=== PATIENT | female | born 1940 | race American Indian/Alaskan Native ===

== ENCOUNTER 2016-11-27 12:33 | Inpatient (IN) | payer MEDICARE ==
[2016-11-27 14:16] LABS: Basophils % (Auto) 0.4 % (0.0-1.8); Eosinophils % (Auto) 1.2 % (0.0-4.3); Hematocrit 38.6 % (30.3-42.9); Hemoglobin 12.4 gm/dl (10.1-14.3); Mean Corpuscular HGB Conc 32 % (30-34); Mean Corpuscular Hemoglobin 29 pg (28-32); Mean Corpuscular Volume 91 fl (79-97); Platelet Count 143 K/mm3 (140-440); Red Blood Count 4.24 M/mm3 (3.65-5.03); White Blood Count 4.7 K/mm3 (4.5-11.0)
[2016-11-27 14:54] LABS: Alanine Aminotransferase 16 units/L (7-56); Albumin 3.5 g/dL (3.9-5); Albumin/Globulin Ratio 0.8 %; Alkaline Phosphatase 98 units/L (35-129); Anion Gap 18 mmol/L; BUN/Creatinine Ratio 17.77; Bilirubin,Total 0.7 mg/dL (0.1-1.2); Blood Urea Nitrogen 16 mg/dL (7-17); Calcium 9.1 mg/dL (8.4-10.2); Carbon Dioxide 21 mmol/L (22-30); Chloride 112.3 mmol/L (98-107); Glucose 104 mg/dL (65-100); Potassium 4.7 mmol/L (3.6-5.0); Sodium 147 mmol/L (137-145)
[2016-11-28] MEDS ORDERED: CEPHULAC PO ONE (00:31)
[2016-11-28 00:52] LABS: Bilirubin,Urine NEG (Negative); Blood,Urine SM (Negative); Ketones,Urine NEG (Negative); Leukocyte Esterase,Urine LG (Negative); Nitrite,Urine POS (Negative); Urobilinogen,Urine < 2.0 mg/dL (<2.0)
[2016-11-28 01:35] LABS: Bacteria,Urine 4+ /HPF (Negative)
[2016-11-28 01:36] LABS: WBC,Urine > 182.0 /HPF (0.0-6.0)
[2016-11-28] MEDS ORDERED: LEVAQUIN 750MG/150ML 750 MG/150 ML BAG IV ONE (01:40)
--- NOTE | 2016-11-28 01:42 | Emergency Department Report ---
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 Family states that she is less talkative today and although she is wheelchair bound she can typically walk with assistance of a person holding onto her. She is weaker today and eating completely assistance. No complaints of pain, nausea, vomiting, and patient is tolerating food and liquid intake. Patient was recently admitted here for hepatic encephalopathy. She was discharged on lactulose 3 times a day and rifaximin twice a day. 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 Daughter states that since taking patient out of the custodial on the she has not had a bowel movement despite receiving lactulose twice daily. While waiting in the ED patient developed some stuttering speech which is typical of when her ammonia level is elevated as per daughter. Severity scale (0 -10): 6 - Related Data Home Medications Medication Instructions Recorded Confirmed Last Taken Gabapentin [Neurontin] 100 mg PO BID 11/28/16 11/28/16 11/27/16 Losartan [Cozaar] 100 mg PO QDAY 11/28/16 11/28/16 11/27/16 Omeprazole 20 mg PO DAILY 11/28/16 11/28/16 11/27/16 amLODIPine [Norvasc] 5 mg PO DAILY 11/28/16 11/28/16 11/27/16 levETIRAcetam [Keppra TAB] 500 mg PO BID 11/28/16 11/28/16 11/27/16 Previous Rx's Medication Instructions Recorded Last Taken Type Lactulose [Cephulac] 20 gm PO Q8H oral.liqd 11/04/16 11/27/16 Rx Rifaximin [Xifaxan] 550 mg PO BID tablet 11/04/16 11/27/16 Rx Allergies Allergy/AdvReac Type Severity Reaction Status Date / Time Penicillins Allergy Unknown Verified 11/27/16 13:34 ED Review of Systems ROS: Stated complaint: FEELING BAD Other details as noted in HPI Comment: All other systems reviewed and negative Other: Constitutional: No fevers chills Eyes: No eye pain visual changes ENT: No ear pain or throat pain Neck: Denies pain Respiratory: Denies cough wheezing shortness of breath Cardiovascular: Denies chest pain, palpitations, syncope GI: Denies abdominal pain, nausea, vomiting, diarrhea : Denies dysuria Musculoskeletal: Denies back pain Skin: Denies rash Neurologic: Denies headache ED Past Medical Hx - Past Medical History Hx Hypertension: Yes Hx CVA: Yes (5 strokes right side weakness,with memory loss) Hx Arthritis: Yes Hx Seizures: Yes Additional medical history: peptic ulcer, c-diff, cirrohsis of the liver, - Surgical History Additional Surgical History: hysterectomy - Social History Smoking Status: Never Smoker Substance Use Type: None - Medications Home Medications: Home Medications Medication Instructions Recorded Confirmed Last Taken Type Lactulose [Cephulac] 20 gm PO Q8H oral.liqd 11/04/16 11/28/16 11/27/16 Rx Rifaximin [Xifaxan] 550 mg PO BID tablet 11/04/16 11/28/16 11/27/16 Rx Gabapentin [Neurontin] 100 mg PO BID 11/28/16 11/28/16 11/27/16 History Losartan [Cozaar] 100 mg PO QDAY 11/28/16 11/28/16 11/27/16 History Omeprazole 20 mg PO DAILY 11/28/16 11/28/16 11/27/16 History amLODIPine [Norvasc] 5 mg PO DAILY 11/28/16 11/28/16 11/27/16 History levETIRAcetam [Keppra TAB] 500 mg PO BID 11/28/16 11/28/16 11/27/16 History ED Physical Exam - General Limitations: Other - Other Other exam information: General: No limitations, patient is alert in no acute distress Head exam: Atraumatic, normocephalic Eyes exam: Normal appearance, pupils equal reactive to light, extraocular movements intact ENT: Moist mucous membrane, normal oropharynx Neck exam: Normal inspection, full range of motion, no meningismus nontender Respiratory exam: Clear to auscultation bilateral, no wheezes, rales, crackles Cardiovascular: Normal rate and rhythm, normal heart sounds Abdomen: Soft, nondistended, and nontender, with normal bowel sounds, no rebound, or guarding Extremity: Full range of motion normal inspection no deformity Back: Normal Inspection, full range of motion, no tenderness Neurologic: Alert, oriented x3, no facial droop, stuttering speech, no drift when raising bilateral arms or legs. Sensation grossly intact Psychiatric: normal affect, normal mood Skin: Warm, dry, intact ED Course Vital Signs 11/27/16 11/28/16 13:35 00:26 Temperature 97.4 F L 97.6 F Pulse Rate 60 59 L Respiratory 20 18 Rate Blood Pressure 187/98 Blood Pressure 177/76 [Right] O2 Sat by Pulse 100 100 Oximetry - Reevaluation(s) Reevaluation #1: 11/28/16 01:48 IV Levaquin, urine culture, and lactulose ordered in the ED ED Medical Decision Making - Lab Data Result diagrams: 11/27/16 13:48 11/27/16 13:48 Lab Results 11/27/16 11/27/16 11/27/16 Range/Units 13:48 13:48 13:48 WBC 4.7 (4.5-11.0) K/mm3 RBC 4.24 (3.65-5.03) M/mm3 Hgb 12.4 (10.1-14.3) gm/dl Hct 38.6 (30.3-42.9) % MCV 91 (79-97) fl MCH 29 (28-32) pg MCHC 32 (30-34) % RDW 16.0 H (13.2-15.2) % Plt Count 143 (140-440) K/mm3 Lymph % (Auto) 32.3 (13.4-35.0) % [place] % (Auto) 14.1 H (0.0-7.3) % Eos % (Auto) 1.2 (0.0-4.3) % Baso % (Auto) 0.4 (0.0-1.8) % Lymph # 1.5 (1.2-5.4) K/mm3 [place] # 0.7 (0.0-0.8) K/mm3 Eos # 0.1 (0.0-0.4) K/mm3 Baso # 0.0 (0.0-0.1) K/mm3 Seg Neutrophils % 52.0 (40.0-70.0) % Seg Neutrophils # 2.4 (1.8-7.7) K/mm3 Sodium 147 H (137-145) mmol/L Potassium 4.7 (3.6-5.0) mmol/L Chloride 112.3 H (98-107) mmol/L Carbon Dioxide 21 L (22-30) mmol/L Anion Gap 18 mmol/L BUN 16 (7-17) mg/dL Creatinine 0.9 (0.7-1.2) mg/dL Estimated GFR > 60 ml/min BUN/Creatinine Ratio 17.77 % Glucose 104 H (65-100) mg/dL Lactic Acid 2.0 (0.7-2.0) mmol/L Calcium 9.1 (8.4-10.2) mg/dL Magnesium 2.0 (1.7-2.3) mg/dL Total Bilirubin 0.7 (0.1-1.2) mg/dL AST 27 (5-40) units/L ALT 16 (7-56) units/L Alkaline Phosphatase 98 (35-129) units/L Ammonia (25-60) umol/L Total Protein 8.0 (6.3-8.2) g/dL Albumin 3.5 L (3.9-5) g/dL Albumin/Globulin Ratio 0.8 % TSH (0.270-4.200) mlU/mL Urine Color (Yellow) Urine Turbidity (Clear) Urine pH (5.0-7.0) Ur Specific [place] (1.003-1.030) Urine Protein (Negative) mg/dL Urine Glucose (UA) (Negative) mg/dL Urine Ketones (Negative) mg/dL Urine Blood (Negative) Urine Nitrite (Negative) Urine Bilirubin (Negative) Urine Urobilinogen (<2.0) mg/dL Ur Leukocyte Esterase (Negative) Urine WBC (Auto) (0.0-6.0) /HPF Urine RBC (Auto) (0.0-6.0) /HPF U Epithel Cells (Auto) (0-13.0) /HPF Urine Bacteria (Auto) (Negative) /HPF Ur Transition Epith Cell /HPF Triple Phos Crystals Amorphous Crystals Hyaline Casts /LPF 11/27/16 11/27/16 11/27/16 Range/Units 13:48 13:48 16:50 WBC (4.5-11.0) K/mm3 RBC (3.65-5.03) M/mm3 Hgb (10.1-14.3) gm/dl Hct (30.3-42.9) % MCV (79-97) fl MCH (28-32) pg MCHC (30-34) % RDW (13.2-15.2) % Plt Count (140-440) K/mm3 Lymph % (Auto) (13.4-35.0) % [place] % (Auto) (0.0-7.3) % Eos % (Auto) (0.0-4.3) % Baso % (Auto) (0.0-1.8) % Lymph # (1.2-5.4) K/mm3 [place] # (0.0-0.8) K/mm3 Eos # (0.0-0.4) K/mm3 Baso # (0.0-0.1) K/mm3 Seg Neutrophils % (40.0-70.0) % Seg Neutrophils # (1.8-7.7) K/mm3 Sodium (137-145) mmol/L Potassium (3.6-5.0) mmol/L Chloride (98-107) mmol/L Carbon Dioxide (22-30) mmol/L Anion Gap mmol/L BUN (7-17) mg/dL Creatinine (0.7-1.2) mg/dL Estimated GFR ml/min BUN/Creatinine Ratio % Glucose (65-100) mg/dL Lactic Acid 2.1 H* (0.7-2.0) mmol/L Calcium (8.4-10.2) mg/dL Magnesium (1.7-2.3) mg/dL Total Bilirubin (0.1-1.2) mg/dL AST (5-40) units/L ALT (7-56) units/L Alkaline Phosphatase (35-129) units/L Ammonia 67.0 H (25-60) umol/L Total Protein (6.3-8.2) g/dL Albumin (3.9-5) g/dL Albumin/Globulin Ratio % TSH 2.090 (0.270-4.200) mlU/mL Urine Color (Yellow) Urine Turbidity (Clear) Urine pH (5.0-7.0) Ur Specific [place] (1.003-1.030) Urine Protein (Negative) mg/dL Urine Glucose (UA) (Negative) mg/dL Urine Ketones (Negative) mg/dL Urine Blood (Negative) Urine Nitrite (Negative) Urine Bilirubin (Negative) Urine Urobilinogen (<2.0) mg/dL Ur Leukocyte Esterase (Negative) Urine WBC (Auto) (0.0-6.0) /HPF Urine RBC (Auto) (0.0-6.0) /HPF U Epithel Cells (Auto) (0-13.0) /HPF Urine Bacteria (Auto) (Negative) /HPF Ur Transition Epith Cell /HPF Triple Phos Crystals Amorphous Crystals Hyaline Casts /LPF 11/28/16 Range/Units 00:44 WBC (4.5-11.0) K/mm3 RBC (3.65-5.03) M/mm3 Hgb (10.1-14.3) gm/dl Hct (30.3-42.9) % MCV (79-97) fl MCH (28-32) pg MCHC (30-34) % RDW (13.2-15.2) % Plt Count (140-440) K/mm3 Lymph % (Auto) (13.4-35.0) % [place] % (Auto) (0.0-7.3) % Eos % (Auto) (0.0-4.3) % Baso % (Auto) (0.0-1.8) % Lymph # (1.2-5.4) K/mm3 [place] # (0.0-0.8) K/mm3 Eos # (0.0-0.4) K/mm3 Baso # (0.0-0.1) K/mm3 Seg Neutrophils % (40.0-70.0) % Seg Neutrophils # (1.8-7.7) K/mm3 Sodium (137-145) mmol/L Potassium (3.6-5.0) mmol/L Chloride (98-107) mmol/L Carbon Dioxide (22-30) mmol/L Anion Gap mmol/L BUN (7-17) mg/dL Creatinine (0.7-1.2) mg/dL Estimated GFR ml/min BUN/Creatinine Ratio % Glucose (65-100) mg/dL Lactic Acid (0.7-2.0) mmol/L Calcium (8.4-10.2) mg/dL Magnesium (1.7-2.3) mg/dL Total Bilirubin (0.1-1.2) mg/dL AST (5-40) units/L ALT (7-56) units/L Alkaline Phosphatase (35-129) units/L Ammonia (25-60) umol/L Total Protein (6.3-8.2) g/dL Albumin (3.9-5) g/dL Albumin/Globulin Ratio % TSH (0.270-4.200) mlU/mL Urine Color [place] (Yellow) Urine Turbidity Turbid (Clear) Urine pH 8.0 H (5.0-7.0) Ur Specific [place] 1.013 (1.003-1.030) Urine Protein 100 mg/dl (Negative) mg/dL Urine Glucose (UA) Neg (Negative) mg/dL Urine Ketones Neg (Negative) mg/dL Urine Blood Sm (Negative) Urine Nitrite Pos (Negative) Urine Bilirubin Neg (Negative) Urine Urobilinogen < 2.0 (<2.0) mg/dL Ur Leukocyte Esterase Lg (Negative) Urine WBC (Auto) > 182.0 H (0.0-6.0) /HPF Urine RBC (Auto) 25.0 (0.0-6.0) /HPF U Epithel Cells (Auto) 21.0 H (0-13.0) /HPF Urine Bacteria (Auto) 4+ (Negative) /HPF Ur Transition Epith Cell 4 /HPF Triple Phos Crystals 1+ Amorphous Crystals 3+ Hyaline Casts 7 /LPF - EKG Data -: EKG Interpreted by Me (sinus rhythm rate 61 LVH) - EKG Data When compared to previous EKG there are: no significant change (compared to ) - Medical Decision Making Patient is not receiving the proper dose of lactulose which could be contributing to her elevated ammonia level. I suspect that patient's generalized weakness and change is related to an acute urinary tract infection as well as mild ammonia. Patient be admitted to the hospital for further treatment. Urine culture ordered and pending. - Differential Diagnosis UTI, encephalopathy, CVA, infection Critical Care Time: No Critical care attestation.: If time is entered above; I have spent that time in minutes in the direct care of this critically ill patient, excluding procedure time. ED Disposition Clinical Impression: Generalized weakness, Hepatic encephalopathy, Urinary tract infection, Debility Disposition: OP ADMITTED IP TO THIS HOSP Is pt being admited?: Yes Condition: Stable Referrals: SHILO LEONE MD [Primary Care Provider] - 3-5 Days Time of Disposition: 01:42 (Dr saleem/hosp)
[2016-11-28] MEDS ORDERED: ZOFRAN IV PRN (02:02)
[2016-11-28] MEDS ORDERED: TYLENOL PO PRN (02:02)
--- NOTE | 2016-11-28 02:05 | History and Physical Report ---
History of Present Illness Date of examination: 11/28/16 History of present illness: 76-year-old woman with a history of cirrhosis, hypertension, seizure, CVA with hemiparesis, memory loss was brought to the emergency room for generalized weakness. Daughter state that the patient was discharged from the senior care on Tuesday. she has difficulty ambulating at home. She also state that the patient seems a little bit more disoriented Patient denies chest pain, palpitation, shortness of breath, cough, abdominal pain, hematochezia, dysuria, frequency, focal weakness, dysarthria, fever chills , polydipsia polyuria, hot or cold intolerance, easy bruisability, or rash or bleeding from mucosal membrane, rhinorrhea, epistaxis, earache, tinnitus, blurry vision, eye discharge, anxiety, depression. Other review of systems negative PAST SURGICAL HISTORY: Fatty tumor removal from the face SOCIAL HISTORY: Alcohol, tobacco, drugs FAMILY HISTORY: Hypertension Medications and Allergies Allergies Allergy/AdvReac Type Severity Reaction Status Date / Time Penicillins Allergy Unknown Verified 11/27/16 13:34 Home Medications Medication Instructions Recorded Confirmed Last Taken Type Lactulose [Cephulac] 20 gm PO Q8H oral.liqd 11/04/16 11/28/16 11/27/16 Rx Rifaximin [Xifaxan] 550 mg PO BID tablet 11/04/16 11/28/16 11/27/16 Rx Gabapentin [Neurontin] 100 mg PO BID 11/28/16 11/28/16 11/27/16 History Losartan [Cozaar] 100 mg PO QDAY 11/28/16 11/28/16 11/27/16 History Omeprazole 20 mg PO DAILY 11/28/16 11/28/16 11/27/16 History amLODIPine [Norvasc] 5 mg PO DAILY 11/28/16 11/28/16 11/27/16 History levETIRAcetam [Keppra TAB] 500 mg PO BID 11/28/16 11/28/16 11/27/16 History Active Meds: Active Medications Amlodipine Besylate (Norvasc) 5 mg PO DAILY KRISTIN Gabapentin (Neurontin) 100 mg PO BID KRISTIN Levofloxacin/Dextrose (Levaquin 750mg/150ml) 750 mg in 150 mls @ 100 mls/hr IV ONCE ONE Stop: 11/28/16 03:09 Lactulose (Cephulac) 20 gm PO Q8H [facility] Levetiracetam (Keppra) 500 mg PO BID [facility] Miscellaneous Medication (Omeprazole [Omeprazole]) 20 mg PO DAILY KRISTIN Rifaximin (Xifaxan) 550 mg PO BID KRISTIN Exam - Physical Exam Narrative exam: Gen. appearance: Patient lying in bed, no apparent distress HEENT: Normocephalic, atraumatic, pupils equally round and reactive to light, extraocular movement intact, and no sclericterus,. No JVD or thyromegaly or nodule,neck supple, no carotid bruit ,mucous membranes moist, no exudate or erythema Heart: S1, S2, regular rate and rhythm Lungs: Clear to auscultation bilaterally, breathing comfortable Abdomen: Positive bowel sounds, nontender, nondistended, no organomegaly Extremity: 2+ edema, no cyanosis, clubbing Skin: No rash, nodules, warm, dry Neuro: Oriented 3, cranial nerves II-12 intact, speech is fluent, motor and sensory intact - Constitutional Vitals: Temp Pulse Resp BP Pulse Ox 97.6 F 59 L 18 177/76 100 11/28/16 00:26 11/28/16 00:26 11/28/16 00:26 11/28/16 00:26 11/28/16 00:26 Results - Labs CBC & Chem 7: 11/27/16 13:48 11/27/16 13:48 Labs: Abnormal lab results 11/27/16 11/27/16 11/27/16 Range/Units 13:48 13:48 13:48 RDW 16.0 H (13.2-15.2) % [place] % (Auto) 14.1 H (0.0-7.3) % Sodium 147 H (137-145) mmol/L Chloride 112.3 H (98-107) mmol/L Carbon Dioxide 21 L (22-30) mmol/L Glucose 104 H (65-100) mg/dL Lactic Acid (0.7-2.0) mmol/L Ammonia 67.0 H (25-60) umol/L Albumin 3.5 L (3.9-5) g/dL Urine pH (5.0-7.0) Urine WBC (Auto) (0.0-6.0) /HPF U Epithel Cells (Auto) (0-13.0) /HPF 11/27/16 11/28/16 Range/Units 16:50 00:44 RDW (13.2-15.2) % [place] % (Auto) (0.0-7.3) % Sodium (137-145) mmol/L Chloride (98-107) mmol/L Carbon Dioxide (22-30) mmol/L Glucose (65-100) mg/dL Lactic Acid 2.1 H* (0.7-2.0) mmol/L Ammonia (25-60) umol/L Albumin (3.9-5) g/dL Urine pH 8.0 H (5.0-7.0) Urine WBC (Auto) > 182.0 H (0.0-6.0) /HPF U Epithel Cells (Auto) 21.0 H (0-13.0) /HPF Assessment and Plan Hepatic encephalopathy Urinary tract infection Hypernatremia Hypertension Cirrhosis Seizure Admits medicine Start IV antibiotics, lactulose Diurese with Lasix Continue outpatient medication, start DVT prophylaxis
[2016-11-28] MEDS: CEPHULAC PO SCH ×3 (03:41→22:43)
[2016-11-28] MEDS ORDERED: LOVENOX SUB-Q SCH (10:00)
--- NOTE | 2016-11-28 11:40 | Event Note ---
Date: 11/28/16 Patient admitted for UTI, patient chronically sick cirrhosis and was in the custodial. Recently discharged from custodial.
[2016-11-28] MEDS: XIFAXAN PO SCH ×2 (12:15→22:42)
[2016-11-28] MEDS: NORVASC PO SCH (12:16)
[2016-11-28] MEDS: LASIX PO SCH (12:16)
[2016-11-28] MEDS: NEURONTIN PO SCH ×2 (12:17→22:42)
[2016-11-28] MEDS: KEPPRA PO SCH ×2 (12:17→22:42)
[2016-11-28] MEDS: LEVAQUIN 750MG/150ML 750 MG/150 ML BAG IV SCH (12:18)
[2016-11-28] MEDS: PROTONIX PO SCH (14:06)
[2016-11-29] MEDS: CEPHULAC PO SCH ×2 (04:21→14:40)
[2016-11-29 08:02] LABS: Basophils % (Auto) 0.3 % (0.0-1.8); Eosinophils % (Auto) 3.7 % (0.0-4.3); Hematocrit 34.5 % (30.3-42.9); Hemoglobin 11.2 gm/dl (10.1-14.3); Mean Corpuscular HGB Conc 32 % (30-34); Mean Corpuscular Hemoglobin 29 pg (28-32); Mean Corpuscular Volume 91 fl (79-97); Platelet Count 135 K/mm3 (140-440); Red Blood Count 3.79 M/mm3 (3.65-5.03); Red Cell Distribution Width 15.9 % (13.2-15.2); White Blood Count 4.4 K/mm3 (4.5-11.0)
[2016-11-29 08:10] LABS: Anion Gap 17 mmol/L; Blood Urea Nitrogen 10 mg/dL (7-17); Calcium 8.7 mg/dL (8.4-10.2); Carbon Dioxide 21 mmol/L (22-30); Chloride 111.2 mmol/L (98-107); Glucose 85 mg/dL (65-100); Potassium 3.9 mmol/L (3.6-5.0); Sodium 145 mmol/L (137-145)
--- NOTE | 2016-11-29 10:17 | Admit Criteria Form ---
Admission Criteria Documentation: LIVER DISEASE COMPLICATIONS Clinical Indications for Admission to Inpatient Care (Place 'X' for any and all applicable criteria): Admission is indicated for patient with ANY ONE of the following(1)(2)(3)(4): [ ]I. Inpatient admission required rather than observation care because of ANY ONE of the following: [ ]a) Hemodynamic instability that is severe or persistent [ ]b) Severe electrolyte abnormalities requiring inpatient care [ ]c) Respiratory compromise that is severe or persistent [ ]d) Coagulation abnormal that is severe or persistent [ ]e) Severe pain requiring acute inpatient management [ ]f) Renal insufficiency that is severe or worsening [ ]g) Metabolic abnormalities (e.g., vomiting, hypoglycemia, acidosis) that are severe or persistent [ ]h) Hypovolemia or hypervolemia that is severe or persistent [ ]i) Absent bowel sounds with complete ileus(2) [ ]j) Signs of intestinal obstruction or peritonitis[A] [ ]k) IV fluid to replace significant ongoing losses (>3 L/m2 per day) [ ]l) Continuous IV infusion of anticoagulation, platelet inhibitor, vasoactive, or antiarrhythmic medication [ ]m) Percutaneous or open drainage (e.g., abscess, biliary tract) procedures [ ]n) Parenteral nutrition regimen that must be implemented on inpatient basis [ ]o) Other condition treatment or monitoring requiring inpatient admission [ ]II. Infected hepatic hydrothorax (eg, empyema) [ ]III. Hepatorenal syndrome (eg, elevated. creatinine with adequate volume status and negative evaluation for other cause)(8) [ ]IV. Spontaneous bacterial peritonitis [ ]V. Suspected infected ascites as indicated by ANY ONE of the following: [ ]a) Temp >100 degrees F (37.8 C ) [ ]b) High WBC count [ ]c) Abdominal pain or tenderness not relieved by paracentesis [X]. New-onset or worsening hepatic encephalopathy(7) [ ]VII. Suspected fulminant hepatic failure (e.g., acute coagulopathy with hepatic encephalopathy or acute elevation of hepatic transaminases to more than 15 times baseline)(4) [ ]VIII. Acute hepatitis (e.g., ALT and AST at least 3 times baseline) with coagulopathy or severe jaundice as indicated by ANY ONE of the following(9)(10): [ ]a) Bilirubin >20 mg/dL (342 moles/L)(11) [ ]b) Acute elevation of PT to >50% above normal or INR >1.5 [ ] IX. Treatment of injury from hepatotoxin (e.g., acetaminophen) that requires inpatient monitoring [ ] X. Acute fatty liver of Extended stay beyond goal length of stay may be needed for(3)(7): [ ]a) Hepatorenal syndrome [ ]b) Severe or persistent hepatic encephalopathy [ ]c) Renal failure due to other causes associated with cirrhosis (e.g., hypovolemia) [ ]d) Severe or persistent coagulation abnormalities [ ]e) Refractory ascites, volume, or electrolyte abnormality [ ]f) Severe or persistent gastroesophageal bleeding [ ]g) Severe infectious or hepatotoxin-induced hepatitis (eg, acetaminophen) [ ]h) Hemodynamic instability that is severe or persistent The original [employer] [facility] content created by [employer] has been revised. The portions of the content which have been revised are identified through the use of italic text or in bold, and [facility] has neither reviewed nor approved the modified material. All other unmodified content is copyright [facility]. Please see references footnoted in the original [employer] edition 2016 Admission Criteria Met: Yes
[2016-11-29] MEDS ORDERED: LEVAQUIN 250MG/50ML 250 MG/50 ML BAG IV SCH (11:30)
[2016-11-29] MEDS: LASIX PO SCH (12:27)
[2016-11-29] MEDS: KEPPRA PO SCH (12:27)
[2016-11-29] MEDS: XIFAXAN PO SCH (12:27)
[2016-11-29] MEDS: PROTONIX PO SCH (12:27)
[2016-11-29] MEDS: NEURONTIN PO SCH (12:28)
[2016-11-29] MEDS: LEVAQUIN 750MG/150ML 750 MG/150 ML BAG IV SCH (12:30)
[2016-11-29] MEDS: NORVASC PO SCH (12:36)
--- NOTE | 2016-11-29 16:17 | Discharge Summary ---
Providers - Providers Date of Admission: 11/28/16 02:02 Date of discharge: 11/29/16 Attending physician: MARTHA LEVIN MD 11/28/16 08:05 Physical Therapy Evaluation and Treat [CONS] Routine Comment: Reason For Exam: weakness Primary care physician: SHILO LEONE Hospitalization Reason for admission: Disorientation, UTI Condition: Stable Disposition: DISCHARGED TO HOME OR SELFCARE Time spent for discharge: 31 minutes - Discharge Diagnoses (1) Debility Status: Acute (2) Generalized weakness Status: Acute (3) Hepatic encephalopathy Status: Acute (4) Urinary tract infection Status: Acute Qualifiers: Urinary tract infection type: U Hematuria presence: H Indwelling urinary catheter type: I Encounter type: E (5) Cirrhosis, Laennec's Status: Acute (6) Elevated lactic acid level Status: Acute Core Measure Documentation - Palliative Care Palliative Care/ Comfort Measures: Not Applicable - Core Measures Any of the following diagnoses?: none Exam - Physical Exam Narrative exam: Not in cardiopulmonary distress. Vital signs as documented. Head exam is unremarkable. No scleral icterus . Neck is without jugular venous distension, thyromegaly, or carotid bruits. Lungs are clear to auscultation. Cardiac exam reveals regular rate and Rhythm. First and second heart sounds normal. No murmurs, rubs or gallops. Abdominal exam reveals normal bowel sounds, no masses, no organomegaly and no aortic enlargement. Extremities are nonedematous and both femoral and pedal pulses are normal. CARDIAC NURSE SPECIALIST: Alert and oriented 2. . - Constitutional Vitals: Temp Pulse Resp BP Pulse Ox 98.2 F 72 18 179/84 99 11/29/16 08:00 11/29/16 15:55 11/29/16 15:55 11/29/16 12:36 11/29/16 08:00 Plan Activity: advance as tolerated Weight Bearing Status: Weight Bear as Tolerated Diet: regular Follow up with: SHILO LEONE MD [Primary Care Provider] - 3-5 Days Prescriptions: Levofloxacin [Levaquin] 250 mg PO QDAY #5 tablet
[2016-11-29 16:24] VITALS: BP 156/80
== END 2016-11-29 17:50 | disposition home or self-care (01) | DRG 442 ==
LOC: ED 12:33 → 3A 11-28 02:02
PROVIDERS: ADMIT Internal Medicine; ATTEND Internal Medicine
DX: K72.90 Hepatic failure, unspecified without coma (principal); N39.0 Urinary tract infection, site not specified; E87.0 Hyperosmolality and hypernatremia; I69.351 Hemiplegia and hemiparesis following cerebral infarction affecting right dominant side; M19.90 Unspecified osteoarthritis, unspecified site; R53.81 Other malaise; K70.30 Alcoholic cirrhosis of liver without ascites; I10 Essential (primary) hypertension; R74.0 Nonspecific elevation of levels of transaminase and lactic acid dehydrogenase [LDH]; Z88.0 Allergy status to penicillin; I69.311 Memory deficit following cerebral infarction; Z79.899 Other long term (current) drug therapy; Z87.11 Personal history of peptic ulcer disease; Z86.19 Personal history of other infectious and parasitic diseases; Z90.710 Acquired absence of both cervix and uterus; Z98.890 Other specified postprocedural states; Z82.49 Family history of ischemic heart disease and other diseases of the circulatory system
CPT/HCPCS: 36415; 80048; 80053; 81001; 82140; 82962; 83735; 84443; 85025; 87086; 93005; 93010; 96374; G8978-GP; G8979-GP; J1956

== ENCOUNTER 2021-04-15 06:57 | Day surgery (SDC) | payer MEDICARE ==
[~2021-04-15 06:57] MED LIST: IOHEXOL 300 MG/ML 50ML IV ONE; LACTATED RINGERS 1,000 ML IV SCH; WATER FOR IRRIG STERILE 1,500 ML BOTTLE IR ONE
[2021-04-15] MEDS ORDERED: BACTERIOSTATIC SODIUM CHLORIDE 0.9% 30 ML VIAL INFILTRATI ONE (07:16)
[2021-04-15] MEDS ORDERED: GENTAMICIN/NS 80 MG/100 ML 100 ML IV SCH (08:00)
[2021-04-15 08:24] LABS: Hematocrit 28.5 % (30.3-42.9); Hemoglobin 9.6 gm/dl (10.1-14.3); Mean Corpuscular HGB Conc 34 % (30-34); Mean Corpuscular Volume 90 fl (79-97); Platelet Count 203 K/mm3 (140-440); Red Blood Count 3.16 M/mm3 (3.65-5.03)
[2021-04-15 08:38] LABS: Albumin 2.8 g/dL (3.9-5); Calcium 8.9 mg/dL (8.4-10.2)
--- NOTE | 2021-04-15 09:02 | Anesthesia Consultation ---
Anesthesia Consult and Med Hx Date of service: 04/15/21 - Airway Anesthetic Teeth Evaluation: Poor, Partials, Edentulous ROM Head & Neck: Adequate Mental/Hyoid Distance: Adequate Mallampati Class: Class II Intubation Access Assessment: Good - Pulmonary Exam CTA: Yes - Cardiac Exam Cardiac Exam: RRR - Pre-Operative Health Status ASA Pre-Surgery Classification: ASA3 Proposed Anesthetic Plan: General - Pulmonary Hx Smoking: Yes (former smoker) Hx Respiratory Symptoms: No SOB: Yes (SOB) Hx Sleep Apnea: No (JANIS PRE SCREEN LOW RISK) - Cardiovascular System Hx Hypertension: Yes (poorly controlled) Hx Coronary Artery Disease: Yes Hx Percutaneous Transluminal Coronary Angioplasty (PTCA): No - Central Nervous System Hx Seizures: Yes (no seizure in >10yrs) CVA: Yes (MULTIPLE ( X5) 14 YRS AGO-RT SIDED WEAKNESS.MEMORY LOSS) Hx Psychiatric Problems: (CONFUSION) - Gastrointestinal Hx Ulcer: Yes - Endocrine Hx Cirrhosis: Yes Hx Liver Disease: Yes (LIVER MASS) - Hematic Hx Anemia: Yes - Other Systems Hx Cancer: No
--- NOTE | 2021-04-15 09:02 | Anesthesia Day of Surgery ---
Anesthesia Day of Surgery - Day of Surgery Patient Examined: Yes Patient H&P Reviewed: Yes Patient is NPO: Yes
[2021-04-15] MEDS ORDERED: propofoL 200 MG/20 ML VIAL IV ONE (09:08)
[2021-04-15] MEDS ORDERED: IOHEXOL 300 MG/ML 50ML IV ONE (09:27)
[2021-04-15] MEDS ORDERED: WATER FOR IRRIG STERILE 1,500 ML BOTTLE IR ONE (09:27)
[2021-04-15] MEDS ORDERED: ePHEDrine SULFATE 50 MG/1 ML INJ ONE (09:28)
[2021-04-15] MEDS ORDERED: SODIUM CHLORIDE P/F VIAL 10 ML 10 ML ONE (09:33)
[2021-04-15] MEDS ORDERED: ONDANSETRON 4 MG/2 ML INJ ONE (09:49)
[2021-04-15] MEDS ORDERED: PHENYLEPHRINE/NS 1,000 MCG/10 ML SYRINGE (OR USE) IV ONE (10:03)
--- NOTE | 2021-04-15 10:11 | Short Stay Summary ---
Short Stay Documentation Date of service: 04/15/21 - History H&P: obtained from office - Allergies and Medications Current Medications: Allergies No Known Allergies Allergy (Unverified 04/15/21 08:22) Home Medications Medication Instructions Recorded Confirmed Last Taken Type Gabapentin 100 mg PO BID 11/28/16 04/01/21 04/14/21 History levETIRAcetam [Keppra TAB] 500 mg PO BID 11/28/16 04/15/21 04/14/21 21:00 History Torsemide [Demadex] 10 mg PO QDAY 12/26/20 04/01/21 04/14/21 History Pantoprazole [Protonix TAB] 20 mg PO QDAY tablet. 12/29/20 04/01/21 04/14/21 Rx Rifaximin [Xifaxan] 550 mg PO BID tablet 12/29/20 04/01/21 04/14/21 Rx oxyCODONE /ACETAMINOPHEN [Percocet 1 tab PO Q6H PRN #10 tablet 12/29/20 04/01/21 04/14/21 Rx 5/325 mg] Active Medications Lactated Ringer's (Lactated Ringers) 1,000 mls @ 100 mls/hr IV DIRECT KRISTIN Last Admin: 04/15/21 08:08 Dose: 100 mls/hr Documented by: Gentamicin Sulfate/Sodium Chloride (Gentamicin/Ns 80 Mg/100 Ml) 100 mls @ 200 mls/hr IV PREOP KRISTIN Stop: 04/15/21 14:00 - Brief post op/procedure progress note Date of procedure: 04/15/21 Pre-op diagnosis: left hydronephrosis Post-op diagnosis: other (left ureteral stone) Procedure: cysto. left rpg, ueteroscopy , basket stone extraction , stent exchange with external string Anesthesia: GETA Surgeon: JAMES COFFMAN Estimated blood loss: minimal Pathology: none Condition: stable - Hospital course Hospital course: cipr, ultram, post op info on chart - Disposition Condition at discharge: Stable Short Stay Discharge Plan Follow up with: PRIMARY CARE, [Primary Care Provider] - 7 Days
[2021-04-15] MEDS ORDERED: HYDROmorphone 1 MG/1 ML INJ ONE (10:14)
[2021-04-15] MEDS: HYDROmorphone 1 MG/1 ML INJ IV PRN ×2 (10:16→10:30)
[2021-04-15] MEDS ORDERED: HYDROmorphone 1 MG/1 ML INJ IV PRN (10:18)
[2021-04-15] MEDS ORDERED: ONDANSETRON 4 MG/2 ML INJ IV PRN (10:18)
--- NOTE | 2021-04-15 10:43 | Fluoroscopy Report ---
. INTRAOPERATIVE FLUOROSCOPY INDICATION / CLINICAL INFORMATION: HYDRONEPHROSIS. TECHNIQUE: Intraoperative spot images were obtained during the procedure. FINDINGS: Intraoperative fluoroscopy images for retrograde urography and left stent exchange. See operative/procedure note by performing physician for full details. Fluoroscopy Time: 23 seconds. Fluoroscopy Images: 7. Signer Name: Michael Romero MD Signed: 04/15/2021 10:39 AM Workstation Name: [id number]
[2021-04-15] MEDS ORDERED: traMADol 50 MG TAB PO PRN (11:00)
[2021-04-15 13:52] VITALS: BP 146/65
--- NOTE | 2021-04-15 13:54 | Operative Report ---
DATE OF SURGERY: 04/15/2021 PREOPERATIVE DIAGNOSIS: Left hydronephrosis; a 6 mm stone. POSTOPERATIVE DIAGNOSIS: Left hydronephrosis; a 6 mm stone. PROCEDURES PERFORMED: Cystoscopy, left retrograde pyelogram, left ureteroscopy, basket stone extraction, double-J stent exchange with an external string (6-Ivorian 24 cm). SURGEON: Aguilar Tipton MD ANESTHESIA: General. ESTIMATED BLOOD LOSS: Minimal. FLUIDS: Crystalloid. COMPLICATIONS: No complications. INDICATIONS: This patient is an 80-year-old female who initially was admitted in the hospital in December for abdominal pain. CT of abdomen and pelvis revealed a left-sided stone, 6 mm. She underwent stent placement at that time for stabilization. She presents now for reevaluation, and her daughter was present for the visit. DESCRIPTION OF PROCEDURE: The patient was taken to the operative suite, placed in a supine position. After adequate general anesthesia, placed in a dorsal lithotomy position, prepped and draped in a sterile fashion. Pancystourethroscopy was performed with a 22-Ivorian Storz cystoscope. No urethral abnormalities. The patient had lots of debris in her bladder, was able to flush it out with saline, did not see the right ureteral orifice due to the edema. Stent could be in good position. A 0.035 Glidewire was placed through the stent, was unable to get it around the stent due to obstruction. Stent was removed. Rigid ureteroscopy was performed. A yellow stone could be appreciated at the lower aspect of the pelvic brim with edema. A 3-Ivorian Anushka basket was used to engage the stone and extracted, it will be given to the family. A rigid ureteroscopy to the renal pelvis. No other stones could be appreciated. There was edema at that site due to the impacted stone. Therefore, a 6-Ivorian 24 cm double-J stent with an external string was then replaced. Bladder was drained. She was extubated and taken to recovery room. She will go home on [facility] and follow up in the office. TID: [id number] RECEIPT: [id number] [facility]/[place]
--- NOTE | 2021-04-15 17:12 | Post Anesthesia Evaluation ---
- Post Anesthesia Evaluation Patient Participated: Yes Airway Patent: Yes Stable Respiratory Function: Yes Nausea/Vomiting: No Temp > 96.8F: Yes Pain Manageable: Yes Adequeate Hydration: Yes Anesthesia Complications: No Block Receding Appropriately: Not Applicable Patient on Ventilator: No
== END 2021-04-15 11:35 | disposition home or self-care (01) ==
LOC: OR 06:57
PROVIDERS: ATTEND Urology
DX: N13.2 Hydronephrosis with renal and ureteral calculous obstruction (principal); I11.0 Hypertensive heart disease with heart failure; I50.9 Heart failure, unspecified; I25.10 Atherosclerotic heart disease of native coronary artery without angina pectoris; M19.90 Unspecified osteoarthritis, unspecified site; Z90.710 Acquired absence of both cervix and uterus; Z98.890 Other specified postprocedural states; Z87.440 Personal history of urinary (tract) infections; Z79.899 Other long term (current) drug therapy; Z87.891 Personal history of nicotine dependence; Z86.73 Personal history of transient ischemic attack (TIA), and cerebral infarction without residual deficits; Z86.2 Personal history of diseases of the blood and blood-forming organs and certain disorders involving the immune mechanism
CPT/HCPCS: 36415; 52332; 52352; 74420; 80053; 85027; J1170; J1580; J2370; J2405; J2704; J7120; Q9967; C1758; C1769; C2617

== ENCOUNTER 2021-06-01 19:35 | Inpatient (IN) | payer MEDICARE ==
--- NOTE | 2021-06-01 20:36 | Event Note ---
Date: 06/01/21 The patient was evaluated in the emergency department for symptoms described in the history of present illness. He/she was evaluated in the context of the global COVID-19 pandemic, which necessitated consideration that the patient might be at risk for infection with the virus that causes COVID-19. Institutional protocols and algorithms that pertain to the evaluation of patients at risk for COVID-19 are in a state of rapid change based on information released by regulatory bodies including the CDC and federal and state organizations. These policies and algorithms were followed during the patient's care in the emergency department. Please note that these policies, procedures and recommendations changed on a rapid basis. Verbal report received from emergency medical services. 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 The patient herself denies physical pain. EMS states the patient recently got out of rehab. They state the patient is poorly mobile at baseline. The patient herself tells me that she occasionally walks with a walker. On my exam, she is in no acute distress, moving 4 extremities, with a soft benign abdomen, and somewhat confused. Obtain appropriate laboratory studies, EKG, chest x-ray, noncontrast CT scan of the brain, urinalysis, and perform detailed physical examination. Abdomen soft and benign.
[2021-06-01 21:06] LABS: Basophils % (Auto) 0.3 % (0.0-1.8); Eosinophils # (Auto) 0.1 K/mm3 (0.0-0.4); Eosinophils % (Auto) 1.1 % (0.0-4.3); Hematocrit 32.5 % (30.3-42.9); Hemoglobin 10.5 gm/dl (10.1-14.3); Lymphocytes # (Auto) 2.2 K/mm3 (1.2-5.4); Lymphocytes % (Auto) 32.2 % (13.4-35.0); Mean Corpuscular HGB Conc 32 % (30-34); Mean Corpuscular Volume 90 fl (79-97); Monocytes # (Auto) 0.9 K/mm3 (0.0-0.8); Monocytes % (Auto) 13.2 % (0.0-7.3); Platelet Count 141 K/mm3 (140-440); Red Cell Distribution Width 16.3 % (13.2-15.2)
[2021-06-01 21:38] LABS: INR 1.16 (0.87-1.13)
[2021-06-01 21:39] LABS: Chol/HDL Ratio 2.79 %
--- NOTE | 2021-06-01 22:09 | XRay Report ---
CHEST 1 VIEW 06/01/2021 9:29 PM INDICATION / CLINICAL INFORMATION: Weakness. COMPARISON: 12/26/2020 FINDINGS: SUPPORT DEVICES: None. HEART / MEDIASTINUM: Stable. LUNGS / PLEURA: No significant pulmonary or pleural abnormality. No pneumothorax. ADDITIONAL FINDINGS: No significant additional findings. IMPRESSION: 1. No acute findings. Stable exam from 12/26/2020. Signer Name: Dominic Hunt MD Signed: 06/01/2021 10:04 PM Workstation Name: [id number]
--- NOTE | 2021-06-01 22:14 | Emergency Department Report ---
ED General Adult HPI - General Chief complaint: Weakness Stated complaint: DECREASE APPETITE PUI?: No Source: patient, EMS (Verbal report received from emergency medical services. EMS documentation not available at time of chart dictation ), RN notes reviewed, old records reviewed Mode of arrival: Stretcher Limitations: Altered Mental Status, Physical Limitation - History of Present Illness Initial comments: The patient was evaluated in the emergency department for symptoms described in the history of present illness. He/she was evaluated in the context of the global COVID-19 pandemic, which necessitated consideration that the patient might be at risk for infection with the virus that causes COVID-19. Institutional protocols and algorithms that pertain to the evaluation of patients at risk for COVID-19 are in a state of rapid change based on information released by regulatory bodies including the CDC and federal and state organizations. These policies and algorithms were followed during the patient's care in the emergency department. Please note that these policies, procedures and recommendations changed on a rapid basis. The patient is an 80-year-old female. She is brought to the hospital by emergency medical services with a complaint of weakness and decrease in urination. 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 She is brought to the hospital by emergency medical services with a complaint of weakness and decreased urination. The patient herself denies physical pain. The patient does not describe exacerbating relieving factors. EMS tells me that the symptoms have been going on for "a while." The patient tells me that she is ambulatory with a walker. The patient was 4 extremities spontaneously. EMS reports unremarkable vital signs in the field. The patient is not currently accompanied by friends or family at this time for collateral information or additional information. -: Gradual Improves with: other Worsens with: other - Related Data Home Medications Medication Instructions Recorded Confirmed Last Taken Gabapentin 100 mg PO BID 11/28/16 04/01/21 04/14/21 levETIRAcetam [Keppra TAB] 500 mg PO BID 11/28/16 04/15/21 04/14/21 21:00 Torsemide [Demadex] 10 mg PO QDAY 12/26/20 04/01/21 04/14/21 Previous Rx's Medication Instructions Recorded Last Taken Type Pantoprazole [Protonix TAB] 20 mg PO QDAY tablet. 12/29/20 04/14/21 Rx Rifaximin [Xifaxan] 550 mg PO BID tablet 12/29/20 04/14/21 Rx oxyCODONE /ACETAMINOPHEN [Percocet 1 tab PO Q6H PRN #10 tablet 12/29/20 04/14/21 Rx 5/325 mg] Allergies Allergy/AdvReac Type Severity Reaction Status Date / Time No Known Allergies Allergy Unverified 04/15/21 08:22 ED Review of Systems ROS: Stated complaint: DECREASE APPETITE Other details as noted in HPI Comment: Unobtainable due to pts medical conditions Constitutional: malaise ENT: denies: epistaxis Respiratory: denies: cough Cardiovascular: denies: chest pain Gastrointestinal: denies: abdominal pain Neurological: weakness ED Past Medical Hx - Past Medical History Hx Hypertension: Yes (poorly controlled) Hx CVA: Yes (5 strokes right side weakness,with memory loss) Hx Congestive Heart Failure: Yes (UNKNOW LAST OCCURENCE) Hx Liver Disease: Yes (LIVER MASS) Hx Arthritis: Yes Hx Headaches / Migraines: Yes Hx Seizures: Yes (no seizure in >10yrs) Hx Kidney Stones: Yes Hx Dementia: Yes (MILD- GETS WORSE WHEN PT HAS UTI) Additional medical history: peptic ulcer, c-diff, cirrohsis of the liver, - Surgical History Additional Surgical History: hysterectomy - Social History Smoking Status: Former Smoker - Medications Home Medications: Home Medications Medication Instructions Recorded Confirmed Last Taken Type Gabapentin 100 mg PO BID 11/28/16 04/01/21 04/14/21 History levETIRAcetam [Keppra TAB] 500 mg PO BID 11/28/16 04/15/21 04/14/21 21:00 History Torsemide [Demadex] 10 mg PO QDAY 12/26/20 04/01/21 04/14/21 History Pantoprazole [Protonix TAB] 20 mg PO QDAY tablet. 12/29/20 04/01/21 04/14/21 Rx Rifaximin [Xifaxan] 550 mg PO BID tablet 12/29/20 04/01/21 04/14/21 Rx oxyCODONE /ACETAMINOPHEN [Percocet 1 tab PO Q6H PRN #10 tablet 12/29/20 04/01/21 04/14/21 Rx 5/325 mg] ED Physical Exam - General Limitations: Altered Mental Status, Physical Limitation General appearance: in no apparent distress - Head Head exam: Present: atraumatic, normocephalic - Eye Eye exam: Present: normal appearance, EOMI. Absent: nystagmus - ENT ENT exam: Present: normal exam, normal orophraynx, mucous membranes moist, normal external ear exam - Neck Neck exam: Present: normal inspection, full ROM. Absent: tenderness - Respiratory Respiratory exam: Present: decreased breath sounds. Absent: wheezes, rales, rhonchi, stridor - Cardiovascular Cardiovascular Exam: Present: normal rhythm, bradycardia, normal heart sounds, systolic murmur. Absent: tachycardia, irregular rhythm, diastolic murmur, rubs, gallop - GI/Abdominal GI/Abdominal exam: Present: soft. Absent: distended, tenderness, guarding, rebound, rigid, pulsatile mass - Rectal Rectal exam: Absent: normal inspection (Stage I sacral wound noted. Chaperoned by nurse Allegra Dominique) - External exam: Present: normal external exam, other (Chaperoned by nurse Allegra Orona). Absent: erythema, swelling, lesions, lacerations - Extremities Exam Extremities exam: Present: normal inspection, other (2+ pulses noted in the bilateral upper and lower extremities. There is no palpable cord. negative Homans sign. Muscular compartments are soft. The pelvis is stable.). Absent: calf tenderness - Back Exam Back exam: Present: normal inspection. Absent: tenderness, CVA tenderness (R), CVA tenderness (L), paraspinal tenderness, vertebral tenderness - Neurological Exam Neurological exam: Present: altered (The patient is awake. There is no facial droop. The patient is moving 4 extremities. The patient follows commands.) - Psychiatric Psychiatric exam: Present: flat affect - Skin Skin exam: Present: warm, dry, intact, normal color. Absent: rash ED Course Vital Signs 06/01/21 23:25 O2 Sat by Pulse 98 Oximetry [ Digit-Finger] - Reevaluation(s) Reevaluation #1: 06/01/21 23:23 Elevated troponin is likely a type II troponin leak. TSH at baseline. - Consultations Consultation #1: 06/01/21 23:06 Discussed patient's history, physical, laboratory studies and imaging studies with nephrology on-call, Dr. Byrnes He agrees with the plan of care, and will follow in consultation. - Catheter Insertion (Urinary) Indications: monitor urine output, other (Patient has acute renal failure. Track BUCK.) Does Patient Have: no penile implant, no artificial urethral sphincter Prophylactic Antibiotics Given: No Bladder Scan/US before Catherization: No Estimated Amount of Urine (mls): 400 Preparation: Providone-Iodine Type of Catheter Inserted: Fitzpatrick Catheter [place] Size: 16 Catheter Balloon Size (mls): 10 Topical Anesthesia Used: No Results: successfully catherized-immediate flow, urine sent for UA/ C&S Patient Tolerated Procedure: well Complications: none Additional Comments: Patient prepped in typical aseptic fashion. Sterile gloves applied, Fitzpatrick catheter inserted into urethral meatus, chaperoned by nurse Allegra Orona. Immediate return of cloudy purulent urine. - EJ/Peripheral Line Arm R Time Out Performed: Yes Indications: other (Expedite IV placement) Skin Cleansed in Sterile Fashion: Yes Size: 22 Dressing Placed: Tegaderm Patient Tolerated Procedure: well - Pulse Oximetry Interpretation Digit-Finger Initial Pulse Oximetry Readin O2 Sat by Pulse Oximetry: 98 Actions Taken: none ED Medical Decision Making - Lab Data Result diagrams: 06/01/21 20:38 06/01/21 20:38 Lab Results 06/01/21 06/01/21 06/01/21 Range/Units 20:38 20:38 20:38 WBC 6.9 (4.5-11.0) K/mm3 RBC 3.60 L (3.65-5.03) M/mm3 Hgb 10.5 (10.1-14.3) gm/dl Hct 32.5 (30.3-42.9) % MCV 90 (79-97) fl MCH 29 (28-32) pg MCHC 32 (30-34) % RDW 16.3 H (13.2-15.2) % Plt Count 141 (140-440) K/mm3 Lymph % (Auto) 32.2 (13.4-35.0) % [place] % (Auto) 13.2 H (0.0-7.3) % Eos % (Auto) 1.1 (0.0-4.3) % Baso % (Auto) 0.3 (0.0-1.8) % Lymph # (Auto) 2.2 (1.2-5.4) K/mm3 [place] # (Auto) 0.9 H (0.0-0.8) K/mm3 Eos # (Auto) 0.1 (0.0-0.4) K/mm3 Baso # (Auto) 0.0 (0.0-0.1) K/mm3 Seg Neutrophils % 53.2 (40.0-70.0) % Seg Neutrophils # 3.6 (1.8-7.7) K/mm3 PT 15.4 H (12.2-14.9) Sec. INR 1.16 H (0.87-1.13) Sodium 140 (137-145) mmol/L Potassium 6.2 H* (3.6-5.0) mmol/L Chloride 113.3 H (98-107) mmol/L Carbon Dioxide 15 L (22-30) mmol/L Anion Gap 18 mmol/L BUN 79 H (7-17) mg/dL Creatinine 4.1 H (0.6-1.2) mg/dL Estimated GFR 13 ml/min BUN/Creatinine Ratio 19 % Glucose 98 (65-100) mg/dL Calcium 10.0 (8.4-10.2) mg/dL Magnesium 2.80 H (1.7-2.3) mg/dL Total Bilirubin 0.70 (0.1-1.2) mg/dL AST 29 (5-40) units/L ALT 16 (7-56) units/L Alkaline Phosphatase 86 (35-129) units/L Ammonia (25-60) umol/L Total Creatine Kinase (30-135) units/L Troponin T 0.031 H (0.00-0.029) ng/mL Total Protein 8.3 H (6.3-8.2) g/dL Albumin 3.0 L (3.9-5) g/dL Albumin/Globulin Ratio 0.6 % Triglycerides 64 (2-149) mg/dL Cholesterol 95 (50-199) mg/dL LDL Cholesterol Direct 50 (50-130) mg/dL HDL Cholesterol 34 L (40-59) mg/dL Cholesterol/HDL Ratio 2.79 % TSH (0.270-4.200) mlU/mL 06/01/21 06/01/21 06/01/21 Range/Units 20:38 20:38 20:38 WBC (4.5-11.0) K/mm3 RBC (3.65-5.03) M/mm3 Hgb (10.1-14.3) gm/dl Hct (30.3-42.9) % MCV (79-97) fl MCH (28-32) pg MCHC (30-34) % RDW (13.2-15.2) % Plt Count (140-440) K/mm3 Lymph % (Auto) (13.4-35.0) % [place] % (Auto) (0.0-7.3) % Eos % (Auto) (0.0-4.3) % Baso % (Auto) (0.0-1.8) % Lymph # (Auto) (1.2-5.4) K/mm3 [place] # (Auto) (0.0-0.8) K/mm3 Eos # (Auto) (0.0-0.4) K/mm3 Baso # (Auto) (0.0-0.1) K/mm3 Seg Neutrophils % (40.0-70.0) % Seg Neutrophils # (1.8-7.7) K/mm3 PT (12.2-14.9) Sec. INR (0.87-1.13) Sodium (137-145) mmol/L Potassium (3.6-5.0) mmol/L Chloride (98-107) mmol/L Carbon Dioxide (22-30) mmol/L Anion Gap mmol/L BUN (7-17) mg/dL Creatinine (0.6-1.2) mg/dL Estimated GFR ml/min BUN/Creatinine Ratio % Glucose (65-100) mg/dL Calcium (8.4-10.2) mg/dL Magnesium (1.7-2.3) mg/dL Total Bilirubin (0.1-1.2) mg/dL AST (5-40) units/L ALT (7-56) units/L Alkaline Phosphatase (35-129) units/L Ammonia 31.0 (25-60) umol/L Total Creatine Kinase 41 (30-135) units/L Troponin T (0.00-0.029) ng/mL Total Protein (6.3-8.2) g/dL Albumin (3.9-5) g/dL Albumin/Globulin Ratio % Triglycerides (2-149) mg/dL Cholesterol (50-199) mg/dL LDL Cholesterol Direct (50-130) mg/dL HDL Cholesterol (40-59) mg/dL Cholesterol/HDL Ratio % TSH 0.230 L (0.270-4.200) mlU/mL - EKG Data -: EKG Interpreted by Me Rate: bradycardia - EKG Data 06/02/21 00:27 EKG is interpreted 12: 05 Sinus rhythm, bradycardia, rate 57 bpm. There is a normal axis. There is normal P wave axis. There is a first-degree AV block. There is motion artifact. The QTC is within normal limits. This is an abnormal EKG. This is not a STEMI - Radiology Data Radiology results: pending, report reviewed, image reviewed CHEST 1 VIEW 06/01/2021 9:29 PM INDICATION / CLINICAL INFORMATION: Weakness. COMPARISON: 12/26/2020 FINDINGS: SUPPORT DEVICES: None. HEART / MEDIASTINUM: Stable. LUNGS / PLEURA: No significant pulmonary or pleural abnormality. No pneumothorax. ADDITIONAL FINDINGS: No significant additional findings. IMPRESSION: 1. No acute findings. Stable exam from 12/26/2020. Signer Name: Dominic Hunt MD Signed: 06/01/2021 9:04 PM Workstation Name: [id number] Noncontrast [address] scan of the brain is negative for acute findings. - Medical Decision Making Differential diagnosis, including but not limited to: Pneumonia, urinary tract infection, electrolyte derangement, toxic encephalopathy, metabolic encephalopathy Assessment and plan: 80-year-old female, who was hypothermic with a core temperature of 95 degrees, with purulent urine, found to have renal insufficiency, and hyperkalemia, as well as metabolic acidosis. Suspect prerenal insufficiency. Fitzpatrick catheter placed. Hyperkalemia cocktail ordered. Chest x-ray unremarkable. The patient is not hypoxic. Nephrology has been consulted, please reference the details of the consultation in my note. No abdominal pain, tenderness, or CVA tenderness. Hold Kayexalate given propensity for this medication to cause colonic perforation and concretions. Medicate for hyperkalemia empirically. Obtain stat EKG. Start fluids and antibiotics. Start active patient rewarming. Admit patient to the medical service. Patient awake, moving 4 extremities, does not appear to be in any acute distress, and she is not hypoxic at this time. Patient will be admitted to the medical service under the care of Dr. Yahaira Zhou, and KERVIN Herron Critical Care Time: Yes Critical care time in (mins) excluding proc time.: 35 Critical care attestation.: If time is entered above; I have spent that time in minutes in the direct care of this critically ill patient, excluding procedure time. ED Disposition Clinical Impression: Hypothermia, MITCH (acute kidney injury), Metabolic acidosis, Hyperkalemia, Bradycardia, Urinary tract infection Disposition: ADMITTED INPATIENT Is pt being admited?: Yes Does the pt Need Aspirin: No Condition: Fair
[2021-06-01] MEDS ORDERED: ALBUTEROL 2.5 MG/3 ML NEBU IH ONE (22:44)
[2021-06-01] MEDS ORDERED: cefTRIAXone/NS 1 GM/50 ML 1 GM/50 ML BAG IV ONE (22:44)
[2021-06-01] MEDS ORDERED: DEXTROSE 50% IN WATER (25GM) 50 ML SYRINGE IV ONE (22:44)
[2021-06-01] MEDS ORDERED: INSULIN REGULAR, HUMAN 100 UNITS/1 ML IV ONE (22:44)
[2021-06-01] MEDS ORDERED: CALCIUM GLUCONATE 1,000 MG in SODIUM CHLORIDE 0.9% 100 ML IV ONE (22:44)
[2021-06-01] MEDS ORDERED: SODIUM CHLORIDE 0.9% 1000 ML 1,000 ML IV ONE (22:44)
[2021-06-01] MEDS ORDERED: SODIUM BICARB 8.4% 50 MEQ/50 ML SYRINGE IV ONE (22:44)
[2021-06-01] MEDS ORDERED: RIFAXIMIN 550 MG TAB PO STA (23:21)
[2021-06-01] MEDS ORDERED: levETIRAcetam 500 MG in DEXTROSE 5% IN WATER 100 ML IV ONE (23:21)
[2021-06-01] MEDS ORDERED: LEVOTHYROXINE 100 MCG INJ IV STA (23:23)
--- NOTE | 2021-06-01 23:28 | Cat Scan Report ---
CT head without contrast INDICATION : Patient complains of weakness. TECHNIQUE: Axial imaging performed from the skull apex through the skull base without the use of con trast. All CT scans at this location are performed using CT dose reduction for ALARA by means of aut omated exposure control. COMPARISON: None FINDINGS: Parenchyma: Diffuse cerebral atrophy and mild periventricular white matter disease. No mass, stroke o r hemorrhage. Ventricles: Mildly dilated on the basis of diffuse cerebral atrophy. Soft tissues: Soft tissues including the orbits appear normal. Bones: No acute osseous abnormality. Sinuses: Sinuses and mastoid air cells are clear. IMPRESSION: 1. Chronic changes of atrophy and small vessel ischemia. 2. No acute abnormality. Signer Name: Johnson East MD Signed: 06/01/2021 11:24 PM Workstation Name: [id number]
[2021-06-02 00:12] LABS: Bacteria,Urine 4+ /HPF (Negative); Bilirubin,Urine NEG (Negative); Blood,Urine LG (Negative); Color,Urine Yellow (Yellow); Urobilinogen,Urine < 2.0 mg/dL (<2.0)
[2021-06-02 00:13] LABS: WBC,Urine > 182.0 /HPF (0.0-6.0)
[2021-06-02] MEDS: levETIRAcetam 500 MG in DEXTROSE 5% IN WATER 100 ML IV SCH (00:17)
[2021-06-02] MEDS ORDERED: ONDANSETRON 4 MG/2 ML INJ IV PRN (00:31)
[2021-06-02] MEDS ORDERED: ALBUTEROL 2.5 MG/3 ML NEBU IH PRN (00:34)
[2021-06-02] MEDS ORDERED: HYDROmorphone 1 MG/1 ML INJ IV PRN (00:35)
[2021-06-02] MEDS ORDERED: NALOXONE 0.4 MG/1 ML INJ IV PRN (00:35)
[2021-06-02] MEDS ORDERED: D5W/0.45% NACL 1,000 ML IV SCH (01:00)
[2021-06-02] MEDS ORDERED: D5W/0.9% NACL 1,000 ML IV SCH (01:00)
[2021-06-02] MEDS ORDERED: CALCIUM GLUCONATE 1,000 MG in SODIUM CHLORIDE 0.9% 100 ML IV ONE (02:53)
[2021-06-02] MEDS ORDERED: SODIUM POLYSTYRENE 15 GM/60 ML ORAL LIQD PO ONE (02:53)
[2021-06-02] MEDS ORDERED: INSULIN REGULAR, HUMAN 100 UNITS/1 ML SUB-Q ONE (02:54)
[2021-06-02] MEDS ORDERED: DEXTROSE 50% IN WATER (25GM) 50 ML SYRINGE IV ONE (02:54)
[2021-06-02] MEDS ORDERED: SODIUM BICARB 8.4% 50 MEQ/50 ML SYRINGE IV ONE (02:55)
--- NOTE | 2021-06-02 03:00 | History and Physical Report ---
History of Present Illness Date of examination: 06/01/21 Date of admission: 06/01/21 23:20 Chief complaint: Generalized weakness and decreased urination History of present illness: 80-year-old -English female with history of seizure, cirrhosis, liver mass,?? Metastatic hepatocellular carcinoma, dementia, thrombocytopenia, malnutrition and chronic normocytic anemia who presents [facility] ED with complaints of weakness and decreased urination. Of note patient is a poor historian and provides limited history. History is obtained by medical and patient reports, and review of medical records. At the time of my examination patient's family member was not present at bedside. Patient states that her daughter brought her into the ED because she was feeling weak and had decreased urination. Patient endorses decreased urination, denies dysuria, urinary frequency, or hematuria. Endorses generalized weakness, but is unsure whether this is due to chronic mateo ility secondary to residual deficits from previous CVA. Denies fever, headache, chills, nausea, vomiting, shortness of breath, chest pain, palpitations, recent fall/injury, constipation, melena, or recent sick contacts Past History Past Medical History: seizures, other (Cirrhosis, liver mass,?? Hepatocellular carcinoma, dementia, C. difficile, peptic ulcer, renal stones, thrombocytopenia, normocytic anemia) Past Surgical History: hysterectomy, Other (Left renal stent (recently placed),) Social history: single, Lives alone Family history: no significant family history Medications and Allergies Allergies Allergy/AdvReac Type Severity Reaction Status Date / Time No Known Allergies Allergy Unverified 04/15/21 08:22 Home Medications Medication Instructions Recorded Confirmed Last Taken Type Gabapentin 100 mg PO BID 11/28/16 04/01/21 04/14/21 History levETIRAcetam [Keppra TAB] 500 mg PO BID 11/28/16 04/15/21 04/14/21 21:00 History Torsemide [Demadex] 10 mg PO QDAY 12/26/20 04/01/21 04/14/21 History Pantoprazole [Protonix TAB] 20 mg PO QDAY tablet. 12/29/20 04/01/21 04/14/21 Rx Rifaximin [Xifaxan] 550 mg PO BID tablet 12/29/20 04/01/21 04/14/21 Rx oxyCODONE /ACETAMINOPHEN [Percocet 1 tab PO Q6H PRN #10 tablet 12/29/20 04/01/21 04/14/21 Rx 5/325 mg] Active Meds: Active Medications Acetaminophen (Acetaminophen 325 Mg Tab) 650 mg PO Q4H PRN PRN Reason: Pain MILD(1-3)/Fever >100.5/GUEVARA Albuterol (Albuterol 2.5 Mg/3 Ml Nebu) 2.5 mg IH Q3HRT PRN PRN Reason: Shortness Of Breath Dextrose (Dextrose 50% In Water (25gm) 50 Ml Syringe) 50 ml IV ONCE ONE; Protocol Stop: 06/02/21 02:55 Docusate Sodium (Docusate Sodium 100 Mg Cap) 100 mg PO BID [facility] Heparin Sodium (Porcine) (Heparin 5,000 Unit/1 Ml Vial) 5,000 unit SUB-Q Q12HR KRISTIN Ceftriaxone Sodium (Rocephin/Ns 1 Gm/50 Ml) 1 gm in 50 mls @ 100 mls/hr IV Q24H KRISTIN; Protocol Dextrose/Sodium Chloride (D5/0.45ns) 1,000 mls @ 75 mls/hr IV DIRECT KRISTIN Stop: 06/02/21 12:00 Levetiracetam 500 mg/ Dextrose 105 mls @ 400 mls/hr IV Q12HR KRISTIN Calcium Gluconate 1,000 mg/ (Sodium Chloride) 110 mls @ 660 mls/hr IV ONCE ONE Stop: 06/02/21 03:02 Insulin Human Regular (Insulin Regular, Human 100 Units/1 Ml) 5 units SUB-Q ONCE ONE Stop: 06/02/21 02:55 Levothyroxine Sodium (Levothyroxine 75 Mcg Tab) 75 mcg PO DAILY@0600 [facility] Naloxone HCl (Naloxone 0.4 Mg/1 Ml Inj) 0.1 mg IV Q2MIN PRN PRN Reason: Res Rate </= 8 or 02 SAT < 92% Ondansetron HCl (Ondansetron 4 Mg/2 Ml Inj) 4 mg IV Q6H PRN PRN Reason: Nausea And Vomiting Oxycodone/Acetaminophen (Oxycodone /Acetaminophen 5-325mg Tab) 1 tab PO Q6H PRN PRN Reason: Pain, Moderate (4-6) Pantoprazole Sodium (Pantoprazole 40 Mg Inj) 40 mg IV QDAY [facility] Sodium Bicarbonate (Sodium Bicarb 8.4% 50 Meq/50 Ml Syringe) 50 meq IV ONCE ONE Stop: 06/02/21 02:56 Sodium Chloride (Sodium Chloride 0.9% 10 Ml Flush Syringe) 10 ml IV BID KRISTIN Sodium Chloride (Sodium Chloride 0.9% 10 Ml Flush Syringe) 10 ml IV PRN PRN PRN Reason: LINE FLUSH Sodium Polystyrene Sulfonate (Sodium Polystyrene 15 Gm/60 Ml Oral Liqd) 30 gm PO ONCE ONE Stop: 06/02/21 02:54 Review of Systems All systems: negative (As noted in HPI) Exam - Physical Exam Narrative exam: Physical exam General appearance: Present: No acute distress, alert and oriented 1-2, older adult female - EENT Eyes: Present: PERRL, EOM intact ENT: hearing intact, normal dentition - Neck Neck: Present: supple, normal ROM - Respiratory Respiratory effort: Non-labored Respiratory: Clear throughout - Cardiovascular Heart rate: 78 (bpm) Rhythm: Sinus Heart Sounds: Present: S1 & S2. Absent: rub, click - Extremities Extremities: no ischemia, pulses intact, - Peripheral Assessment Peripheral Pulses: within normal limits - Abdominal General gastrointestinal: soft, non-tender, normal bowel sounds - Integumentary Integumentary: Present: warm, dry - Musculoskeletal Musculoskeletal: Able to move all extremities, able to move against gravity, unable to move against resistance, generalized weakness -Neurological Neurological: CN II-XII intact - Psychiatric Psychiatric: cooperative - Constitutional Vitals: Temp Pulse Resp BP Pulse Ox 78 14 134/56 98 06/02/21 02:00 06/02/21 02:00 06/02/21 02:00 06/02/21 02:00 HEART Score - HEART Score Troponin: Troponin T 0.031 ng/mL (0.00-0.029) H 06/02/21 01:02 Results - Labs CBC & Chem 7: 06/01/21 20:38 06/02/21 01:02 Labs: Laboratory Last Values WBC 6.9 K/mm3 (4.5-11.0) 06/01/21 20:38 RBC 3.60 M/mm3 (3.65-5.03) L 06/01/21 20:38 Hgb 10.5 gm/dl (10.1-14.3) 06/01/21 20:38 Hct 32.5 % (30.3-42.9) 06/01/21 20:38 MCV 90 fl (79-97) 06/01/21 20:38 MCH 29 pg (28-32) 06/01/21 20:38 MCHC 32 % (30-34) 06/01/21 20:38 RDW 16.3 % (13.2-15.2) H 06/01/21 20:38 Plt Count 141 K/mm3 (140-440) 06/01/21 20:38 Lymph % (Auto) 32.2 % (13.4-35.0) 06/01/21 20:38 [place]dwell % (Auto) 13.2 % (0.0-7.3) H 06/01/21 20:38 Eos % (Auto) 1.1 % (0.0-4.3) 06/01/21 20:38 Baso % (Auto) 0.3 % (0.0-1.8) 06/01/21 20:38 Lymph # (Auto) 2.2 K/mm3 (1.2-5.4) 06/01/21 20:38 Caldwell # (Auto) 0.9 K/mm3 (0.0-0.8) H 06/01/21 20:38 Eos # (Auto) 0.1 K/mm3 (0.0-0.4) 06/01/21 20:38 Baso # (Auto) 0.0 K/mm3 (0.0-0.1) 06/01/21 20:38 Seg Neutrophils % 53.2 % (40.0-70.0) 06/01/21 20:38 Seg Neutrophils # 3.6 K/mm3 (1.8-7.7) 06/01/21 20:38 PT 15.4 Sec. (12.2-14.9) H 06/01/21 20:38 INR 1.16 (0.87-1.13) H 06/01/21 20:38 Sodium 140 mmol/L (137-145) 06/01/21 20:38 Potassium 6.3 mmol/L (3.6-5.0) H* 06/02/21 01:02 Chloride 113.3 mmol/L (98-107) H 06/01/21 20:38 Carbon Dioxide 15 mmol/L (22-30) L 06/01/21 20:38 Anion Gap 18 mmol/L 06/01/21 20:38 BUN 79 mg/dL (7-17) H 06/01/21 20:38 Creatinine 4.1 mg/dL (0.6-1.2) H 06/01/21 20:38 Estimated GFR 13 ml/min 06/01/21 20:38 BUN/Creatinine Ratio 19 % 06/01/21 20:38 Glucose 98 mg/dL (65-100) 06/01/21 20:38 POC Glucose 83 mg/dL (70-105) 06/02/21 00:04 Lactic Acid 1.10 mmol/L (0.7-2.0) 06/01/21 23:59 Calcium 10.0 mg/dL (8.4-10.2) 06/01/21 20:38 Magnesium 2.80 mg/dL (1.7-2.3) H 06/01/21 20:38 Total Bilirubin 0.70 mg/dL (0.1-1.2) 06/01/21 20:38 AST 29 units/L (5-40) 06/01/21 20:38 ALT 16 units/L (7-56) 06/01/21 20:38 Alkaline Phosphatase 86 units/L (35-129) 06/01/21 20:38 Ammonia 31.0 umol/L (25-60) 06/01/21 20:38 Total Creatine Kinase 41 units/L (30-135) 06/01/21 20:38 Troponin T 0.031 ng/mL (0.00-0.029) H 06/02/21 01:02 Total Protein 8.3 g/dL (6.3-8.2) H 06/01/21 20:38 Albumin 3.0 g/dL (3.9-5) L 06/01/21 20:38 Albumin/Globulin Ratio 0.6 % 06/01/21 20:38 Triglycerides 64 mg/dL (2-149) 06/01/21 20:38 Cholesterol 95 mg/dL (50-199) 06/01/21 20:38 LDL Cholesterol Direct 50 mg/dL (50-130) 06/01/21 20:38 HDL Cholesterol 34 mg/dL (40-59) L 06/01/21 20:38 Cholesterol/HDL Ratio 2.79 % 06/01/21 20:38 TSH 0.230 mlU/mL (0.270-4.200) L 06/01/21 20:38 Urine Color Yellow (Yellow) 06/01/21 Unknown Urine Turbidity Turbid (Clear) 06/01/21 Unknown Urine pH 5.0 (5.0-7.0) 06/01/21 Unknown Ur Specific Marshall 1.013 (1.003-1.030) 06/01/21 Unknown Urine Protein 100 mg/dl mg/dL (Negative) 06/01/21 Unknown Urine Glucose (UA) Neg mg/dL (Negative) 06/01/21 Unknown Urine Ketones Neg mg/dL (Negative) 06/01/21 Unknown Urine Blood Lg (Negative) 06/01/21 Unknown Urine Nitrite Neg (Negative) 06/01/21 Unknown Urine Bilirubin Neg (Negative) 06/01/21 Unknown Urine Urobilinogen < 2.0 mg/dL (<2.0) 06/01/21 Unknown Ur Leukocyte Esterase Mod (Negative) 06/01/21 Unknown Urine WBC (Auto) > 182.0 /HPF (0.0-6.0) H 06/01/21 Unknown Urine RBC (Auto) 174.0 /HPF (0.0-6.0) 06/01/21 Unknown U Epithel Cells (Auto) 32.0 /HPF (0-13.0) H 06/01/21 Unknown Urine Bacteria (Auto) 4+ /HPF (Negative) 06/01/21 Unknown Urine WBC Clumps 3+ /HPF 06/01/21 Unknown Urine Yeast (Budding) 3+ /HPF 06/01/21 Unknown - Imaging and Cardiology Imaging and Cardiology: CXR: FINDINGS: SUPPORT DEVICES: None. HEART / MEDIASTINUM: Stable. LUNGS / PLEURA: No significant pulmonary or pleural abnormality. No pneumothorax. ADDITIONAL FINDINGS: No significant additional findings. IMPRESSION: 1. No acute findings. Stable exam from 12/26/2020. FINDINGS: Parenchyma: Diffuse cerebral atrophy and mild periventricular white matter disease. No mass, stroke or hemorrhage. Ventricles: Mildly dilated on the basis of diffuse cerebral atrophy. Soft tissues: Soft tissues including the orbits appear normal. Bones: No acute osseous abnormality. Sinuses: Sinuses and mastoid air cells are clear. IMPRESSION: 1. Chronic changes of atrophy and small vessel ischemia. 2. No acute abnormality. Assessment and Plan Assessment and plan: Urinary tract infection -UA positive for UTI -urine wbc >182, moderate leukocyte, cloudy urine -Urine culture pending -on IV Abx Acute metabolic encephalopathy -CT head negative for acute abnormalities -Afebrile, no leukocytosis -Blood cultures pending -Neuro checks Hyperkalemia -on admission 6.2 -Received hyperkalemic cocktail -Kayexalate ordered -Receiving IVF -Continue to monitor electrolytes MITCH -Cr on admission 4.1 (baseline around 1.3 04/15/21) -Hydrate with IVF -Avoid nephrotoxic agents -Renal dose all meds -Nephrology (Dr. Glover) consulted Elevated troponin -EKG unrevealing for acute ischemic abnormalities -Troponin negative x2, will continue to trend -??? Type II NSTEMI -Day team may consider cardiology consult Mild to moderate malnutrition -Albumin 3.0 -Nutrition consult pending History of thyroid disorder -Hypothyroidism -TSH 0.230, T4 pending -Continue Synthroid 75 mcg daily History of thrombocytopenia -Platelets 142 -We will initiate DVT ppx heparin dose, monitor platelets if platelets drop <75 discontinue History of liver mass -Likely due to metastatic disease -Patient to follow-up with outpatient heme/onc History of stroke -Right-sided residual deficits -Initiate fall precaution -PT/ OT eval pending History of seizure -Initiate seizure precaution -Continue Keppra Chronic normocytic anemia -Hemoglobin on admission 10.5 -Stable -no s/s active bleeding -Continue to monitor hemoglobin -Transfuse as needed for Hgb<7 DVT and GI PPx -On Protonix and heparin Advance Directives: No VTE prophylaxis?: Chemical, Mechanical Plan of care discussed with patient/family: Yes
[2021-06-02] MEDS: LEVOTHYROXINE 75 MCG TAB PO SCH (06:10)
--- NOTE | 2021-06-02 09:47 | Consultation ---
History of Present Illness - Reason for Consult Consult date: 06/02/21 acute renal failure Requesting physician: JAMIE BARRETT - History of Present Illness This is a 80 yo F with past medical history of liver cirrhosis, liver mass, ? metastatic hepatocellular carcinoma, dementia, thrombocytopenia, malnutrition and anemia of chronic illness, who presents [facility] ED with complaints of weakness and decreased urination. Patient is poor historian and history is obtained by chart review. Pt denies fever, headache, chills, nausea, vomiting, shortness of breath, chest pain, palpitations, recent fall/injury, constipation, melena, or recent sick contacts. CXR showed no acute findings. CT head showed chronic changes of atrophy and small vessel ischemia,without acute abnormalities. Labs in ER showed elevated BUN/Cr at 79/4.1mg/dl along with elevated K > 6.2 and UA showed > 182WBC/HPF. Renal consult is requested for management of MITCH/hyperkalemia. Previous Cr was around 1.3-1.4. Past History Past Medical History: seizures, other (Cirrhosis, liver mass,?? Hepatocellular carcinoma, dementia, C. difficile, peptic ulcer, renal stones, thrombocytopenia, normocytic anemia) Past Surgical History: hysterectomy, Other (Left renal stent (recently placed),) Social history: single, Lives alone Family history: no significant family history Medications and Allergies Allergies Allergy/AdvReac Type Severity Reaction Status Date / Time No Known Allergies Allergy Unverified 04/15/21 08:22 Home Medications Medication Instructions Recorded Confirmed Last Taken Type Gabapentin 100 mg PO BID 11/28/16 04/01/21 04/14/21 History levETIRAcetam [Keppra TAB] 500 mg PO BID 11/28/16 04/15/21 04/14/21 21:00 History Torsemide [Demadex] 10 mg PO QDAY 12/26/20 04/01/21 04/14/21 History Pantoprazole [Protonix TAB] 20 mg PO QDAY tablet. 12/29/20 04/01/21 04/14/21 Rx Rifaximin [Xifaxan] 550 mg PO BID tablet 12/29/20 04/01/21 04/14/21 Rx oxyCODONE /ACETAMINOPHEN [Percocet 1 tab PO Q6H PRN #10 tablet 12/29/20 04/01/21 04/14/21 Rx 5/325 mg] Active Meds: Active Medications Acetaminophen (Acetaminophen 325 Mg Tab) 650 mg PO Q4H PRN PRN Reason: Pain MILD(1-3)/Fever >100.5/GUEVARA Albuterol (Albuterol 2.5 Mg/3 Ml Nebu) 2.5 mg IH Q3HRT PRN PRN Reason: Shortness Of Breath Docusate Sodium (Docusate Sodium 100 Mg Cap) 100 mg PO BID [facility] Heparin Sodium (Porcine) (Heparin 5,000 Unit/1 Ml Vial) 5,000 unit SUB-Q Q12HR [facility] Ceftriaxone Sodium (Rocephin/Ns 1 Gm/50 Ml) 1 gm in 50 mls @ 100 mls/hr IV Q24H [facility]; Protocol Dextrose/Sodium Chloride (D5/0.45ns) 1,000 mls @ 75 mls/hr IV DIRECT KRISTIN Stop: 06/02/21 12:00 Levetiracetam 500 mg/ Dextrose 105 mls @ 400 mls/hr IV Q12HR [facility] Levothyroxine Sodium (Levothyroxine 75 Mcg Tab) 75 mcg PO DAILY@0600 [facility] Last Admin: 06/02/21 06:10 Dose: 75 mcg Documented by: Naloxone HCl (Naloxone 0.4 Mg/1 Ml Inj) 0.1 mg IV Q2MIN PRN PRN Reason: Res Rate </= 8 or 02 SAT < 92% Ondansetron HCl (Ondansetron 4 Mg/2 Ml Inj) 4 mg IV Q6H PRN PRN Reason: Nausea And Vomiting Oxycodone/Acetaminophen (Oxycodone /Acetaminophen 5-325mg Tab) 1 tab PO Q6H PRN PRN Reason: Pain, Moderate (4-6) Pantoprazole Sodium (Pantoprazole 40 Mg Inj) 40 mg IV QDAY [facility] Sodium Chloride (Sodium Chloride 0.9% 10 Ml Flush Syringe) 10 ml IV BID [facility] Sodium Chloride (Sodium Chloride 0.9% 10 Ml Flush Syringe) 10 ml IV PRN PRN PRN Reason: LINE FLUSH Review of Systems All systems: negative Constitutional: fatigue, weakness, malaise, lethargy Exam - Vital Signs Vital signs: Vital Signs Pulse Ox 100 06/01/21 22:25 - General Appearance General appearance: well-developed, well-nourished, appears stated age EENT: ATNC, PERRL, mucous membranes moist Neck: Present: neck supple Respiratory: Clear to Ascultation Heart: regular, S1S2 Gastrointestinal: Present: normoactive bowel sounds Integumentary: no rash, other (no edema ) Neurologic: no focal deficit, alert and oriented x3, strength 5/5, CN 3-12 intact Psychiatric: mood/affect appropriate, cooperative Results - Lab Results 06/01/21 20:38 06/02/21 05:53 Most recent lab results Calcium 10.0 mg/dL (8.4-10.2) 06/01/21 20:38 Magnesium 2.80 mg/dL (1.7-2.3) H 06/01/21 20:38 Assessment and Plan - Patient Problems (1) MITCH (acute kidney injury) Current Visit: Yes Status: Acute Plan to address problem: acute kidney injury is most likely secondary to pre-renal azotemia in the setting of acute cystitis. check urine lytes, urine Protein/cr ratio. ordered renal US to rule out obstructive uropathy. cont IV hydration with D5NS at 75m/hr, avoid nephrotoxins, NSAIDs, IV contrast. K improved with medical treatment, no acute indication for renal repalcement therapy at present. will monitor lytes/renal parameters closely and make further recommendations. (2) Hyperkalemia Current Visit: Yes Status: Acute Plan to address problem: K improved s/p medical treatment, cont 2g K renal diet (3) Metabolic acidosis Current Visit: Yes Status: Acute Plan to address problem: start sodium bicarb 1300mg bid (4) Urinary tract infection Current Visit: Yes Status: Acute Plan to address problem: cont ABXs treatment with ceftriaxone, no dose adjustment needed
--- NOTE | 2021-06-02 09:54 | Electrocardiograph Report ---
[facility] Test Date: 2021-06-02 Test Time: 00:05:50 Pat Name: ANA ALANIZ Department: Room: A458 1 Gender: F Early Breastfeeding Care Specialist: ISIDRO : 1940 Requested By: RAKESH LEHMAN Order Number: [id number] Reading MD: Henok Adamson Measurements Intervals [place] Rate: 57 P: 63 MN: 222 QRS: 46 QRSD: 113 T: 36 QT: 433 QTc: 422 Interpretive Statements Sinus bradycardia Prolonged MN interval Nonspecific ST depression Compared to ECG 12/26/2020 08:38:49 First degree AV block now present ST (T wave) deviation now present Sinus rhythm no longer present Atrial premature complex(es) no longer present Left ventricular hypertrophy no longer present Early repolarization no longer present Electronically Signed On 06-02-2021 9:54:37 EDT by Henok Adamson
[2021-06-02] MEDS ORDERED: FAMOTIDINE 20 MG/2 ML INJ IV SCH (10:00)
--- NOTE | 2021-06-02 16:39 | Progress Note ---
Assessment and Plan Assessment and plan: --Urinary tract infection Continue empiric antibiotics Follow cultures, plenty of oral fluids IV fluids as needed --Acute metabolic encephalopathy -CT head negative for acute abnormalities Multifactorial, dementia, probably UTI Treat the underlying cause, supportive care --Hyperkalemia; on admission 6.2 Resolved, patient received treatment Closely monitor electrolytes --Acute kidney injury ; present on admission Vasomotor nephropathy Gentle hydration, monitor renal function, avoid nephrotoxin Creatinine trending down Nephrology following --Elevated troponin/non-ST elevation CO type II No cardiac symptoms like chest pain or shortness of breath Cardiac enzymes trending down Consider cardiology evaluation if needed --Moderate malnutrition/hypoalbuminemia Albumin 3.0, nutrition supplements, supportive care Nutrition consult if needed --History of hypothyroidism Continue Synthroid 75 mcg daily --History of thrombocytopenia Closely monitor --History of liver mass/metastatic disease Outpatient follow-up with hematology oncology --History of stroke ; with residual weakness PT OT, possible home with home health on discharge --History of seizure; Seizure precautions, continue Keppra --DVT and GI PPx -On Protonix and heparin[caution thrombocytopenia] We will closely monitor the patient and adjust management as needed Plan of care reviewed with the patient and her nurse Disposition; follow clinically And discharge when medically stable Follow consultants evaluation and recommendations. History Interval history: I have seen and examined the patient at the bedside Patient feels better no new complaints Minimal recommend Hospitalist Physical - Constitutional Vitals: Temp Pulse Resp BP Pulse Ox 97.9 F 61 9 L 85/42 100 06/02/21 04:32 06/02/21 10:00 06/02/21 10:00 06/02/21 10:00 06/02/21 10:00 General appearance: Present: no acute distress, well-nourished - EENT Eyes: Present: PERRL, EOM intact - Neck Neck: Present: supple, normal ROM - Respiratory Respiratory effort: normal Respiratory: bilateral: diminished, negative: rales, rhonchi, wheezing - Cardiovascular Rhythm: regular Heart Sounds: Present: S1 & S2 - Extremities Extremities: no ischemia, No edema - Abdominal General gastrointestinal: soft, non-tender, non-distended, normal bowel sounds - Integumentary Integumentary: Present: clear, warm - Psychiatric Psychiatric: appropriate mood/affect, cooperative, other - Neurologic Neurologic: moves all extremities (Dementia) HEART Score - HEART Score Troponin: Troponin T 0.029 ng/mL (0.00-0.029) 06/02/21 05:53 Results - Labs CBC & Chem 7: 06/01/21 20:38 06/02/21 05:53 Labs: Laboratory Last Values WBC 6.9 K/mm3 (4.5-11.0) 06/01/21 20:38 RBC 3.60 M/mm3 (3.65-5.03) L 06/01/21 20:38 Hgb 10.5 gm/dl (10.1-14.3) 06/01/21 20:38 Hct 32.5 % (30.3-42.9) 06/01/21 20:38 MCV 90 fl (79-97) 06/01/21 20:38 MCH 29 pg (28-32) 06/01/21 20:38 MCHC 32 % (30-34) 06/01/21 20:38 RDW 16.3 % (13.2-15.2) H 06/01/21 20:38 Plt Count 141 K/mm3 (140-440) 06/01/21 20:38 Lymph % (Auto) 32.2 % (13.4-35.0) 06/01/21 20:38 Mower % (Auto) 13.2 % (0.0-7.3) H 06/01/21 20:38 Eos % (Auto) 1.1 % (0.0-4.3) 06/01/21 20:38 Baso % (Auto) 0.3 % (0.0-1.8) 06/01/21 20:38 Lymph # (Auto) 2.2 K/mm3 (1.2-5.4) 06/01/21 20:38 Mower # (Auto) 0.9 K/mm3 (0.0-0.8) H 06/01/21 20:38 Eos # (Auto) 0.1 K/mm3 (0.0-0.4) 06/01/21 20:38 Baso # (Auto) 0.0 K/mm3 (0.0-0.1) 06/01/21 20:38 Seg Neutrophils % 53.2 % (40.0-70.0) 06/01/21 20:38 Seg Neutrophils # 3.6 K/mm3 (1.8-7.7) 06/01/21 20:38 PT 15.4 Sec. (12.2-14.9) H 06/01/21 20:38 INR 1.16 (0.87-1.13) H 06/01/21 20:38 Sodium 140 mmol/L (137-145) 06/01/21 20:38 Potassium 4.3 mmol/L (3.6-5.0) D 06/02/21 05:53 Chloride 113.3 mmol/L (98-107) H 06/01/21 20:38 Carbon Dioxide 15 mmol/L (22-30) L 06/01/21 20:38 Anion Gap 18 mmol/L 06/01/21 20:38 BUN 79 mg/dL (7-17) H 06/01/21 20:38 Creatinine 4.1 mg/dL (0.6-1.2) H 06/01/21 20:38 Estimated GFR 13 ml/min 06/01/21 20:38 BUN/Creatinine Ratio 19 % 06/01/21 20:38 Glucose 98 mg/dL (65-100) 06/01/21 20:38 POC Glucose 89 mg/dL (70-105) 06/02/21 03:01 Lactic Acid 1.10 mmol/L (0.7-2.0) 06/01/21 23:59 Calcium 10.0 mg/dL (8.4-10.2) 06/01/21 20:38 Magnesium 2.80 mg/dL (1.7-2.3) H 06/01/21 20:38 Total Bilirubin 0.70 mg/dL (0.1-1.2) 06/01/21 20:38 AST 29 units/L (5-40) 06/01/21 20:38 ALT 16 units/L (7-56) 06/01/21 20:38 Alkaline Phosphatase 86 units/L (35-129) 06/01/21 20:38 Ammonia 31.0 umol/L (25-60) 06/01/21 20:38 Total Creatine Kinase 41 units/L (30-135) 06/01/21 20:38 Troponin T 0.029 ng/mL (0.00-0.029) 06/02/21 05:53 Total Protein 8.3 g/dL (6.3-8.2) H 06/01/21 20:38 Albumin 3.0 g/dL (3.9-5) L 06/01/21 20:38 Albumin/Globulin Ratio 0.6 % 06/01/21 20:38 Triglycerides 64 mg/dL (2-149) 06/01/21 20:38 Cholesterol 95 mg/dL (50-199) 06/01/21 20:38 LDL Cholesterol Direct 50 mg/dL (50-130) 06/01/21 20:38 HDL Cholesterol 34 mg/dL (40-59) L 06/01/21 20:38 Cholesterol/HDL Ratio 2.79 % 06/01/21 20:38 TSH 0.230 mlU/mL (0.270-4.200) L 06/01/21 20:38 Free T4 1.43 ng/dL (0.76-1.46) 06/02/21 01:04 Thyroxine (T4) 10.4 ug/dL (4.0-12.0) 06/02/21 01:04 Urine Color Yellow (Yellow) 06/01/21 Unknown Urine Turbidity Turbid (Clear) 06/01/21 Unknown Urine pH 5.0 (5.0-7.0) 06/01/21 Unknown Ur Specific [place] 1.013 (1.003-1.030) 06/01/21 Unknown Urine Protein 100 mg/dl mg/dL (Negative) 06/01/21 Unknown Urine Glucose (UA) Neg mg/dL (Negative) 06/01/21 Unknown Urine Ketones Neg mg/dL (Negative) 06/01/21 Unknown Urine Blood Lg (Negative) 06/01/21 Unknown Urine Nitrite Neg (Negative) 06/01/21 Unknown Urine Bilirubin Neg (Negative) 06/01/21 Unknown Urine Urobilinogen < 2.0 mg/dL (<2.0) 06/01/21 Unknown Ur Leukocyte Esterase Mod (Negative) 06/01/21 Unknown Urine WBC (Auto) > 182.0 /HPF (0.0-6.0) H 06/01/21 Unknown Urine RBC (Auto) 174.0 /HPF (0.0-6.0) 06/01/21 Unknown U Epithel Cells (Auto) 32.0 /HPF (0-13.0) H 06/01/21 Unknown Urine Bacteria (Auto) 4+ /HPF (Negative) 06/01/21 Unknown Urine WBC Clumps 3+ /HPF 06/01/21 Unknown Urine Yeast (Budding) 3+ /HPF 06/01/21 Unknown Microbiology: Microbiology 06/01/21 23:50 Peripheral/Venous Blood Culture - Preliminary Culture in Progress 06/01/21 23:59 Peripheral/Venous Blood Culture - Preliminary Culture in Progress Active Medications - Current Medications Current Medications: Generic Name Dose Route Start Last Admin Trade Name Freq PRN Reason Stop Dose Admin Acetaminophen 650 mg 06/02/21 00:31 Acetaminophen 325 Mg Tab PO Q4H PRN Pain MILD(1-3)/Fever >100.5/GUEVARA Albuterol 2.5 mg 06/02/21 00:34 Albuterol 2.5 Mg/3 Ml Nebu IH Q3HRT PRN Shortness Of Breath Docusate Sodium 100 mg 06/02/21 10:00 Docusate Sodium 100 Mg Cap PO BID [facility] Heparin Sodium (Porcine) 5,000 unit 06/02/21 10:00 Heparin 5,000 Unit/1 Ml Vial SUB-Q Q12HR [facility] Ceftriaxone Sodium 1 gm in 50 mls @ 100 mls/hr 06/02/21 22:00 Rocephin/Ns 1 Gm/50 Ml IV Q24H [facility] Protocol Levetiracetam 500 mg/ Dextrose 105 mls @ 400 mls/hr 06/02/21 10:00 IV Q12HR [facility] Levothyroxine Sodium 75 mcg 06/02/21 06:00 06/02/21 06:10 Levothyroxine 75 Mcg Tab PO 75 mcg DAILY@0600 [facility] Administration Naloxone HCl 0.1 mg 06/02/21 00:35 Naloxone 0.4 Mg/1 Ml Inj IV Q2MIN PRN Res Rate </= 8 or 02 SAT < 92% Ondansetron HCl 4 mg 06/02/21 00:31 Ondansetron 4 Mg/2 Ml Inj IV Q6H PRN Nausea And Vomiting Oxycodone/Acetaminophen 1 tab 06/02/21 00:35 Oxycodone /Acetaminophen 5-325mg Tab PO Q6H PRN Pain, Moderate (4-6) Pantoprazole Sodium 40 mg 06/02/21 10:00 Pantoprazole 40 Mg Inj IV QDAY [facility] Sodium Chloride 10 ml 06/02/21 10:00 Sodium Chloride 0.9% 10 Ml Flush Syringe IV BID [facility] Sodium Chloride 10 ml 06/02/21 00:31 Sodium Chloride 0.9% 10 Ml Flush Syringe IV PRN PRN LINE FLUSH Nutrition/Malnutrition Assess - Dietary Evaluation Nutrition/Malnutrition Findings: Nutrition Notes Start: 06/02/21 10:10 Freq: Status: Active Protocol: Document 06/02/21 10:10 (Rec: 06/02/21 10:17 [id number]) Nutrition Notes Need for Assessment generated from: MD Order Initial or Follow up Brief Note Current Diagnosis Acute Kidney Injury,Stroke Other Pertinent Diagnosis seizure, cirrhosis, liver mass , metastatic carinoma, anemia, debility, UTI Current Diet cardiac Labs/Tests K 6.3 Subjective/Other Information MD consult for malnutrition. Pt did not answer phone. She is slighly confused, per chart . No ht and weight yet documented. Per RN, pt just got back from procedure and no intakes yet. Nutrition Intervention Follow-Up By: 06/03/21 Additional Comments F/u: malnutrition assessment
[2021-06-02] MEDS: SODIUM BICARBONATE 650 MG TAB PO SCH (19:48)
[2021-06-02] MEDS: PANTOPRAZOLE 40 MG INJ IV SCH (19:49)
[2021-06-02] MEDS: HEPARIN 5,000 UNIT/1 ML VIAL SUB-Q SCH (22:00)
[2021-06-03] MEDS: DOCUSATE SODIUM 100 MG CAP PO SCH ×4 (00:16→21:36)
[2021-06-03] MEDS: SODIUM BICARBONATE 650 MG TAB PO SCH ×3 (00:19→21:36)
[2021-06-03] MEDS: cefTRIAXone/NS 1 GM/50 ML 1 GM/50 ML BAG IV SCH (00:19)
[2021-06-03] MEDS: levETIRAcetam 500 MG in DEXTROSE 5% IN WATER 100 ML IV SCH ×2 (03:03→12:33)
[2021-06-03 05:52] LABS: Hematocrit 27.2 % (30.3-42.9); Mean Corpuscular HGB Conc 33 % (30-34); Mean Corpuscular Volume 90 fl (79-97); Platelet Count 106 K/mm3 (140-440); Red Blood Count 3.03 M/mm3 (3.65-5.03); Red Cell Distribution Width 16.5 % (13.2-15.2)
[2021-06-03] MEDS: LEVOTHYROXINE 75 MCG TAB PO SCH (05:57)
[2021-06-03 06:12] LABS: Albumin 2.6 g/dL (3.9-5); Calcium 9.8 mg/dL (8.4-10.2)
[2021-06-03] MEDS: HEPARIN 5,000 UNIT/1 ML VIAL SUB-Q SCH ×3 (08:00→21:36)
--- NOTE | 2021-06-03 09:44 | Progress Note ---
Assessment and Plan - Patient Problems (1) MITCH (acute kidney injury) Current Visit: Yes Status: Acute Plan to address problem: acute kidney injury is most likely secondary to pre-renal azotemia in the setting of acute cystitis. check urine lytes, urine Protein/cr ratio. ordered renal US to rule out obstructive uropathy. cont IV hydration with D5 1/2NS at 75m/hr, avoid nephrotoxins, NSAIDs, IV contrast. K improved with medical treatment, no acute indication for renal repalcement therapy at present. will monitor lytes/renal parameters closely and make further recommendations. (2) Hyperkalemia Current Visit: Yes Status: Acute Plan to address problem: K improved s/p medical treatment, cont 2g K renal diet (3) Metabolic acidosis Current Visit: Yes Status: Acute Plan to address problem: cont sodium bicarb 1300mg bid (4) Urinary tract infection Current Visit: Yes Status: Acute Plan to address problem: cont ABXs treatment with ceftriaxone, no dose adjustment needed Subjective Date of service: 06/03/21 Principal diagnosis: MITCH Interval history: Pt awake, alert, in no acute distress, plan for renal US this AM Objective - Vital Signs Vital signs: Vital Signs - 12hr 06/02/21 06/03/21 06/03/21 22:59 03:46 05:54 Temperature 98.2 F 97.3 F L Pulse Rate 56 L 57 L Respiratory 18 16 Rate Blood Pressure 97/49 102/47 O2 Sat by Pulse 100 100 100 Oximetry - General Appearance General appearance: well-developed, well-nourished, appears stated age EENT: ATNC, PERRL, mucous membranes moist Neck: no JVD Respiratory: Present: Clear to Ascultation Cardiology: regular, S1S2 Gastrointestinal: normoactive bowel sounds Integumentary: no rash Neurologic: no focal deficit, alert and oriented x3, strength 5/5, CN 3-12 intact Psychiatric: mood/affect appropriate, cooperative - Lab 06/03/21 04:22 06/03/21 04:22 Most recent lab results Calcium 9.8 mg/dL (8.4-10.2) 06/03/21 04:22 Magnesium 2.60 mg/dL (1.7-2.3) H 06/03/21 04:22 Medications & Allergies - Medications Allergies/Adverse Reactions: Allergies No Known Allergies Allergy (Unverified 04/15/21 08:22) Home Medications: Home Medications Medication Instructions Recorded Confirmed Last Taken Type Gabapentin 100 mg PO BID 11/28/16 04/01/21 04/14/21 History levETIRAcetam [Keppra TAB] 500 mg PO BID 11/28/16 04/15/21 04/14/21 21:00 History Torsemide [Demadex] 10 mg PO QDAY 12/26/20 04/01/21 04/14/21 History Pantoprazole [Protonix TAB] 20 mg PO QDAY tablet. 12/29/20 04/01/21 04/14/21 Rx Rifaximin [Xifaxan] 550 mg PO BID tablet 12/29/20 04/01/21 04/14/21 Rx oxyCODONE /ACETAMINOPHEN [Percocet 1 tab PO Q6H PRN #10 tablet 12/29/20 04/01/21 04/14/21 Rx 5/325 mg] Active Medications: Generic Name Dose Route Start Last Admin Trade Name Freq PRN Reason Stop Dose Admin Acetaminophen 650 mg 06/02/21 00:31 Acetaminophen 325 Mg Tab PO Q4H PRN Pain MILD(1-3)/Fever >100.5/GUEVARA Albuterol 2.5 mg 06/02/21 00:34 Albuterol 2.5 Mg/3 Ml Nebu IH Q3HRT PRN Shortness Of Breath Docusate Sodium 100 mg 06/02/21 10:00 06/03/21 08:00 Docusate Sodium 100 Mg Cap PO Not Given BID [facility] Heparin Sodium (Porcine) 5,000 unit 06/02/21 10:00 06/03/21 08:00 Heparin 5,000 Unit/1 Ml Vial SUB-Q Not Given Q12HR [facility] Ceftriaxone Sodium 1 gm in 50 mls @ 100 mls/hr 06/02/21 22:00 06/03/21 00:19 Rocephin/Ns 1 Gm/50 Ml IV 100 mls/hr Q24H [facility] Administration Protocol Levetiracetam 500 mg/ Dextrose 105 mls @ 400 mls/hr 06/02/21 10:00 06/03/21 03:03 IV Not Given Q12HR [facility] Levothyroxine Sodium 75 mcg 06/02/21 06:00 06/03/21 05:57 Levothyroxine 75 Mcg Tab PO 75 mcg DAILY@0600 [facility] Administration Naloxone HCl 0.1 mg 06/02/21 00:35 Naloxone 0.4 Mg/1 Ml Inj IV Q2MIN PRN Res Rate </= 8 or 02 SAT < 92% Ondansetron HCl 4 mg 06/02/21 00:31 Ondansetron 4 Mg/2 Ml Inj IV Q6H PRN Nausea And Vomiting Oxycodone/Acetaminophen 1 tab 06/02/21 00:35 Oxycodone /Acetaminophen 5-325mg Tab PO Q6H PRN Pain, Moderate (4-6) Pantoprazole Sodium 40 mg 06/02/21 10:00 06/02/21 19:49 Pantoprazole 40 Mg Inj IV 40 mg QDAY [facility] Administration Sodium Bicarbonate 1,300 mg 06/02/21 18:00 06/03/21 00:19 Sodium Bicarbonate 650 Mg Tab PO 1,300 mg BID [facility] Administration Sodium Chloride 10 ml 06/02/21 10:00 06/03/21 08:00 Sodium Chloride 0.9% 10 Ml Flush Syringe IV Not Given BID [facility]IN Sodium Chloride 10 ml 06/02/21 00:31 Sodium Chloride 0.9% 10 Ml Flush Syringe IV PRN PRN LINE FLUSH
[2021-06-03 10:26] LABS: Total Cells Counted 100
[2021-06-03 10:28] LABS: Anisocytosis 1+; Hypochromasia Few; Ovalocytes Few; Platelet Estimate Consistent w Auto
[2021-06-03] MEDS: PANTOPRAZOLE 40 MG INJ IV SCH (12:33)
[2021-06-03] MEDS: D5W/0.45% NACL 1,000 ML IV SCH (12:34)
[2021-06-03 14:14] LABS: Creatinine,Urine 105.1 mg/dL (0.1-20.0)
--- NOTE | 2021-06-03 14:26 | Ultrasound Report ---
ULTRASOUND RENAL INDICATION / CLINICAL INFORMATION: MITCH. COMPARISON: CT abdomen/pelvis without contrast 12/26/2020. FINDINGS: Technically difficult exam. RIGHT KIDNEY: Length = 10.4 cm. - Echogenicity: Normal. - Cortical Thickness: Normal. - Hydronephrosis: None. - Cyst / Mass: Simple appearing midpole cyst measuring 1.1 x 1.1 x 0.9 cm. - Stones: None seen. LEFT KIDNEY: Length = 10.6 cm. - Echogenicity: Normal. - Cortical Thickness: Normal. - Hydronephrosis: Moderate. - Cyst / Mass: Simple appearing midpole cyst measuring 3.4 x 3.6 x 3.1 cm, previously 3.[address] - Stones: None seen. URINARY BLADDER: The bladder appears moderately distended with a Fitzpatrick catheter visualized. There avis ears to be a small amount of layering debris within the left posterior aspect of the bladder. FREE FLUID: None. ADDITIONAL FINDINGS: None. IMPRESSION: 1. Simple bilateral renal cysts. 2. Moderate left hydronephrosis. No sonographic evidence of obstruction. 3. Moderately distended bladder with Fitzpatrick catheter in place and posterior layering debris. Scribed by: Kendra Mg RDMS, RVT Scribed: 06/03/2021 1:15 PM I have reviewed the images, agree with this report, and edited this report as needed. Signer Name: Abdiel Crowell MD Signed: 06/03/2021 2:22 PM Workstation Name[id number]
--- NOTE | 2021-06-03 18:55 | Progress Note ---
Assessment and Plan Assessment and plan: --Urinary tract infection Continue empiric antibiotics Follow cultures, plenty of oral fluids IV fluids as needed --Acute metabolic encephalopathy -CT head negative for acute abnormalities Multifactorial, dementia, probably UTI Treat the underlying cause, supportive care --Hyperkalemia; on admission 6.2 Resolved, patient received treatment Closely monitor electrolytes --Acute kidney injury ; present on admission Vasomotor nephropathy Gentle hydration, monitor renal function, avoid nephrotoxin Creatinine trending down Nephrology following --Elevated troponin/non-ST elevation MO type II No cardiac symptoms like chest pain or shortness of breath Cardiac enzymes trending down Consider cardiology evaluation if needed --Moderate malnutrition/hypoalbuminemia Albumin 3.0, nutrition supplements, supportive care Nutrition consult if needed --History of hypothyroidism Continue Synthroid 75 mcg daily --History of thrombocytopenia Closely monitor --History of liver mass/metastatic disease Outpatient follow-up with hematology oncology --History of stroke ; with residual weakness PT OT, possible home with home health on discharge --History of seizure; Seizure precautions, continue Keppra --DVT and GI PPx -On Protonix and heparin[caution thrombocytopenia] 06/03/2021: Patient is doing well. She is afebrile without acute GI symptoms. Patient denies dysuria abdominal pain lateral flank pain. MITCH is improving with IV fluids. Nephrology is following. History Interval history: patient is doing well. MITCH is improved with IV fluids. No acute GI symptoms. No chest pains palpitations dyspnea. No fever or chills. Hospitalist Physical - Constitutional Vitals: Temp Pulse Resp BP Pulse Ox 97.3 F L 76 16 102/47 96 06/03/21 03:46 06/03/21 10:27 06/03/21 03:46 06/03/21 03:46 06/03/21 10:27 General appearance: Present: no acute distress, well-nourished - EENT Eyes: Present: PERRL ENT: clear oral mucosa - Neck Neck: Present: supple. Absent: masses or JVD - Respiratory Respiratory effort: normal Respiratory: bilateral: CTA - Extremities Extremities: pulses intact Extremity abnormal: other (Trace pretibial edema) - Abdominal General gastrointestinal: soft, non-tender, non-distended, normal bowel sounds - Integumentary Integumentary: Absent: rash - Psychiatric Psychiatric: appropriate mood/affect - Neurologic Neurologic: no focal deficits HEART Score - HEART Score Troponin: Troponin T 0.029 ng/mL (0.00-0.029) 06/02/21 05:53 Results - Labs CBC & Chem 7: 06/03/21 04:22 06/04/21 04:28 Labs: Laboratory Last Values WBC 4.1 K/mm3 (4.5-11.0) L 06/03/21 04:22 RBC 3.03 M/mm3 (3.65-5.03) L 06/03/21 04:22 Hgb 9.0 gm/dl (10.1-14.3) L 06/03/21 04:22 Hct 27.2 % (30.3-42.9) L 06/03/21 04:22 MCV 90 fl (79-97) 06/03/21 04:22 MCH 30 pg (28-32) 06/03/21 04:22 MCHC 33 % (30-34) 06/03/21 04:22 RDW 16.5 % (13.2-15.2) H 06/03/21 04:22 Plt Count 106 K/mm3 (140-440) L 06/03/21 04:22 Lymph % (Auto) 32.2 % (13.4-35.0) 06/01/21 20:38 [place] % (Auto) Blind[place]ch [place]mer 06/03/21 04:22 Eos % (Auto) 1.1 % (0.0-4.3) 06/01/21 20:38 Baso % (Auto) 0.3 % (0.0-1.8) 06/01/21 20:38 Lymph # (Auto) 2.2 K/mm3 (1.2-5.4) 06/01/21 20:38 [place] # (Auto) 0.9 K/mm3 (0.0-0.8) H 06/01/21 20:38 Eos # (Auto) 0.1 K/mm3 (0.0-0.4) 06/01/21 20:38 Baso # (Auto) 0.0 K/mm3 (0.0-0.1) 06/01/21 20:38 Add Manual Diff Complete 06/03/21 04:22 Total Counted 100 06/03/21 04:22 Seg Neutrophils % 53.2 % (40.0-70.0) 06/01/21 20:38 Seg Neuts % (Manual) 66.0 % (40.0-70.0) 06/03/21 04:22 Lymphocytes % (Manual) 22.0 % (13.4-35.0) 06/03/21 04:22 Reactive Lymphs % (Man) 1.0 % 06/03/21 04:22 Monocytes % (Manual) 6.0 % (0.0-7.3) 06/03/21 04:22 Eosinophils % (Manual) 4.0 % (0.0-4.3) 06/03/21 04:22 Basophils % (Manual) 1.0 % (0.0-1.8) 06/03/21 04:22 Nucleated RBC % Not Reportable 06/03/21 04:22 Seg Neutrophils # 3.6 K/mm3 (1.8-7.7) 06/01/21 20:38 Seg Neutrophils # Man 2.7 K/mm3 (1.8-7.7) 06/03/21 04:22 Band Neutrophils # 0.0 K/mm3 06/03/21 04:22 Lymphocytes # (Manual) 0.9 K/mm3 (1.2-5.4) L 06/03/21 04:22 Abs React Lymphs (Man) 0.0 K/mm3 06/03/21 04:22 Monocytes # (Manual) 0.2 K/mm3 (0.0-0.8) 06/03/21 04:22 Eosinophils # (Manual) 0.2 K/mm3 (0.0-0.4) 06/03/21 04:22 Basophils # (Manual) 0.0 K/mm3 (0.0-0.1) 06/03/21 04:22 Metamyelocytes # 0.0 K/mm3 06/03/21 04:22 Myelocytes # 0.0 K/mm3 06/03/21 04:22 Promyelocytes # 0.0 K/mm3 06/03/21 04:22 Blast Cells # 0.0 K/mm3 06/03/21 04:22 WBC Morphology Not Reportable 06/03/21 04:22 Hypersegmented Neuts Not Reportable 06/03/21 04:22 Hyposegmented Neuts Not Reportable 06/03/21 04:22 Hypogranular Neuts Not Reportable 06/03/21 04:22 Smudge Cells Not Reportable 06/03/21 04:22 Toxic Granulation Not Reportable 06/03/21 04:22 Toxic Vacuolation Not Reportable 06/03/21 04:22 Dohle Bodies Not Reportable 06/03/21 04:22 Pelger-Huet Anomaly Not Reportable 06/03/21 04:22 Wilmer Rods Not Reportable 06/03/21 04:22 Platelet Estimate Consistent w auto 06/03/21 04:22 Clumped Platelets Not Reportable 06/03/21 04:22 Plt Clumps, EDTA Not Reportable 06/03/21 04:22 Large Platelets Not Reportable 06/03/21 04:22 Giant Platelets Not Reportable 06/03/21 04:22 Platelet Satelliting Not Reportable 06/03/21 04:22 Plt Morphology Comment Not Reportable 06/03/21 04:22 RBC Morphology Not Reportable 06/03/21 04:22 Dimorphic RBCs Not Reportable 06/03/21 04:22 Polychromasia Not Reportable 06/03/21 04:22 Hypochromasia Few 06/03/21 04:22 Poikilocytosis Not Reportable 06/03/21 04:22 Anisocytosis 1+ 06/03/21 04:22 Microcytosis Not Reportable 06/03/21 04:22 Macrocytosis Not Reportable 06/03/21 04:22 Spherocytes Not Reportable 06/03/21 04:22 Pappenheimer Bodies Not Reportable 06/03/21 04:22 Sickle Cells Not Reportable 06/03/21 04:22 Target Cells Not Reportable 06/03/21 04:22 Tear Drop Cells Not Reportable 06/03/21 04:22 Ovalocytes Few 06/03/21 04:22 Helmet Cells Not Reportable 06/03/21 04:22 Brown-Severn Bodies Not Reportable 06/03/21 04:22 Stites Rings Not Reportable 06/03/21 04:22 [place] Cells Not Reportable 06/03/21 04:22 Bite Cells Not Reportable 06/03/21 04:22 Crenated Cell Not Reportable 06/03/21 04:22 Elliptocytes Not Reportable 06/03/21 04:22 Acanthocytes (Spur) Not Reportable 06/03/21 04:22 Rouleaux Not Reportable 06/03/21 04:22 Hemoglobin C Crystals Not Reportable 06/03/21 04:22 Schistocytes Not Reportable 06/03/21 04:22 Malaria parasites Not Reportable 06/03/21 04:22 Al Bodies Not Reportable 06/03/21 04:22 Hem Pathologist Commnt No 06/03/21 04:22 PT 15.4 Sec. (12.2-14.9) H 06/01/21 20:38 INR 1.16 (0.87-1.13) H 06/01/21 20:38 Sodium 147 mmol/L (137-145) H 06/03/21 04:22 Potassium 5.1 mmol/L (3.6-5.0) H 06/03/21 04:22 Chloride 115.4 mmol/L (98-107) H 06/03/21 04:22 Carbon Dioxide 21 mmol/L (22-30) L 06/03/21 04:22 Anion Gap 16 mmol/L 06/03/21 04:22 BUN 68 mg/dL (7-17) H 06/03/21 04:22 Creatinine 2.9 mg/dL (0.6-1.2) H 06/03/21 04:22 Estimated GFR 19 ml/min 06/03/21 04:22 BUN/Creatinine Ratio 23 % 06/03/21 04:22 Glucose 72 mg/dL (65-100) 06/03/21 04:22 POC Glucose 89 mg/dL (70-105) 06/02/21 03:01 Lactic Acid 1.10 mmol/L (0.7-2.0) 06/01/21 23:59 Calcium 9.8 mg/dL (8.4-10.2) 06/03/21 04:22 Magnesium 2.60 mg/dL (1.7-2.3) H 06/03/21 04:22 Total Bilirubin 0.50 mg/dL (0.1-1.2) 06/03/21 04:22 AST 25 units/L (5-40) 06/03/21 04:22 ALT 13 units/L (7-56) 06/03/21 04:22 Alkaline Phosphatase 73 units/L (35-129) 06/03/21 04:22 Ammonia 31.0 umol/L (25-60) 06/01/21 20:38 Total Creatine Kinase 41 units/L (30-135) 06/01/21 20:38 Troponin T 0.029 ng/mL (0.00-0.029) 06/02/21 05:53 Total Protein 7.4 g/dL (6.3-8.2) 06/03/21 04:22 Albumin 2.6 g/dL (3.9-5) L 06/03/21 04:22 Albumin/Globulin Ratio 0.5 % 06/03/21 04:22 Triglycerides 64 mg/dL (2-149) 06/01/21 20:38 Cholesterol 95 mg/dL (50-199) 06/01/21 20:38 LDL Cholesterol Direct 50 mg/dL (50-130) 06/01/21 20:38 HDL Cholesterol 34 mg/dL (40-59) L 06/01/21 20:38 Cholesterol/HDL Ratio 2.79 % 06/01/21 20:38 TSH 0.230 mlU/mL (0.270-4.200) L 06/01/21 20:38 Free T4 1.43 ng/dL (0.76-1.46) 06/02/21 01:04 Thyroxine (T4) 10.4 ug/dL (4.0-12.0) 06/02/21 01:04 Urine Color Yellow (Yellow) 06/01/21 Unknown Urine Turbidity Turbid (Clear) 06/01/21 Unknown Urine pH 5.0 (5.0-7.0) 06/01/21 Unknown Ur Specific [place] 1.013 (1.003-1.030) 06/01/21 Unknown Urine Protein 100 mg/dl mg/dL (Negative) 06/01/21 Unknown Urine Glucose (UA) Neg mg/dL (Negative) 06/01/21 Unknown Urine Ketones Neg mg/dL (Negative) 06/01/21 Unknown Urine Blood Lg (Negative) 06/01/21 Unknown Urine Nitrite Neg (Negative) 06/01/21 Unknown Urine Bilirubin Neg (Negative) 06/01/21 Unknown Urine Urobilinogen < 2.0 mg/dL (<2.0) 06/01/21 Unknown Ur Leukocyte Esterase Mod (Negative) 06/01/21 Unknown Urine WBC (Auto) > 182.0 /HPF (0.0-6.0) H 06/01/21 Unknown Urine RBC (Auto) 174.0 /HPF (0.0-6.0) 06/01/21 Unknown U Epithel Cells (Auto) 32.0 /HPF (0-13.0) H 06/01/21 Unknown Urine Bacteria (Auto) 4+ /HPF (Negative) 06/01/21 Unknown Urine WBC Clumps 3+ /HPF 06/01/21 Unknown Urine Yeast (Budding) 3+ /HPF 06/01/21 Unknown Urine Creatinine 105.1 mg/dL (0.1-20.0) H 06/03/21 13:26 Urine Sodium 39 mmol/L 06/03/21 13:26 Urine Total Protein 28 mg/dL (5-11.8) H 06/03/21 13:26 Microbiology: Microbiology 06/02/21 Unknown Urine,Catheterized - Straight Catheter Urine Culture - Preliminary Angela Albicans 06/01/21 23:50 Peripheral/Venous Blood Culture - Preliminary NO GROWTH AFTER 24 HOURS 06/01/21 23:59 Peripheral/Venous Blood Culture - Preliminary NO GROWTH AFTER 24 HOURS Fitzpatrick/IV: Voiding Method Indwelling Catheter Active Medications - Current Medications Current Medications: Generic Name Dose Route Start Last Admin Trade Name Freq PRN Reason Stop Dose Admin Acetaminophen 650 mg 06/02/21 00:31 Acetaminophen 325 Mg Tab PO Q4H PRN Pain MILD(1-3)/Fever >100.5/GUEVARA Albuterol 2.5 mg 06/02/21 00:34 Albuterol 2.5 Mg/3 Ml Nebu IH Q3HRT PRN Shortness Of Breath Docusate Sodium 100 mg 06/02/21 10:00 06/03/21 12:21 Docusate Sodium 100 Mg Cap PO 100 mg BID KRISTIN Administration Heparin Sodium (Porcine) 5,000 unit 06/02/21 10:00 06/03/21 12:21 Heparin 5,000 Unit/1 Ml Vial SUB-Q 5,000 unit Q12HR KRISTIN Administration Ceftriaxone Sodium 1 gm in 50 mls @ 100 mls/hr 06/02/21 22:00 06/03/21 00:19 Rocephin/Ns 1 Gm/50 Ml IV 100 mls/hr Q24H KRISTIN Administration Protocol Levetiracetam 500 mg/ Dextrose 105 mls @ 400 mls/hr 06/02/21 10:00 06/03/21 12:33 IV 400 mls/hr Q12HR KRISTIN Administration Dextrose/Sodium Chloride 1,000 mls @ 75 mls/hr 06/03/21 10:00 06/03/21 12:34 D5/0.45ns IV 75 mls/hr DIRECT KRISTIN Administration Levothyroxine Sodium 75 mcg 06/02/21 06:00 06/03/21 05:57 Levothyroxine 75 Mcg Tab PO 75 mcg DAILY@0600 KRISTIN Administration Naloxone HCl 0.1 mg 06/02/21 00:35 Naloxone 0.4 Mg/1 Ml Inj IV Q2MIN PRN Res Rate </= 8 or 02 SAT < 92% Ondansetron HCl 4 mg 06/02/21 00:31 Ondansetron 4 Mg/2 Ml Inj IV Q6H PRN Nausea And Vomiting Oxycodone/Acetaminophen 1 tab 06/02/21 00:35 Oxycodone /Acetaminophen 5-325mg Tab PO Q6H PRN Pain, Moderate (4-6) Pantoprazole Sodium 40 mg 06/02/21 10:00 06/03/21 12:33 Pantoprazole 40 Mg Inj IV 40 mg QDAY KRISTIN Administration Sodium Bicarbonate 1,300 mg 06/02/21 18:00 06/03/21 12:21 Sodium Bicarbonate 650 Mg Tab PO 1,300 mg BID KRISTIN Administration Sodium Chloride 10 ml 06/02/21 10:00 06/03/21 12:35 Sodium Chloride 0.9% 10 Ml Flush Syringe IV 10 ml BID KRISTIN Administration Sodium Chloride 10 ml 06/02/21 00:31 Sodium Chloride 0.9% 10 Ml Flush Syringe IV PRN PRN LINE FLUSH Nutrition/Malnutrition Assess - Dietary Evaluation Nutrition/Malnutrition Findings: Nutrition Notes Start: 06/02/21 10:10 Freq: Status: Active Protocol: Document 06/03/21 12:37 SG (Rec: 06/03/21 12:43 SG [id number]) Nutrition Notes Need for Assessment generated from: MD Order Initial or Follow up Brief Note Current Diagnosis Acute Kidney Injury,Stroke Other Pertinent Diagnosis seizure, cirrhosis, liver mass , metastatic carinoma, anemia, debility, UTI Current Diet cardiac Labs/Tests K 5.1 Subjective/Other Information MD consult for skin risk assessment. Shola score 19 per ADL assessment note. Pt and nurse not resposponding to phone calls Nutrition Intervention Follow-Up By: 06/04/21 Additional Comments f/u /intake
[2021-06-04] MEDS: levETIRAcetam 500 MG in DEXTROSE 5% IN WATER 100 ML IV SCH ×3 (01:28→21:13)
[2021-06-04] MEDS: ACETAMINOPHEN 325 MG TAB PO PRN (01:29)
[2021-06-04] MEDS: cefTRIAXone/NS 1 GM/50 ML 1 GM/50 ML BAG IV SCH ×2 (01:58→22:05)
[2021-06-04] MEDS: LEVOTHYROXINE 75 MCG TAB PO SCH (06:23)
[2021-06-04] MEDS: D5W/0.45% NACL 1,000 ML IV SCH ×2 (07:32→20:52)
[2021-06-04 07:58] LABS: Calcium 9.3 mg/dL (8.4-10.2)
[2021-06-04] MEDS: oxyCODONE /ACETAMINOPHEN 5-325MG TAB PO PRN (09:35)
[2021-06-04] MEDS: DOCUSATE SODIUM 100 MG CAP PO SCH ×2 (10:05→21:16)
[2021-06-04] MEDS: HEPARIN 5,000 UNIT/1 ML VIAL SUB-Q SCH ×2 (10:05→21:14)
[2021-06-04] MEDS: PANTOPRAZOLE 40 MG INJ IV SCH (10:05)
[2021-06-04] MEDS: SODIUM BICARBONATE 650 MG TAB PO SCH ×2 (10:05→21:16)
--- NOTE | 2021-06-04 17:48 | Progress Note ---
Assessment and Plan - Patient Problems (1) MITCH (acute kidney injury) Current Visit: Yes Status: Acute Plan to address problem: acute kidney injury is most likely secondary to pre-renal azotemia in the setting of acute cystitis. renal function improving on IVF, cont D5 1/2NS at 75m/hr, avoid nephrotoxins, NSAIDs, IV contrast. K improved with medical t reatment. will monitor lytes/renal parameters closely and make further recommendations. (2) Hyperkalemia Current Visit: Yes Status: Acute Plan to address problem: K improved s/p medical treatment, cont 2g K renal diet (3) Metabolic acidosis Current Visit: Yes Status: Acute Plan to address problem: cont sodium bicarb 1300mg bid (4) Urinary tract infection Current Visit: Yes Status: Acute Plan to address problem: cont ABXs treatment with ceftriaxone, no dose adjustment needed Subjective Date of service: 06/04/21 Principal diagnosis: MITCH Interval history: Pt awake, alert, in no acute distress, plan for renal US this AM Objective - Vital Signs Vital signs: Vital Signs - 12hr 06/04/21 06/04/21 06/04/21 08:53 10:00 11:12 Temperature 97.8 F 98.5 F Pulse Rate 48 L 47 L 47 L Respiratory 18 18 Rate Blood Pressure 119/50 127/50 O2 Sat by Pulse 100 100 100 Oximetry 06/04/21 17:20 Temperature 98.7 F Pulse Rate 51 L Respiratory 18 Rate Blood Pressure 136/55 O2 Sat by Pulse 99 Oximetry - General Appearance General appearance: well-developed, well-nourished, appears stated age EENT: ATNC, PERRL, mucous membranes moist Neck: no JVD Respiratory: Present: Clear to Ascultation Cardiology: regular, S1S2 Gastrointestinal: normoactive bowel sounds Integumentary: no rash, other Neurologic: no focal deficit, alert and oriented x3, strength 5/5, CN 3-12 intact Psychiatric: mood/affect appropriate, cooperative - Lab 06/03/21 04:22 06/04/21 04:28 Most recent lab results Calcium 9.3 mg/dL (8.4-10.2) 06/04/21 04:28 Magnesium 2.60 mg/dL (1.7-2.3) H 06/03/21 04:22 Urine Creatinine 105.1 mg/dL (0.1-20.0) H 06/03/21 13:26 Urine Sodium 39 mmol/L 06/03/21 13:26 Urine Total Protein 28 mg/dL (5-11.8) H 06/03/21 13:26 Medications & Allergies - Medications Allergies/Adverse Reactions: Allergies No Known Allergies Allergy (Unverified 04/15/21 08:22) Home Medications: Home Medications Medication Instructions Recorded Confirmed Last Taken Type Gabapentin 100 mg PO BID 11/28/16 04/01/21 04/14/21 History levETIRAcetam [Keppra TAB] 500 mg PO BID 11/28/16 04/15/21 04/14/21 21:00 History Torsemide [Demadex] 10 mg PO QDAY 12/26/20 04/01/21 04/14/21 History Pantoprazole [Protonix TAB] 20 mg PO QDAY tablet. 12/29/20 04/01/21 04/14/21 Rx Rifaximin [Xifaxan] 550 mg PO BID tablet 12/29/20 04/01/21 04/14/21 Rx oxyCODONE /ACETAMINOPHEN [Percocet 1 tab PO Q6H PRN #10 tablet 12/29/20 04/01/21 04/14/21 Rx 5/325 mg] Active Medications: Generic Name Dose Route Start Last Admin Trade Name Ryanq PRN Reason Stop Dose Admin Acetaminophen 650 mg 06/02/21 00:31 06/04/21 01:29 Acetaminophen 325 Mg Tab PO 650 mg Q4H PRN Administration Pain MILD(1-3)/Fever >100.5/UGEVARA Albuterol 2.5 mg 06/02/21 00:34 Albuterol 2.5 Mg/3 Ml Nebu IH Q3HRT PRN Shortness Of Breath Docusate Sodium 100 mg 06/02/21 10:00 06/04/21 10:05 Docusate Sodium 100 Mg Cap PO 100 mg BID KRISTIN Administration Heparin Sodium (Porcine) 5,000 unit 06/02/21 10:00 06/04/21 10:05 Heparin 5,000 Unit/1 Ml Vial SUB-Q 5,000 unit Q12HR KRISTIN Administration Ceftriaxone Sodium 1 gm in 50 mls @ 100 mls/hr 06/02/21 22:00 06/04/21 01:58 Rocephin/Ns 1 Gm/50 Ml IV 100 mls/hr Q24H KRISTIN Administration Protocol Levetiracetam 500 mg/ Dextrose 105 mls @ 400 mls/hr 06/02/21 10:00 06/04/21 10:05 IV 400 mls/hr Q12HR KRISTIN Administration Dextrose/Sodium Chloride 1,000 mls @ 75 mls/hr 06/03/21 10:00 06/04/21 07:32 D5/0.45ns IV 75 mls/hr DIRECT KRISTIN Administration Levothyroxine Sodium 75 mcg 06/02/21 06:00 06/04/21 06:23 Levothyroxine 75 Mcg Tab PO 75 mcg DAILY@0600 KRISTNI Administration Naloxone HCl 0.1 mg 06/02/21 00:35 Naloxone 0.4 Mg/1 Ml Inj IV Q2MIN PRN Res Rate </= 8 or 02 SAT < 92% Ondansetron HCl 4 mg 06/02/21 00:31 Ondansetron 4 Mg/2 Ml Inj IV Q6H PRN Nausea And Vomiting Oxycodone/Acetaminophen 1 tab 06/02/21 00:35 06/04/21 09:35 Oxycodone /Acetaminophen 5-325mg Tab PO 1 tab Q6H PRN Administration Pain, Moderate (4-6) Pantoprazole Sodium 40 mg 06/02/21 10:00 06/04/21 10:05 Pantoprazole 40 Mg Inj IV 40 mg QDAY KRISTIN Administration Sodium Bicarbonate 1,300 mg 06/02/21 18:00 06/04/21 10:05 Sodium Bicarbonate 650 Mg Tab PO 1,300 mg BID KRISTIN Administration Sodium Chloride 10 ml 06/02/21 10:00 06/04/21 10:05 Sodium Chloride 0.9% 10 Ml Flush Syringe IV 10 ml BID KRISTIN Administration Sodium Chloride 10 ml 06/02/21 00:31 Sodium Chloride 0.9% 10 Ml Flush Syringe IV PRN PRN LINE FLUSH
--- NOTE | 2021-06-04 19:17 | Progress Note ---
Assessment and Plan Assessment and plan: --Urinary tract infection Continue empiric antibiotics Follow cultures, plenty of oral fluids IV fluids as needed --Acute metabolic encephalopathy -CT head negative for acute abnormalities Multifactorial, dementia, probably UTI Treat the underlying cause, supportive care --Hyperkalemia; on admission 6.2 Resolved, patient received treatment Closely monitor electrolytes --Acute kidney injury ; present on admission Vasomotor nephropathy Gentle hydration, monitor renal function, avoid nephrotoxin Creatinine trending down Nephrology following --Elevated troponin/non-ST elevation LA type II No cardiac symptoms like chest pain or shortness of breath Cardiac enzymes trending down Consider cardiology evaluation if needed --Moderate malnutrition/hypoalbuminemia Albumin 3.0, nutrition supplements, supportive care Nutrition consult if needed --History of hypothyroidism Continue Synthroid 75 mcg daily --History of thrombocytopenia Closely monitor --History of liver mass/metastatic disease Outpatient follow-up with hematology oncology --History of stroke ; with residual weakness PT OT, possible home with home health on discharge --History of seizure; Seizure precautions, continue Keppra --DVT and GI PPx -On Protonix and heparin[caution thrombocytopenia] 06/03/2021: Patient is doing well. She is afebrile without acute GI symptoms. Patient denies dysuria abdominal pain lateral flank pain. MITCH is improving with IV fluids. Nephrology is following. 06/04/2021: Patient is doing well. MITCH progressively improving with IV fluids. Nephrology is following. Urine cultures grew yeast. Will discontinue Rocephin and start on Diflucan. Hopefully discharge soon with resolution of MITCH. History Interval history: Patient has no complaints. MITCH is improving progressively with IV fluids. Patient denies dysuria, abdominal pain or flank pain. No fever or chills. No chest pains or dyspnea. Urine cultures positive for yeast. Hospitalist Physical - Constitutional Vitals: Temp Pulse Resp BP Pulse Ox 96.4 F L 53 L 18 132/64 100 06/04/21 18:30 06/04/21 18:30 06/04/21 18:30 06/04/21 18:30 06/04/21 18:30 General appearance: Present: no acute distress, well-nourished - EENT Eyes: Present: PERRL ENT: clear oral mucosa - Neck Neck: Present: supple. Absent: masses or JVD - Respiratory Respiratory effort: normal Respiratory: bilateral: CTA - Cardiovascular Rhythm: regular - Extremities Extremity abnormal: other (Trace pretibial edema) - Abdominal General gastrointestinal: soft, non-tender, normal bowel sounds - Integumentary Integumentary: Absent: rash - Psychiatric Psychiatric: appropriate mood/affect - Neurologic Neurologic: no focal deficits HEART Score - HEART Score Troponin: Troponin T 0.029 ng/mL (0.00-0.029) 06/02/21 05:53 Results - Labs CBC & Chem 7: 06/03/21 04:22 06/04/21 04:28 Labs: Laboratory Last Values WBC 4.1 K/mm3 (4.5-11.0) L 06/03/21 04:22 RBC 3.03 M/mm3 (3.65-5.03) L 06/03/21 04:22 Hgb 9.0 gm/dl (10.1-14.3) L 06/03/21 04:22 Hct 27.2 % (30.3-42.9) L 06/03/21 04:22 MCV 90 fl (79-97) 06/03/21 04:22 MCH 30 pg (28-32) 06/03/21 04:22 MCHC 33 % (30-34) 06/03/21 04:22 RDW 16.5 % (13.2-15.2) H 06/03/21 04:22 Plt Count 106 K/mm3 (140-440) L 06/03/21 04:22 Lymph % (Auto) 32.2 % (13.4-35.0) 06/01/21 20:38 [place] % (Auto) Scientific Writer 06/03/21 04:22 Eos % (Auto) 1.1 % (0.0-4.3) 06/01/21 20:38 Baso % (Auto) 0.3 % (0.0-1.8) 06/01/21 20:38 Lymph # (Auto) 2.2 K/mm3 (1.2-5.4) 06/01/21 20:38 [place] # (Auto) 0.9 K/mm3 (0.0-0.8) H 06/01/21 20:38 Eos # (Auto) 0.1 K/mm3 (0.0-0.4) 06/01/21 20:38 Baso # (Auto) 0.0 K/mm3 (0.0-0.1) 06/01/21 20:38 Add Manual Diff Complete 06/03/21 04:22 Total Counted 100 06/03/21 04:22 Seg Neutrophils % 53.2 % (40.0-70.0) 06/01/21 20:38 Seg Neuts % (Manual) 66.0 % (40.0-70.0) 06/03/21 04:22 Lymphocytes % (Manual) 22.0 % (13.4-35.0) 06/03/21 04:22 Reactive Lymphs % (Man) 1.0 % 06/03/21 04:22 Monocytes % (Manual) 6.0 % (0.0-7.3) 06/03/21 04:22 Eosinophils % (Manual) 4.0 % (0.0-4.3) 06/03/21 04:22 Basophils % (Manual) 1.0 % (0.0-1.8) 06/03/21 04:22 Nucleated RBC % Not Reportable 06/03/21 04:22 Seg Neutrophils # 3.6 K/mm3 (1.8-7.7) 06/01/21 20:38 Seg Neutrophils # Man 2.7 K/mm3 (1.8-7.7) 06/03/21 04:22 Band Neutrophils # 0.0 K/mm3 06/03/21 04:22 Lymphocytes # (Manual) 0.9 K/mm3 (1.2-5.4) L 06/03/21 04:22 Abs React Lymphs (Man) 0.0 K/mm3 06/03/21 04:22 Monocytes # (Manual) 0.2 K/mm3 (0.0-0.8) 06/03/21 04:22 Eosinophils # (Manual) 0.2 K/mm3 (0.0-0.4) 06/03/21 04:22 Basophils # (Manual) 0.0 K/mm3 (0.0-0.1) 06/03/21 04:22 Metamyelocytes # 0.0 K/mm3 06/03/21 04:22 Myelocytes # 0.0 K/mm3 06/03/21 04:22 Promyelocytes # 0.0 K/mm3 06/03/21 04:22 Blast Cells # 0.0 K/mm3 06/03/21 04:22 WBC Morphology Not Reportable 06/03/21 04:22 Hypersegmented Neuts Not Reportable 06/03/21 04:22 Hyposegmented Neuts Not Reportable 06/03/21 04:22 Hypogranular Neuts Not Reportable 06/03/21 04:22 Smudge Cells Not Reportable 06/03/21 04:22 Toxic Granulation Not Reportable 06/03/21 04:22 Toxic Vacuolation Not Reportable 06/03/21 04:22 Dohle Bodies Not Reportable 06/03/21 04:22 Pelger-Huet Anomaly Not Reportable 06/03/21 04:22 Wilmer Rods Not Reportable 06/03/21 04:22 Platelet Estimate Consistent w auto 06/03/21 04:22 Clumped Platelets Not Reportable 06/03/21 04:22 Plt Clumps, EDTA Not Reportable 06/03/21 04:22 Large Platelets Not Reportable 06/03/21 04:22 Giant Platelets Not Reportable 06/03/21 04:22 Platelet Satelliting Not Reportable 06/03/21 04:22 Plt Morphology Comment Not Reportable 06/03/21 04:22 RBC Morphology Not Reportable 06/03/21 04:22 Dimorphic RBCs Not Reportable 06/03/21 04:22 Polychromasia Not Reportable 06/03/21 04:22 Hypochromasia Few 06/03/21 04:22 Poikilocytosis Not Reportable 06/03/21 04:22 Anisocytosis 1+ 06/03/21 04:22 Microcytosis Not Reportable 06/03/21 04:22 Macrocytosis Not Reportable 06/03/21 04:22 Spherocytes Not Reportable 06/03/21 04:22 Pappenheimer Bodies Not Reportable 06/03/21 04:22 Sickle Cells Not Reportable 06/03/21 04:22 Target Cells Not Reportable 06/03/21 04:22 Tear Drop Cells Not Reportable 06/03/21 04:22 Ovalocytes Few 06/03/21 04:22 Helmet Cells Not Reportable 06/03/21 04:22 [place] Bodies Not Reportable 06/03/21 04:22 [place] Rings Not Reportable 06/03/21 04:22 Greg Cells Not Reportable 06/03/21 04:22 Bite Cells Not Reportable 06/03/21 04:22 Crenated Cell Not Reportable 06/03/21 04:22 Elliptocytes Not Reportable 06/03/21 04:22 Acanthocytes (Spur) Not Reportable 06/03/21 04:22 Rouleaux Not Reportable 06/03/21 04:22 Hemoglobin C Crystals Not Reportable 06/03/21 04:22 Schistocytes Not Reportable 06/03/21 04:22 Malaria parasites Not Reportable 06/03/21 04:22 Al Bodies Not Reportable 06/03/21 04:22 Hem Pathologist Commnt No 06/03/21 04:22 PT 15.4 Sec. (12.2-14.9) H 06/01/21 20:38 INR 1.16 (0.87-1.13) H 06/01/21 20:38 Sodium 141 mmol/L (137-145) 06/04/21 04:28 Potassium 4.7 mmol/L (3.6-5.0) 06/04/21 04:28 Chloride 111.6 mmol/L (98-107) H 06/04/21 04:28 Carbon Dioxide 21 mmol/L (22-30) L 06/04/21 04:28 Anion Gap 13 mmol/L 06/04/21 04:28 BUN 52 mg/dL (7-17) H 06/04/21 04:28 Creatinine 2.0 mg/dL (0.6-1.2) H 06/04/21 04:28 Estimated GFR 29 ml/min 06/04/21 04:28 BUN/Creatinine Ratio 26 % 06/04/21 04:28 Glucose 86 mg/dL (65-100) 06/04/21 04:28 POC Glucose 89 mg/dL (70-105) 06/02/21 03:01 Lactic Acid 1.10 mmol/L (0.7-2.0) 06/01/21 23:59 Calcium 9.3 mg/dL (8.4-10.2) 06/04/21 04:28 Magnesium 2.60 mg/dL (1.7-2.3) H 06/03/21 04:22 Total Bilirubin 0.50 mg/dL (0.1-1.2) 06/03/21 04:22 AST 25 units/L (5-40) 06/03/21 04:22 ALT 13 units/L (7-56) 06/03/21 04:22 Alkaline Phosphatase 73 units/L (35-129) 06/03/21 04:22 Ammonia 31.0 umol/L (25-60) 06/01/21 20:38 Total Creatine Kinase 41 units/L (30-135) 06/01/21 20:38 Troponin T 0.029 ng/mL (0.00-0.029) 06/02/21 05:53 Total Protein 7.4 g/dL (6.3-8.2) 06/03/21 04:22 Albumin 2.6 g/dL (3.9-5) L 06/03/21 04:22 Albumin/Globulin Ratio 0.5 % 06/03/21 04:22 Triglycerides 64 mg/dL (2-149) 06/01/21 20:38 Cholesterol 95 mg/dL (50-199) 06/01/21 20:38 LDL Cholesterol Direct 50 mg/dL (50-130) 06/01/21 20:38 HDL Cholesterol 34 mg/dL (40-59) L 06/01/21 20:38 Cholesterol/HDL Ratio 2.79 % 06/01/21 20:38 TSH 0.230 mlU/mL (0.270-4.200) L 06/01/21 20:38 Free T4 1.43 ng/dL (0.76-1.46) 06/02/21 01:04 Thyroxine (T4) 10.4 ug/dL (4.0-12.0) 06/02/21 01:04 Urine Color Yellow (Yellow) 06/01/21 Unknown Urine Turbidity Turbid (Clear) 06/01/21 Unknown Urine pH 5.0 (5.0-7.0) 06/01/21 Unknown Ur Specific [place] 1.013 (1.003-1.030) 06/01/21 Unknown Urine Protein 100 mg/dl mg/dL (Negative) 06/01/21 Unknown Urine Glucose (UA) Neg mg/dL (Negative) 06/01/21 Unknown Urine Ketones Neg mg/dL (Negative) 06/01/21 Unknown Urine Blood Lg (Negative) 06/01/21 Unknown Urine Nitrite Neg (Negative) 06/01/21 Unknown Urine Bilirubin Neg (Negative) 06/01/21 Unknown Urine Urobilinogen < 2.0 mg/dL (<2.0) 06/01/21 Unknown Ur Leukocyte Esterase Mod (Negative) 06/01/21 Unknown Urine WBC (Auto) > 182.0 /HPF (0.0-6.0) H 06/01/21 Unknown Urine RBC (Auto) 174.0 /HPF (0.0-6.0) 06/01/21 Unknown U Epithel Cells (Auto) 32.0 /HPF (0-13.0) H 06/01/21 Unknown Urine Bacteria (Auto) 4+ /HPF (Negative) 06/01/21 Unknown Urine WBC Clumps 3+ /HPF 06/01/21 Unknown Urine Yeast (Budding) 3+ /HPF 06/01/21 Unknown Urine Creatinine 105.1 mg/dL (0.1-20.0) H 06/03/21 13:26 Urine Sodium 39 mmol/L 06/03/21 13:26 Urine Total Protein 28 mg/dL (5-11.8) H 06/03/21 13:26 Microbiology: Microbiology 06/02/21 Unknown Urine,Catheterized - Straight Catheter Urine Culture - Final Angela Albicans 06/01/21 23:50 Peripheral/Venous Blood Culture - Preliminary NO GROWTH AFTER 48 HOURS 06/01/21 23:59 Peripheral/Venous Blood Culture - Preliminary NO GROWTH AFTER 48 HOURS Fitzpatrick/IV: Voiding Method Bedpan Active Medications - Current Medications Current Medications: Generic Name Dose Route Start Last Admin Trade Name Freq PRN Reason Stop Dose Admin Acetaminophen 650 mg 06/02/21 00:31 06/04/21 01:29 Acetaminophen 325 Mg Tab PO 650 mg Q4H PRN Administration Pain MILD(1-3)/Fever >100.5/GUEVARA Albuterol 2.5 mg 06/02/21 00:34 Albuterol 2.5 Mg/3 Ml Nebu IH Q3HRT PRN Shortness Of Breath Docusate Sodium 100 mg 06/02/21 10:00 06/04/21 10:05 Docusate Sodium 100 Mg Cap PO 100 mg BID KRISTIN Administration Heparin Sodium (Porcine) 5,000 unit 06/02/21 10:00 06/04/21 10:05 Heparin 5,000 Unit/1 Ml Vial SUB-Q 5,000 unit Q12HR KRISTIN Administration Ceftriaxone Sodium 1 gm in 50 mls @ 100 mls/hr 06/02/21 22:00 06/04/21 01:58 Rocephin/Ns 1 Gm/50 Ml IV 100 mls/hr Q24H KRISTIN Administration Protocol Levetiracetam 500 mg/ Dextrose 105 mls @ 400 mls/hr 06/02/21 10:00 06/04/21 10:05 IV 400 mls/hr Q12HR KRISTIN Administration Dextrose/Sodium Chloride 1,000 mls @ 75 mls/hr 06/03/21 10:00 06/04/21 07:32 D5/0.45ns IV 75 mls/hr DIRECT KRISTIN Administration Levothyroxine Sodium 75 mcg 06/02/21 06:00 06/04/21 06:23 Levothyroxine 75 Mcg Tab PO 75 mcg DAILY@0600 KRISTIN Administration Naloxone HCl 0.1 mg 06/02/21 00:35 Naloxone 0.4 Mg/1 Ml Inj IV Q2MIN PRN Res Rate </= 8 or 02 SAT < 92% Ondansetron HCl 4 mg 06/02/21 00:31 Ondansetron 4 Mg/2 Ml Inj IV Q6H PRN Nausea And Vomiting Oxycodone/Acetaminophen 1 tab 06/02/21 00:35 06/04/21 09:35 Oxycodone /Acetaminophen 5-325mg Tab PO 1 tab Q6H PRN Administration Pain, Moderate (4-6) Pantoprazole Sodium 40 mg 06/02/21 10:00 06/04/21 10:05 Pantoprazole 40 Mg Inj IV 40 mg QDAY KRISTIN Administration Sodium Bicarbonate 1,300 mg 06/02/21 18:00 06/04/21 10:05 Sodium Bicarbonate 650 Mg Tab PO 1,300 mg BID KRISTIN Administration Sodium Chloride 10 ml 06/02/21 10:00 06/04/21 10:05 Sodium Chloride 0.9% 10 Ml Flush Syringe IV 10 ml BID KRISTIN Administration Sodium Chloride 10 ml 06/02/21 00:31 Sodium Chloride 0.9% 10 Ml Flush Syringe IV PRN PRN LINE FLUSH Nutrition/Malnutrition Assess - Dietary Evaluation Nutrition/Malnutrition Findings: Nutrition Notes Start: 06/02/21 10:10 Freq: Status: Active Protocol: Document 06/04/21 16:47 MK (Rec: 06/04/21 16:47 MK [id number]) Nutrition Notes Initial or Follow up Brief Note Current Diagnosis Acute Kidney Injury,Stroke Other Pertinent Diagnosis seizure, cirrhosis, liver mass , metastatic carinoma, anemia, debility, UTI Current Diet cardiac Subjective/Other Information 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 Nutrition Intervention Follow-Up By: 06/06/21 Additional Comments F/u: intakes
[2021-06-05] MEDS: LEVOTHYROXINE 75 MCG TAB PO SCH (06:11)
--- NOTE | 2021-06-05 09:26 | Progress Note ---
Assessment and Plan - Patient Problems (1) MITCH (acute kidney injury) Current Visit: Yes Status: Acute Plan to address problem: acute kidney injury is most likely secondary to pre-renal azotemia in the setting of acute cystitis. renal function improving on IVF, cont D5 1/2NS at 75m/hr, avoid nephrotoxins, NSAIDs, IV contrast. K improved with medical t reatment. will monitor lytes/renal parameters closely and make further recommendations. (2) Hyperkalemia Current Visit: Yes Status: Acute Plan to address problem: K improved s/p medical treatment, cont 2g K renal diet (3) Metabolic acidosis Current Visit: Yes Status: Acute Plan to address problem: cont sodium bicarb 1300mg bid (4) Urinary tract infection Current Visit: Yes Status: Acute Plan to address problem: Urine Cx was positive for aide albicans, cont treatment with diflucan Subjective Date of service: 06/05/21 Principal diagnosis: MITCH Interval history: Pt awake, alert, in no acute distress. Denies CP, SOB, fever, chills, n/v/d, dysuria Objective - Vital Signs Vital signs: Vital Signs - 12hr 06/04/21 06/05/21 06/05/21 23:08 03:52 09:05 Temperature 98.3 F 96.2 F L 97.4 F L Pulse Rate 53 L 56 L 60 Respiratory 18 18 20 Rate Blood Pressure 128/61 143/64 161/67 O2 Sat by Pulse 100 99 97 Oximetry - General Appearance General appearance: well-developed, well-nourished, appears stated age EENT: ATNC, PERRL, mucous membranes moist Neck: no JVD Respiratory: Present: Clear to Ascultation Cardiology: regular, S1S2 Gastrointestinal: normoactive bowel sounds Integumentary: no rash Neurologic: no focal deficit, alert and oriented x3, strength 5/5, CN 3-12 intact Psychiatric: mood/affect appropriate, cooperative - Lab 06/03/21 04:22 06/04/21 04:28 Most recent lab results Calcium 9.3 mg/dL (8.4-10.2) 06/04/21 04:28 Magnesium 2.60 mg/dL (1.7-2.3) H 06/03/21 04:22 Urine Creatinine 105.1 mg/dL (0.1-20.0) H 06/03/21 13:26 Urine Sodium 39 mmol/L 06/03/21 13:26 Urine Total Protein 28 mg/dL (5-11.8) H 06/03/21 13:26 Medications & Allergies - Medications Allergies/Adverse Reactions: Allergies No Known Allergies Allergy (Unverified 04/15/21 08:22) Home Medications: Home Medications Medication Instructions Recorded Confirmed Last Taken Type Gabapentin 100 mg PO BID 11/28/16 04/01/21 04/14/21 History levETIRAcetam [Keppra TAB] 500 mg PO BID 11/28/16 04/15/21 04/14/21 21:00 History Torsemide [Demadex] 10 mg PO QDAY 12/26/20 04/01/21 04/14/21 History Pantoprazole [Protonix TAB] 20 mg PO QDAY tablet. 12/29/20 04/01/21 04/14/21 Rx Rifaximin [Xifaxan] 550 mg PO BID tablet 12/29/20 04/01/21 04/14/21 Rx oxyCODONE /ACETAMINOPHEN [Percocet 1 tab PO Q6H PRN #10 tablet 12/29/20 04/01/21 04/14/21 Rx 5/325 mg] Active Medications: Generic Name Dose Route Start Last Admin Trade Name [place] PRN Reason Stop Dose Admin Acetaminophen 650 mg 06/02/21 00:31 06/04/21 01:29 Acetaminophen 325 Mg Tab PO 650 mg Q4H PRN Administration Pain MILD(1-3)/Fever >100.5/GUEVARA Albuterol 2.5 mg 06/02/21 00:34 Albuterol 2.5 Mg/3 Ml Nebu IH Q3HRT PRN Shortness Of Breath Docusate Sodium 100 mg 06/02/21 10:00 06/04/21 21:16 Docusate Sodium 100 Mg Cap PO 100 mg BID KRISTIN Administration Fluconazole 100 mg 06/05/21 10:00 Fluconazole 100 Mg Tab PO QDAY KRISTIN Protocol Heparin Sodium (Porcine) 5,000 unit 06/02/21 10:00 06/04/21 21:14 Heparin 5,000 Unit/1 Ml Vial SUB-Q 5,000 unit Q12HR KRISTIN Administration Levetiracetam 500 mg/ Dextrose 105 mls @ 400 mls/hr 06/02/21 10:00 06/04/21 21:13 IV 400 mls/hr Q12HR KRISTIN Administration Dextrose/Sodium Chloride 1,000 mls @ 75 mls/hr 06/03/21 10:00 06/04/21 20:52 D5/0.45ns IV 75 mls/hr DIRECT KRISTIN Administration Levothyroxine Sodium 75 mcg 06/02/21 06:00 06/05/21 06:11 Levothyroxine 75 Mcg Tab PO 75 mcg DAILY@0600 KRISTIN Administration Naloxone HCl 0.1 mg 06/02/21 00:35 Naloxone 0.4 Mg/1 Ml Inj IV Q2MIN PRN Res Rate </= 8 or 02 SAT < 92% Ondansetron HCl 4 mg 06/02/21 00:31 Ondansetron 4 Mg/2 Ml Inj IV Q6H PRN Nausea And Vomiting Oxycodone/Acetaminophen 1 tab 06/02/21 00:35 06/04/21 09:35 Oxycodone /Acetaminophen 5-325mg Tab PO 1 tab Q6H PRN Administration Pain, Moderate (4-6) Pantoprazole Sodium 40 mg 06/02/21 10:00 06/04/21 10:05 Pantoprazole 40 Mg Inj IV 40 mg QDAY KRISTIN Administration Sodium Bicarbonate 1,300 mg 06/02/21 18:00 06/04/21 21:16 Sodium Bicarbonate 650 Mg Tab PO 1,300 mg BID KRISTIN Administration Sodium Chloride 10 ml 06/02/21 10:00 06/04/21 21:17 Sodium Chloride 0.9% 10 Ml Flush Syringe IV 10 ml BID KRISTIN Administration Sodium Chloride 10 ml 06/02/21 00:31 Sodium Chloride 0.9% 10 Ml Flush Syringe IV PRN PRN LINE FLUSH
[2021-06-05] MEDS: levETIRAcetam 500 MG in DEXTROSE 5% IN WATER 100 ML IV SCH ×2 (09:32→21:33)
[2021-06-05] MEDS: PANTOPRAZOLE 40 MG INJ IV SCH (09:32)
[2021-06-05] MEDS: HEPARIN 5,000 UNIT/1 ML VIAL SUB-Q SCH ×2 (09:32→21:33)
[2021-06-05] MEDS: SODIUM BICARBONATE 650 MG TAB PO SCH ×2 (09:32→21:33)
[2021-06-05] MEDS: DOCUSATE SODIUM 100 MG CAP PO SCH ×2 (09:32→21:33)
[2021-06-05] MEDS: ACETAMINOPHEN 325 MG TAB PO PRN (09:46)
[2021-06-05] MEDS: D5W/0.45% NACL 1,000 ML IV SCH (09:47)
[2021-06-05] MEDS: FLUCONAZOLE 100 MG TAB PO SCH (09:54)
--- NOTE | 2021-06-05 20:16 | Progress Note ---
Assessment and Plan Assessment and plan: --Urinary tract infection Continue empiric antibiotics Follow cultures, plenty of oral fluids IV fluids as needed --Acute metabolic encephalopathy -CT head negative for acute abnormalities Multifactorial, dementia, probably UTI Treat the underlying cause, supportive care --Hyperkalemia; on admission 6.2 Resolved, patient received treatment Closely monitor electrolytes --Acute kidney injury ; present on admission Vasomotor nephropathy Gentle hydration, monitor renal function, avoid nephrotoxin Creatinine trending down Nephrology following --Elevated troponin/non-ST elevation LA type II No cardiac symptoms like chest pain or shortness of breath Cardiac enzymes trending down Consider cardiology evaluation if needed --Moderate malnutrition/hypoalbuminemia Albumin 3.0, nutrition supplements, supportive care Nutrition consult if needed --History of hypothyroidism Continue Synthroid 75 mcg daily --History of thrombocytopenia Closely monitor --History of liver mass/metastatic disease Outpatient follow-up with hematology oncology --History of stroke ; with residual weakness PT OT, possible home with home health on discharge --History of seizure; Seizure precautions, continue Keppra --DVT and GI PPx -On Protonix and heparin[caution thrombocytopenia] 06/03/2021: Patient is doing well. She is afebrile without acute GI symptoms. Patient denies dysuria abdominal pain lateral flank pain. MITCH is improving with IV fluids. Nephrology is following. 06/04/2021: Patient is doing well. MITCH progressively improving with IV fluids. Nephrology is following. Urine cultures grew yeast. Will discontinue Rocephin and start on Diflucan. Hopefully discharge soon with resolution of MITCH. 06/05/2021 ; significant improvement of renal function, creatinine today is 2.0 PT recommended subacute versus acute rehab placement DC planning per case management History Interval history: Seen and examined the patient at the bedside Chart and medications reviewedPatient feels slightly better No new complaints Hospitalist Physical - Constitutional Vitals: Temp Pulse Resp BP Pulse Ox 97.4 F L 65 16 144/69 99 06/05/21 20:06 06/05/21 20:01 06/05/21 20:01 06/05/21 20:01 06/05/21 20:01 General appearance: Present: no acute distress, well-nourished - EENT Eyes: Present: PERRL, EOM intact - Neck Neck: Present: supple, normal ROM - Respiratory Respiratory effort: normal Respiratory: bilateral: diminished, negative: rales, rhonchi, wheezing - Cardiovascular Rhythm: regular Heart Sounds: Present: S1 & S2 - Extremities Extremities: no ischemia, No edema - Abdominal General gastrointestinal: soft, non-tender, non-distended, normal bowel sounds - Integumentary Integumentary: Present: clear, warm - Psychiatric Psychiatric: cooperative, other - Neurologic Neurologic: moves all extremities (Minimally communicative) HEART Score - HEART Score Troponin: Troponin T 0.029 ng/mL (0.00-0.029) 06/02/21 05:53 Results - Labs CBC & Chem 7: 06/03/21 04:22 06/04/21 04:28 Labs: Laboratory Last Values WBC 4.1 K/mm3 (4.5-11.0) L 06/03/21 04:22 RBC 3.03 M/mm3 (3.65-5.03) L 06/03/21 04:22 Hgb 9.0 gm/dl (10.1-14.3) L 06/03/21 04:22 Hct 27.2 % (30.3-42.9) L 06/03/21 04:22 MCV 90 fl (79-97) 06/03/21 04:22 MCH 30 pg (28-32) 06/03/21 04:22 MCHC 33 % (30-34) 06/03/21 04:22 RDW 16.5 % (13.2-15.2) H 06/03/21 04:22 Plt Count 106 K/mm3 (140-440) L 06/03/21 04:22 Lymph % (Auto) 32.2 % (13.4-35.0) 06/01/21 20:38 [place] % (Auto) Consulting Sales Manager 06/03/21 04:22 Eos % (Auto) 1.1 % (0.0-4.3) 06/01/21 20:38 Baso % (Auto) 0.3 % (0.0-1.8) 06/01/21 20:38 Lymph # (Auto) 2.2 K/mm3 (1.2-5.4) 06/01/21 20:38 [place] # (Auto) 0.9 K/mm3 (0.0-0.8) H 06/01/21 20:38 Eos # (Auto) 0.1 K/mm3 (0.0-0.4) 06/01/21 20:38 Baso # (Auto) 0.0 K/mm3 (0.0-0.1) 06/01/21 20:38 Add Manual Diff Complete 06/03/21 04:22 Total Counted 100 06/03/21 04:22 Seg Neutrophils % 53.2 % (40.0-70.0) 06/01/21 20:38 Seg Neuts % (Manual) 66.0 % (40.0-70.0) 06/03/21 04:22 Lymphocytes % (Manual) 22.0 % (13.4-35.0) 06/03/21 04:22 Reactive Lymphs % (Man) 1.0 % 06/03/21 04:22 Monocytes % (Manual) 6.0 % (0.0-7.3) 06/03/21 04:22 Eosinophils % (Manual) 4.0 % (0.0-4.3) 06/03/21 04:22 Basophils % (Manual) 1.0 % (0.0-1.8) 06/03/21 04:22 Nucleated RBC % Not Reportable 06/03/21 04:22 Seg Neutrophils # 3.6 K/mm3 (1.8-7.7) 06/01/21 20:38 Seg Neutrophils # Man 2.7 K/mm3 (1.8-7.7) 06/03/21 04:22 Band Neutrophils # 0.0 K/mm3 06/03/21 04:22 Lymphocytes # (Manual) 0.9 K/mm3 (1.2-5.4) L 06/03/21 04:22 Abs React Lymphs (Man) 0.0 K/mm3 06/03/21 04:22 Monocytes # (Manual) 0.2 K/mm3 (0.0-0.8) 06/03/21 04:22 Eosinophils # (Manual) 0.2 K/mm3 (0.0-0.4) 06/03/21 04:22 Basophils # (Manual) 0.0 K/mm3 (0.0-0.1) 06/03/21 04:22 Metamyelocytes # 0.0 K/mm3 06/03/21 04:22 Myelocytes # 0.0 K/mm3 06/03/21 04:22 Promyelocytes # 0.0 K/mm3 06/03/21 04:22 Blast Cells # 0.0 K/mm3 06/03/21 04:22 WBC Morphology Not Reportable 06/03/21 04:22 Hypersegmented Neuts Not Reportable 06/03/21 04:22 Hyposegmented Neuts Not Reportable 06/03/21 04:22 Hypogranular Neuts Not Reportable 06/03/21 04:22 Smudge Cells Not Reportable 06/03/21 04:22 Toxic Granulation Not Reportable 06/03/21 04:22 Toxic Vacuolation Not Reportable 06/03/21 04:22 Dohle Bodies Not Reportable 06/03/21 04:22 Pelger-Huet Anomaly Not Reportable 06/03/21 04:22 Wilmer Rods Not Reportable 06/03/21 04:22 Platelet Estimate Consistent w auto 06/03/21 04:22 Clumped Platelets Not Reportable 06/03/21 04:22 Plt Clumps, EDTA Not Reportable 06/03/21 04:22 Large Platelets Not Reportable 06/03/21 04:22 Giant Platelets Not Reportable 06/03/21 04:22 Platelet Satelliting Not Reportable 06/03/21 04:22 Plt Morphology Comment Not Reportable 06/03/21 04:22 RBC Morphology Not Reportable 06/03/21 04:22 Dimorphic RBCs Not Reportable 06/03/21 04:22 Polychromasia Not Reportable 06/03/21 04:22 Hypochromasia Few 06/03/21 04:22 Poikilocytosis Not Reportable 06/03/21 04:22 Anisocytosis 1+ 06/03/21 04:22 Microcytosis Not Reportable 06/03/21 04:22 Macrocytosis Not Reportable 06/03/21 04:22 Spherocytes Not Reportable 06/03/21 04:22 Pappenheimer Bodies Not Reportable 06/03/21 04:22 Sickle Cells Not Reportable 06/03/21 04:22 Target Cells Not Reportable 06/03/21 04:22 Tear Drop Cells Not Reportable 06/03/21 04:22 Ovalocytes Few 06/03/21 04:22 Helmet Cells Not Reportable 06/03/21 04:22 Brown-Orrin Bodies Not Reportable 06/03/21 04:22 [place] Rings Not Reportable 06/03/21 04:22 Greg Cells Not Reportable 06/03/21 04:22 Bite Cells Not Reportable 06/03/21 04:22 Crenated Cell Not Reportable 06/03/21 04:22 Elliptocytes Not Reportable 06/03/21 04:22 Acanthocytes (Spur) Not Reportable 06/03/21 04:22 Rouleaux Not Reportable 06/03/21 04:22 Hemoglobin C Crystals Not Reportable 06/03/21 04:22 Schistocytes Not Reportable 06/03/21 04:22 Malaria parasites Not Reportable 06/03/21 04:22 Al Bodies Not Reportable 06/03/21 04:22 Hem Pathologist Commnt No 06/03/21 04:22 PT 15.4 Sec. (12.2-14.9) H 06/01/21 20:38 INR 1.16 (0.87-1.13) H 06/01/21 20:38 Sodium 141 mmol/L (137-145) 06/04/21 04:28 Potassium 4.7 mmol/L (3.6-5.0) 06/04/21 04:28 Chloride 111.6 mmol/L (98-107) H 06/04/21 04:28 Carbon Dioxide 21 mmol/L (22-30) L 06/04/21 04:28 Anion Gap 13 mmol/L 06/04/21 04:28 BUN 52 mg/dL (7-17) H 06/04/21 04:28 Creatinine 2.0 mg/dL (0.6-1.2) H 06/04/21 04:28 Estimated GFR 29 ml/min 06/04/21 04:28 BUN/Creatinine Ratio 26 % 06/04/21 04:28 Glucose 86 mg/dL (65-100) 06/04/21 04:28 POC Glucose 89 mg/dL (70-105) 06/02/21 03:01 Lactic Acid 1.10 mmol/L (0.7-2.0) 06/01/21 23:59 Calcium 9.3 mg/dL (8.4-10.2) 06/04/21 04:28 Magnesium 2.60 mg/dL (1.7-2.3) H 06/03/21 04:22 Total Bilirubin 0.50 mg/dL (0.1-1.2) 06/03/21 04:22 AST 25 units/L (5-40) 06/03/21 04:22 ALT 13 units/L (7-56) 06/03/21 04:22 Alkaline Phosphatase 73 units/L (35-129) 06/03/21 04:22 Ammonia 31.0 umol/L (25-60) 06/01/21 20:38 Total Creatine Kinase 41 units/L (30-135) 06/01/21 20:38 Troponin T 0.029 ng/mL (0.00-0.029) 06/02/21 05:53 Total Protein 7.4 g/dL (6.3-8.2) 06/03/21 04:22 Albumin 2.6 g/dL (3.9-5) L 06/03/21 04:22 Albumin/Globulin Ratio 0.5 % 06/03/21 04:22 Triglycerides 64 mg/dL (2-149) 06/01/21 20:38 Cholesterol 95 mg/dL (50-199) 06/01/21 20:38 LDL Cholesterol Direct 50 mg/dL (50-130) 06/01/21 20:38 HDL Cholesterol 34 mg/dL (40-59) L 06/01/21 20:38 Cholesterol/HDL Ratio 2.79 % 06/01/21 20:38 TSH 0.230 mlU/mL (0.270-4.200) L 06/01/21 20:38 Free T4 1.43 ng/dL (0.76-1.46) 06/02/21 01:04 Thyroxine (T4) 10.4 ug/dL (4.0-12.0) 06/02/21 01:04 Urine Color Yellow (Yellow) 06/01/21 Unknown Urine Turbidity Turbid (Clear) 06/01/21 Unknown Urine pH 5.0 (5.0-7.0) 06/01/21 Unknown Ur Specific [place] 1.013 (1.003-1.030) 06/01/21 Unknown Urine Protein 100 mg/dl mg/dL (Negative) 06/01/21 Unknown Urine Glucose (UA) Neg mg/dL (Negative) 06/01/21 Unknown Urine Ketones Neg mg/dL (Negative) 06/01/21 Unknown Urine Blood Lg (Negative) 06/01/21 Unknown Urine Nitrite Neg (Negative) 06/01/21 Unknown Urine Bilirubin Neg (Negative) 06/01/21 Unknown Urine Urobilinogen < 2.0 mg/dL (<2.0) 06/01/21 Unknown Ur Leukocyte Esterase Mod (Negative) 06/01/21 Unknown Urine WBC (Auto) > 182.0 /HPF (0.0-6.0) H 06/01/21 Unknown Urine RBC (Auto) 174.0 /HPF (0.0-6.0) 06/01/21 Unknown U Epithel Cells (Auto) 32.0 /HPF (0-13.0) H 06/01/21 Unknown Urine Bacteria (Auto) 4+ /HPF (Negative) 06/01/21 Unknown Urine WBC Clumps 3+ /HPF 06/01/21 Unknown Urine Yeast (Budding) 3+ /HPF 06/01/21 Unknown Urine Creatinine 105.1 mg/dL (0.1-20.0) H 06/03/21 13:26 Urine Sodium 39 mmol/L 06/03/21 13:26 Urine Total Protein 28 mg/dL (5-11.8) H 06/03/21 13:26 Microbiology: Microbiology 06/01/21 23:50 Peripheral/Venous Blood Culture - Preliminary NO GROWTH AFTER 72 HOURS 06/01/21 23:59 Peripheral/Venous Blood Culture - Preliminary NO GROWTH AFTER 72 HOURS 06/02/21 Unknown Urine,Catheterized - Straight Catheter Urine Culture - Final Angela Albicans Fitzpatrick/IV: Voiding Method Indwelling Catheter Active Medications - Current Medications Current Medications: Generic Name Dose Route Start Last Admin Trade Name Freq PRN Reason Stop Dose Admin Acetaminophen 650 mg 06/02/21 00:31 06/05/21 09:46 Acetaminophen 325 Mg Tab PO 650 mg Q4H PRN Administration Pain MILD(1-3)/Fever >100.5/GUEVARA Albuterol 2.5 mg 06/02/21 00:34 Albuterol 2.5 Mg/3 Ml Nebu IH Q3HRT PRN Shortness Of Breath Docusate Sodium 100 mg 06/02/21 10:00 06/05/21 09:32 Docusate Sodium 100 Mg Cap PO 100 mg BID KRISTIN Administration Fluconazole 100 mg 06/05/21 10:00 06/05/21 09:54 Fluconazole 100 Mg Tab PO 06/11/21 10:01 100 mg QDAY KRISTIN Administration Protocol Heparin Sodium (Porcine) 5,000 unit 06/02/21 10:00 06/05/21 09:32 Heparin 5,000 Unit/1 Ml Vial SUB-Q 5,000 unit Q12HR KRISTIN Administration Levetiracetam 500 mg/ Dextrose 105 mls @ 400 mls/hr 06/02/21 10:00 06/05/21 09:32 IV 400 mls/hr Q12HR KRISTIN Administration Dextrose/Sodium Chloride 1,000 mls @ 75 mls/hr 06/03/21 10:00 06/05/21 09:47 D5/0.45ns IV 75 mls/hr DIRECT KRISTIN Administration Levothyroxine Sodium 75 mcg 06/02/21 06:00 06/05/21 06:11 Levothyroxine 75 Mcg Tab PO 75 mcg DAILY@0600 KRISTIN Administration Naloxone HCl 0.1 mg 06/02/21 00:35 Naloxone 0.4 Mg/1 Ml Inj IV Q2MIN PRN Res Rate </= 8 or 02 SAT < 92% Ondansetron HCl 4 mg 06/02/21 00:31 Ondansetron 4 Mg/2 Ml Inj IV Q6H PRN Nausea And Vomiting Oxycodone/Acetaminophen 1 tab 06/02/21 00:35 06/04/21 09:35 Oxycodone /Acetaminophen 5-325mg Tab PO 1 tab Q6H PRN Administration Pain, Moderate (4-6) Pantoprazole Sodium 40 mg 06/02/21 10:00 06/05/21 09:32 Pantoprazole 40 Mg Inj IV 40 mg QDAY KRISTIN Administration Sodium Bicarbonate 1,300 mg 06/02/21 18:00 06/05/21 09:32 Sodium Bicarbonate 650 Mg Tab PO 1,300 mg BID KRISTIN Administration Sodium Chloride 10 ml 06/02/21 10:00 06/05/21 09:32 Sodium Chloride 0.9% 10 Ml Flush Syringe IV 10 ml BID KRISTIN Administration Sodium Chloride 10 ml 06/02/21 00:31 Sodium Chloride 0.9% 10 Ml Flush Syringe IV PRN PRN LINE FLUSH Nutrition/Malnutrition Assess - Dietary Evaluation Nutrition/Malnutrition Findings: Nutrition Notes Start: 06/02/21 10:10 Freq: Status: Active Protocol: Document 06/04/21 16:47 MK (Rec: 06/04/21 16:47 [id number]) Nutrition Notes Initial or Follow up Brief Note Current Diagnosis Acute Kidney Injury,Stroke Other Pertinent Diagnosis seizure, cirrhosis, liver mass , metastatic carinoma, anemia, debility, UTI Current Diet cardiac Subjective/Other Information 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 No intakes in chart. Nutrition Intervention Follow-Up By: 06/06/21 Additional Comments F/u: intakes
[2021-06-06] MEDS: LEVOTHYROXINE 75 MCG TAB PO SCH (05:13)
[2021-06-06] MEDS: D5W/0.45% NACL 1,000 ML IV SCH ×2 (06:47→22:21)
[2021-06-06] MEDS: SODIUM BICARBONATE 650 MG TAB PO SCH ×2 (10:21→22:09)
[2021-06-06] MEDS: FLUCONAZOLE 100 MG TAB PO SCH (10:21)
[2021-06-06] MEDS: HEPARIN 5,000 UNIT/1 ML VIAL SUB-Q SCH ×2 (10:21→22:12)
[2021-06-06] MEDS: PANTOPRAZOLE 40 MG INJ IV SCH (10:21)
[2021-06-06] MEDS: levETIRAcetam 500 MG in DEXTROSE 5% IN WATER 100 ML IV SCH ×2 (10:21→22:15)
[2021-06-06] MEDS: DOCUSATE SODIUM 100 MG CAP PO SCH ×2 (10:21→22:09)
--- NOTE | 2021-06-06 10:45 | Progress Note ---
Assessment and Plan - Patient Problems (1) MITCH (acute kidney injury) Current Visit: Yes Status: Acute Plan to address problem: Renal function showing steady improvement with IVF hydration and treatment of UTI. Will monitor closely. (2) Metabolic acidosis Current Visit: Yes Status: Acute Plan to address problem: Continue current sodium bicarbonate supplementation. (3) Hyperkalemia Current Visit: Yes Status: Acute Plan to address problem: In the setting of MITCH. Showing improvement. (4) Urinary tract infection Current Visit: Yes Status: Acute Plan to address problem: Evidence of aide growth notes in urine culture, continues on diflucan therapy. Subjective Date of service: 06/06/21 Principal diagnosis: MITCH Interval history: No acute changes, labs reviewed. Objective - Vital Signs Vital signs: Vital Signs - 12hr 06/05/21 06/06/21 06/06/21 23:43 04:03 04:10 Temperature 97.4 F L 98.4 F Pulse Rate 66 62 68 Respiratory 18 20 Rate Blood Pressure 163/66 Blood Pressure 153/6 [Left] O2 Sat by Pulse 100 100 Oximetry 06/06/21 08:01 Temperature 98.0 F Pulse Rate 71 Respiratory 20 Rate Blood Pressure 132/53 Blood Pressure [Left] O2 Sat by Pulse 97 Oximetry - General Appearance General appearance: appears stated age EENT: ATNC Neck: no JVD, no thyromegaly Respiratory: Present: Clear to Ascultation Cardiology: regular Gastrointestinal: normal Integumentary: no rash Neurologic: no focal deficit Musculoskeletal: deferred Psychiatric: cooperative - Lab 06/03/21 04:22 06/04/21 04:28 Most recent lab results Calcium 9.3 mg/dL (8.4-10.2) 06/04/21 04:28 Magnesium 2.60 mg/dL (1.7-2.3) H 06/03/21 04:22 Urine Creatinine 105.1 mg/dL (0.1-20.0) H 06/03/21 13:26 Urine Sodium 39 mmol/L 06/03/21 13:26 Urine Total Protein 28 mg/dL (5-11.8) H 06/03/21 13:26 - Allied health notes Allied health notes reviewed: nursing Medications & Allergies - Medications Allergies/Adverse Reactions: Allergies No Known Allergies Allergy (Unverified 04/15/21 08:22) Home Medications: Home Medications Medication Instructions Recorded Confirmed Last Taken Type Gabapentin 100 mg PO BID 11/28/16 06/05/21 04/14/21 History levETIRAcetam [Keppra TAB] 500 mg PO BID 11/28/16 06/05/21 04/14/21 21:00 History Torsemide [Demadex] 10 mg PO QDAY 12/26/20 06/05/21 04/14/21 History Pantoprazole [Protonix TAB] 20 mg PO QDAY tablet. 12/29/20 06/05/21 04/14/21 Rx Rifaximin [Xifaxan] 550 mg PO BID tablet 12/29/20 06/05/21 04/14/21 Rx oxyCODONE /ACETAMINOPHEN [Percocet 1 tab PO Q6H PRN #10 tablet 12/29/20 06/05/21 04/14/21 Rx 5/325 mg] Active Medications: Generic Name Dose Route Start Last Admin Trade Name Freq PRN Reason Stop Dose Admin Acetaminophen 650 mg 06/02/21 00:31 06/05/21 09:46 Acetaminophen 325 Mg Tab PO 650 mg Q4H PRN Administration Pain MILD(1-3)/Fever >100.5/GUEVARA Albuterol 2.5 mg 06/02/21 00:34 Albuterol 2.5 Mg/3 Ml Nebu IH Q3HRT PRN Shortness Of Breath Docusate Sodium 100 mg 06/02/21 10:00 06/06/21 10:21 Docusate Sodium 100 Mg Cap PO 100 mg BID KRISTIN Administration Fluconazole 100 mg 06/05/21 10:00 06/06/21 10:21 Fluconazole 100 Mg Tab PO 06/11/21 10:01 100 mg QDAY KRISTIN Administration Protocol Heparin Sodium (Porcine) 5,000 unit 06/02/21 10:00 06/06/21 10:21 Heparin 5,000 Unit/1 Ml Vial SUB-Q 5,000 unit Q12HR KRISTIN Administration Levetiracetam 500 mg/ Dextrose 105 mls @ 400 mls/hr 06/02/21 10:00 06/06/21 10:21 IV 400 mls/hr Q12HR KRISTIN Administration Dextrose/Sodium Chloride 1,000 mls @ 75 mls/hr 06/03/21 10:00 06/06/21 06:47 D5/0.45ns IV 75 mls/hr DIRECT KRISTIN Administration Levothyroxine Sodium 75 mcg 06/02/21 06:00 06/06/21 05:13 Levothyroxine 75 Mcg Tab PO 75 mcg DAILY@0600 KRISTIN Administration Naloxone HCl 0.1 mg 06/02/21 00:35 Naloxone 0.4 Mg/1 Ml Inj IV Q2MIN PRN Res Rate </= 8 or 02 SAT < 92% Ondansetron HCl 4 mg 06/02/21 00:31 Ondansetron 4 Mg/2 Ml Inj IV Q6H PRN Nausea And Vomiting Oxycodone/Acetaminophen 1 tab 06/02/21 00:35 06/04/21 09:35 Oxycodone /Acetaminophen 5-325mg Tab PO 1 tab Q6H PRN Administration Pain, Moderate (4-6) Pantoprazole Sodium 40 mg 06/02/21 10:00 06/06/21 10:21 Pantoprazole 40 Mg Inj IV 40 mg QDAY KRISTIN Administration Sodium Bicarbonate 1,300 mg 06/02/21 18:00 06/06/21 10:21 Sodium Bicarbonate 650 Mg Tab PO 1,300 mg BID KRISTIN Administration Sodium Chloride 10 ml 06/02/21 10:00 06/06/21 10:21 Sodium Chloride 0.9% 10 Ml Flush Syringe IV 10 ml BID KRISTIN Administration Sodium Chloride 10 ml 06/02/21 00:31 Sodium Chloride 0.9% 10 Ml Flush Syringe IV PRN PRN LINE FLUSH
--- NOTE | 2021-06-06 12:37 | Progress Note ---
Assessment and Plan Assessment and plan: --Urinary tract infection Angela in urine, Continue Diflucan for total 7 days --Acute metabolic encephalopathy -CT head negative for acute abnormalities Multifactorial, dementia, probably UTI Treat the underlying cause, supportive care --Hyperkalemia; on admission 6.2 Resolved, patient received treatment Closely monitor electrolytes --Acute kidney injury ; present on admission Vasomotor nephropathy Gentle hydration, monitor renal function, avoid nephrotoxin Creatinine trending down Nephrology following --Elevated troponin/non-ST elevation [place] type II No cardiac symptoms like chest pain or shortness of breath Cardiac enzymes trending down Consider cardiology evaluation if needed --Moderate malnutrition/hypoalbuminemia Albumin 3.0, nutrition supplements, supportive care Nutrition consult if needed --History of hypothyroidism Continue Synthroid 75 mcg daily --History of thrombocytopenia Closely monitor --History of liver mass/metastatic disease Outpatient follow-up with hematology oncology --History of stroke ; with residual weakness PT OT, possible home with home health on discharge --History of seizure; Seizure precautions, continue Keppra --DVT and GI PPx -On Protonix and heparin[caution thrombocytopenia] Significant improvement of renal function, creatinine today is 2.0 Nephrology following PT recommended subacute versus acute rehab placement DC planning per case management Daily hospital course: 06/03/2021: Patient is doing well. She is afebrile without acute GI symptoms. Patient denies dysuria abdominal pain lateral flank pain. MITCH is improving with IV fluids. Nephrology is following. 06/04/2021: Patient is doing well. MITCH progressively improving with IV fluids. Nephrology is following. Urine cultures grew yeast. Will discontinue Rocephin and start on Diflucan. Hopefully discharge soon with resolution of MITCH. 06/05/2021 : significant improvement of renal function, creatinine today is 2.0 Nephrology following PT recommended subacute versus acute rehab placement DC planning per case management 06/06/2021; Urine cultures positive for Angela Patient is on Diflucan DC planning per case management Subacute versus acute rehab placement History Interval history: I have seen and examined the patient at the bedside Patient's chart and medications reviewed Patient feels slightly better No new complaints Hospitalist Physical - Constitutional Vitals: Temp Pulse Resp BP Pulse Ox 98.0 F 66 18 155/58 96 06/06/21 11:00 06/06/21 12:21 06/06/21 11:00 06/06/21 11:00 06/06/21 12:00 General appearance: Present: no acute distress, well-nourished - EENT Eyes: Present: PERRL, EOM intact - Neck Neck: Present: supple, normal ROM - Respiratory Respiratory effort: normal Respiratory: bilateral: diminished, rhonchi, negative: rales, wheezing - Cardiovascular Rhythm: regular Heart Sounds: Present: S1 & S2 - Extremities Extremities: no ischemia, No edema - Abdominal General gastrointestinal: soft, non-tender, non-distended, normal bowel sounds - Integumentary Integumentary: Present: clear, warm - Psychiatric Psychiatric: appropriate mood/affect, cooperative - Neurologic Neurologic: CNII-XII intact, moves all extremities HEART Score - HEART Score Troponin: Troponin T 0.029 ng/mL (0.00-0.029) 06/02/21 05:53 Results - Labs CBC & Chem 7: 06/03/21 04:22 06/04/21 04:28 Labs: Laboratory Last Values WBC 4.1 K/mm3 (4.5-11.0) L 06/03/21 04:22 RBC 3.03 M/mm3 (3.65-5.03) L 06/03/21 04:22 Hgb 9.0 gm/dl (10.1-14.3) L 06/03/21 04:22 Hct 27.2 % (30.3-42.9) L 06/03/21 04:22 MCV 90 fl (79-97) 06/03/21 04:22 MCH 30 pg (28-32) 06/03/21 04:22 MCHC 33 % (30-34) 06/03/21 04:22 RDW 16.5 % (13.2-15.2) H 06/03/21 04:22 Plt Count 106 K/mm3 (140-440) L 06/03/21 04:22 Lymph % (Auto) 32.2 % (13.4-35.0) 06/01/21 20:38 Stokes % (Auto) Reproduction Technician 06/03/21 04:22 Eos % (Auto) 1.1 % (0.0-4.3) 06/01/21 20:38 Baso % (Auto) 0.3 % (0.0-1.8) 06/01/21 20:38 Lymph # (Auto) 2.2 K/mm3 (1.2-5.4) 06/01/21 20:38 Stokes # (Auto) 0.9 K/mm3 (0.0-0.8) H 06/01/21 20:38 Eos # (Auto) 0.1 K/mm3 (0.0-0.4) 06/01/21 20:38 Baso # (Auto) 0.0 K/mm3 (0.0-0.1) 06/01/21 20:38 Add Manual Diff Complete 06/03/21 04:22 Total Counted 100 06/03/21 04:22 Seg Neutrophils % 53.2 % (40.0-70.0) 06/01/21 20:38 Seg Neuts % (Manual) 66.0 % (40.0-70.0) 06/03/21 04:22 Lymphocytes % (Manual) 22.0 % (13.4-35.0) 06/03/21 04:22 Reactive Lymphs % (Man) 1.0 % 06/03/21 04:22 Monocytes % (Manual) 6.0 % (0.0-7.3) 06/03/21 04:22 Eosinophils % (Manual) 4.0 % (0.0-4.3) 06/03/21 04:22 Basophils % (Manual) 1.0 % (0.0-1.8) 06/03/21 04:22 Nucleated RBC % Not Reportable 06/03/21 04:22 Seg Neutrophils # 3.6 K/mm3 (1.8-7.7) 06/01/21 20:38 Seg Neutrophils # Man 2.7 K/mm3 (1.8-7.7) 06/03/21 04:22 Band Neutrophils # 0.0 K/mm3 06/03/21 04:22 Lymphocytes # (Manual) 0.9 K/mm3 (1.2-5.4) L 06/03/21 04:22 Abs React Lymphs (Man) 0.0 K/mm3 06/03/21 04:22 Monocytes # (Manual) 0.2 K/mm3 (0.0-0.8) 06/03/21 04:22 Eosinophils # (Manual) 0.2 K/mm3 (0.0-0.4) 06/03/21 04:22 Basophils # (Manual) 0.0 K/mm3 (0.0-0.1) 06/03/21 04:22 Metamyelocytes # 0.0 K/mm3 06/03/21 04:22 Myelocytes # 0.0 K/mm3 06/03/21 04:22 Promyelocytes # 0.0 K/mm3 06/03/21 04:22 Blast Cells # 0.0 K/mm3 06/03/21 04:22 WBC Morphology Not Reportable 06/03/21 04:22 Hypersegmented Neuts Not Reportable 06/03/21 04:22 Hyposegmented Neuts Not Reportable 06/03/21 04:22 Hypogranular Neuts Not Reportable 06/03/21 04:22 Smudge Cells Not Reportable 06/03/21 04:22 Toxic Granulation Not Reportable 06/03/21 04:22 Toxic Vacuolation Not Reportable 06/03/21 04:22 Dohle Bodies Not Reportable 06/03/21 04:22 Pelger-Huet Anomaly Not Reportable 06/03/21 04:22 Wilmer Rods Not Reportable 06/03/21 04:22 Platelet Estimate Consistent w auto 06/03/21 04:22 Clumped Platelets Not Reportable 06/03/21 04:22 Plt Clumps, EDTA Not Reportable 06/03/21 04:22 Large Platelets Not Reportable 06/03/21 04:22 Giant Platelets Not Reportable 06/03/21 04:22 Platelet Satelliting Not Reportable 06/03/21 04:22 Plt Morphology Comment Not Reportable 06/03/21 04:22 RBC Morphology Not Reportable 06/03/21 04:22 Dimorphic RBCs Not Reportable 06/03/21 04:22 Polychromasia Not Reportable 06/03/21 04:22 Hypochromasia Few 06/03/21 04:22 Poikilocytosis Not Reportable 06/03/21 04:22 Anisocytosis 1+ 06/03/21 04:22 Microcytosis Not Reportable 06/03/21 04:22 Macrocytosis Not Reportable 06/03/21 04:22 Spherocytes Not Reportable 06/03/21 04:22 Pappenheimer Bodies Not Reportable 06/03/21 04:22 Sickle Cells Not Reportable 06/03/21 04:22 Target Cells Not Reportable 06/03/21 04:22 Tear Drop Cells Not Reportable 06/03/21 04:22 Ovalocytes Few 06/03/21 04:22 Helmet Cells Not Reportable 06/03/21 04:22 Brown-Mchenry Bodies Not Reportable 06/03/21 04:22 Groom Rings Not Reportable 06/03/21 04:22 Greg Cells Not Reportable 06/03/21 04:22 Bite Cells Not Reportable 06/03/21 04:22 Crenated Cell Not Reportable 06/03/21 04:22 Elliptocytes Not Reportable 06/03/21 04:22 Acanthocytes (Spur) Not Reportable 06/03/21 04:22 Rouleaux Not Reportable 06/03/21 04:22 Hemoglobin C Crystals Not Reportable 06/03/21 04:22 Schistocytes Not Reportable 06/03/21 04:22 Malaria parasites Not Reportable 06/03/21 04:22 Al Bodies Not Reportable 06/03/21 04:22 Hem Pathologist Commnt No 06/03/21 04:22 PT 15.4 Sec. (12.2-14.9) H 06/01/21 20:38 INR 1.16 (0.87-1.13) H 06/01/21 20:38 Sodium 141 mmol/L (137-145) 06/04/21 04:28 Potassium 4.7 mmol/L (3.6-5.0) 06/04/21 04:28 Chloride 111.6 mmol/L (98-107) H 06/04/21 04:28 Carbon Dioxide 21 mmol/L (22-30) L 06/04/21 04:28 Anion Gap 13 mmol/L 06/04/21 04:28 BUN 52 mg/dL (7-17) H 06/04/21 04:28 Creatinine 2.0 mg/dL (0.6-1.2) H 06/04/21 04:28 Estimated GFR 29 ml/min 06/04/21 04:28 BUN/Creatinine Ratio 26 % 06/04/21 04:28 Glucose 86 mg/dL (65-100) 06/04/21 04:28 POC Glucose 89 mg/dL (70-105) 06/02/21 03:01 Lactic Acid 1.10 mmol/L (0.7-2.0) 06/01/21 23:59 Calcium 9.3 mg/dL (8.4-10.2) 06/04/21 04:28 Magnesium 2.60 mg/dL (1.7-2.3) H 06/03/21 04:22 Total Bilirubin 0.50 mg/dL (0.1-1.2) 06/03/21 04:22 AST 25 units/L (5-40) 06/03/21 04:22 ALT 13 units/L (7-56) 06/03/21 04:22 Alkaline Phosphatase 73 units/L (35-129) 06/03/21 04:22 Ammonia 31.0 umol/L (25-60) 06/01/21 20:38 Total Creatine Kinase 41 units/L (30-135) 06/01/21 20:38 Troponin T 0.029 ng/mL (0.00-0.029) 06/02/21 05:53 Total Protein 7.4 g/dL (6.3-8.2) 06/03/21 04:22 Albumin 2.6 g/dL (3.9-5) L 06/03/21 04:22 Albumin/Globulin Ratio 0.5 % 06/03/21 04:22 Triglycerides 64 mg/dL (2-149) 06/01/21 20:38 Cholesterol 95 mg/dL (50-199) 06/01/21 20:38 LDL Cholesterol Direct 50 mg/dL (50-130) 06/01/21 20:38 HDL Cholesterol 34 mg/dL (40-59) L 06/01/21 20:38 Cholesterol/HDL Ratio 2.79 % 06/01/21 20:38 TSH 0.230 mlU/mL (0.270-4.200) L 06/01/21 20:38 Free T4 1.43 ng/dL (0.76-1.46) 06/02/21 01:04 Thyroxine (T4) 10.4 ug/dL (4.0-12.0) 06/02/21 01:04 Urine Color Yellow (Yellow) 06/01/21 Unknown Urine Turbidity Turbid (Clear) 06/01/21 Unknown Urine pH 5.0 (5.0-7.0) 06/01/21 Unknown Ur Specific Webb 1.013 (1.003-1.030) 06/01/21 Unknown Urine Protein 100 mg/dl mg/dL (Negative) 06/01/21 Unknown Urine Glucose (UA) Neg mg/dL (Negative) 06/01/21 Unknown Urine Ketones Neg mg/dL (Negative) 06/01/21 Unknown Urine Blood Lg (Negative) 06/01/21 Unknown Urine Nitrite Neg (Negative) 06/01/21 Unknown Urine Bilirubin Neg (Negative) 06/01/21 Unknown Urine Urobilinogen < 2.0 mg/dL (<2.0) 06/01/21 Unknown Ur Leukocyte Esterase Mod (Negative) 06/01/21 Unknown Urine WBC (Auto) > 182.0 /HPF (0.0-6.0) H 06/01/21 Unknown Urine RBC (Auto) 174.0 /HPF (0.0-6.0) 06/01/21 Unknown U Epithel Cells (Auto) 32.0 /HPF (0-13.0) H 06/01/21 Unknown Urine Bacteria (Auto) 4+ /HPF (Negative) 06/01/21 Unknown Urine WBC Clumps 3+ /HPF 06/01/21 Unknown Urine Yeast (Budding) 3+ /HPF 06/01/21 Unknown Urine Creatinine 105.1 mg/dL (0.1-20.0) H 06/03/21 13:26 Urine Sodium 39 mmol/L 06/03/21 13:26 Urine Total Protein 28 mg/dL (5-11.8) H 06/03/21 13:26 Microbiology: Microbiology 06/01/21 23:50 Peripheral/Venous Blood Culture - Preliminary NO GROWTH AFTER 4 DAYS 06/01/21 23:59 Peripheral/Venous Blood Culture - Preliminary NO GROWTH AFTER 4 DAYS Fitzpatrick/IV: Voiding Method Indwelling Catheter Active Medications - Current Medications Current Medications: Generic Name Dose Route Start Last Admin Trade Name Freq PRN Reason Stop Dose Admin Acetaminophen 650 mg 06/02/21 00:31 06/05/21 09:46 Acetaminophen 325 Mg Tab PO 650 mg Q4H PRN Administration Pain MILD(1-3)/Fever >100.5/GUEVAAR Albuterol 2.5 mg 06/02/21 00:34 Albuterol 2.5 Mg/3 Ml Nebu IH Q3HRT PRN Shortness Of Breath Docusate Sodium 100 mg 06/02/21 10:00 06/06/21 10:21 Docusate Sodium 100 Mg Cap PO 100 mg BID KRISTIN Administration Fluconazole 100 mg 06/05/21 10:00 06/06/21 10:21 Fluconazole 100 Mg Tab PO 06/11/21 10:01 100 mg QDAY KRISTIN Administration Protocol Heparin Sodium (Porcine) 5,000 unit 06/02/21 10:00 06/06/21 10:21 Heparin 5,000 Unit/1 Ml Vial SUB-Q 5,000 unit Q12HR KRISTIN Administration Levetiracetam 500 mg/ Dextrose 105 mls @ 400 mls/hr 06/02/21 10:00 06/06/21 10:21 IV 400 mls/hr Q12HR KRISTIN Administration Dextrose/Sodium Chloride 1,000 mls @ 75 mls/hr 06/03/21 10:00 06/06/21 06:47 D5/0.45ns IV 75 mls/hr DIRECT KRISTIN Administration Levothyroxine Sodium 75 mcg 06/02/21 06:00 06/06/21 05:13 Levothyroxine 75 Mcg Tab PO 75 mcg DAILY@0600 KRISTIN Administration Naloxone HCl 0.1 mg 06/02/21 00:35 Naloxone 0.4 Mg/1 Ml Inj IV Q2MIN PRN Res Rate </= 8 or 02 SAT < 92% Ondansetron HCl 4 mg 06/02/21 00:31 Ondansetron 4 Mg/2 Ml Inj IV Q6H PRN Nausea And Vomiting Oxycodone/Acetaminophen 1 tab 06/02/21 00:35 06/04/21 09:35 Oxycodone /Acetaminophen 5-325mg Tab PO 1 tab Q6H PRN Administration Pain, Moderate (4-6) Pantoprazole Sodium 40 mg 06/02/21 10:00 06/06/21 10:21 Pantoprazole 40 Mg Inj IV 40 mg QDAY KRISTIN Administration Sodium Bicarbonate 1,300 mg 06/02/21 18:00 06/06/21 10:21 Sodium Bicarbonate 650 Mg Tab PO 1,300 mg BID KRISTIN Administration Sodium Chloride 10 ml 06/02/21 10:00 06/06/21 10:21 Sodium Chloride 0.9% 10 Ml Flush Syringe IV 10 ml BID KRISTIN Administration Sodium Chloride 10 ml 06/02/21 00:31 Sodium Chloride 0.9% 10 Ml Flush Syringe IV PRN PRN LINE FLUSH Nutrition/Malnutrition Assess - Dietary Evaluation Nutrition/Malnutrition Findings: Nutrition Notes Start: 06/02/21 10:10 Freq: Status: Active Protocol: Document 06/04/21 16:47 MK (Rec: 06/04/21 16:47 [id number]) Nutrition Notes Initial or Follow up Brief Note Current Diagnosis Acute Kidney Injury,Stroke Other Pertinent Diagnosis seizure, cirrhosis, liver mass , metastatic carinoma, anemia, debility, UTI Current Diet cardiac Subjective/Other Information 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 No intakes in chart. Nutrition Intervention Follow-Up By: 06/06/21 Additional Comments F/u: intakes
[2021-06-07] MEDS: LEVOTHYROXINE 75 MCG TAB PO SCH (06:25)
[2021-06-07] MEDS: PANTOPRAZOLE 40 MG INJ IV SCH (10:20)
[2021-06-07] MEDS: DOCUSATE SODIUM 100 MG CAP PO SCH ×2 (10:21→22:18)
[2021-06-07] MEDS: HEPARIN 5,000 UNIT/1 ML VIAL SUB-Q SCH ×2 (10:21→22:18)
[2021-06-07] MEDS: FLUCONAZOLE 100 MG TAB PO SCH (10:21)
[2021-06-07] MEDS: SODIUM BICARBONATE 650 MG TAB PO SCH ×2 (10:21→22:18)
--- NOTE | 2021-06-07 10:36 | Progress Note ---
Assessment and Plan - Patient Problems (1) MITCH (acute kidney injury) Current Visit: Yes Status: Acute Plan to address problem: Renal function showing steady improvement with IVF hydration and treatment of UTI. Will monitor closely. (2) Metabolic acidosis Current Visit: Yes Status: Acute Plan to address problem: Continue current sodium bicarbonate supplementation. (3) Hyperkalemia Current Visit: Yes Status: Acute Plan to address problem: In the setting of MITCH. Showing improvement. (4) Urinary tract infection Current Visit: Yes Status: Acute Plan to address problem: Evidence of aide growth notes in urine culture, continues on diflucan therapy. Subjective Date of service: 06/07/21 Principal diagnosis: MITCH Interval history: No acute changes overnight. No new labs this am. Remains non-oliguric. Renal function has been showing improvement since admission. Objective - Vital Signs Vital signs: Vital Signs - 12hr 06/07/21 06/07/21 06/07/21 00:11 03:43 04:43 Temperature 98.4 F 98.9 F Pulse Rate 82 81 Respiratory 18 16 20 Rate Blood Pressure 137/50 159/62 O2 Sat by Pulse 97 97 97 Oximetry 06/07/21 07:31 Temperature 98.6 F Pulse Rate 77 Respiratory 20 Rate Blood Pressure 149/65 O2 Sat by Pulse 99 Oximetry - General Appearance General appearance: appears stated age EENT: ATNC Neck: no JVD Respiratory: Present: Clear to Ascultation Cardiology: regular Gastrointestinal: normal Integumentary: warm and dry Neurologic: no focal deficit Musculoskeletal: deferred Psychiatric: cooperative - Lab 06/03/21 04:22 06/04/21 04:28 Most recent lab results Calcium 9.3 mg/dL (8.4-10.2) 06/04/21 04:28 Magnesium 2.60 mg/dL (1.7-2.3) H 06/03/21 04:22 Urine Creatinine 105.1 mg/dL (0.1-20.0) H 06/03/21 13:26 Urine Sodium 39 mmol/L 06/03/21 13:26 Urine Total Protein 28 mg/dL (5-11.8) H 06/03/21 13:26 - Allied health notes Allied health notes reviewed: nursing Medications & Allergies - Medications Allergies/Adverse Reactions: Allergies No Known Allergies Allergy (Unverified 04/15/21 08:22) Home Medications: Home Medications Medication Instructions Recorded Confirmed Last Taken Type Gabapentin 100 mg PO BID 11/28/16 06/05/21 04/14/21 History levETIRAcetam [Keppra TAB] 500 mg PO BID 11/28/16 06/05/21 04/14/21 21:00 History Torsemide [Demadex] 10 mg PO QDAY 12/26/20 06/05/21 04/14/21 History Pantoprazole [Protonix TAB] 20 mg PO QDAY tablet. 12/29/20 06/05/21 04/14/21 Rx Rifaximin [Xifaxan] 550 mg PO BID tablet 12/29/20 06/05/21 04/14/21 Rx oxyCODONE /ACETAMINOPHEN [Percocet 1 tab PO Q6H PRN #10 tablet 12/29/20 06/05/21 04/14/21 Rx 5/325 mg] Active Medications: Generic Name Dose Route Start Last Admin Trade Name Freq PRN Reason Stop Dose Admin Acetaminophen 650 mg 06/02/21 00:31 06/05/21 09:46 Acetaminophen 325 Mg Tab PO 650 mg Q4H PRN Administration Pain MILD(1-3)/Fever >100.5/GUEVARA Albuterol 2.5 mg 06/02/21 00:34 Albuterol 2.5 Mg/3 Ml Nebu IH Q3HRT PRN Shortness Of Breath Docusate Sodium 100 mg 06/02/21 10:00 06/07/21 10:21 Docusate Sodium 100 Mg Cap PO 100 mg BID KRISTIN Administration Fluconazole 100 mg 06/05/21 10:00 06/07/21 10:21 Fluconazole 100 Mg Tab PO 06/11/21 10:01 100 mg QDAY KRISTIN Administration Protocol Heparin Sodium (Porcine) 5,000 unit 06/02/21 10:00 06/07/21 10:21 Heparin 5,000 Unit/1 Ml Vial SUB-Q 5,000 unit Q12HR KRISTIN Administration Levetiracetam 500 mg/ Dextrose 105 mls @ 400 mls/hr 06/02/21 10:00 06/06/21 22:15 IV 400 mls/hr Q12HR KRISTIN Administration Dextrose/Sodium Chloride 1,000 mls @ 75 mls/hr 06/03/21 10:00 06/06/21 22:21 D5/0.45ns IV 75 mls/hr DIRECT KRISTIN Administration Levothyroxine Sodium 75 mcg 06/02/21 06:00 06/07/21 06:25 Levothyroxine 75 Mcg Tab PO 75 mcg DAILY@0600 KRISTIN Administration Naloxone HCl 0.1 mg 06/02/21 00:35 Naloxone 0.4 Mg/1 Ml Inj IV Q2MIN PRN Res Rate </= 8 or 02 SAT < 92% Ondansetron HCl 4 mg 06/02/21 00:31 Ondansetron 4 Mg/2 Ml Inj IV Q6H PRN Nausea And Vomiting Oxycodone/Acetaminophen 1 tab 06/02/21 00:35 06/04/21 09:35 Oxycodone /Acetaminophen 5-325mg Tab PO 1 tab Q6H PRN Administration Pain, Moderate (4-6) Pantoprazole Sodium 40 mg 06/02/21 10:00 06/07/21 10:20 Pantoprazole 40 Mg Inj IV 40 mg QDAY KRISTIN Administration Sodium Bicarbonate 1,300 mg 06/02/21 18:00 06/07/21 10:21 Sodium Bicarbonate 650 Mg Tab PO 1,300 mg BID KRISTIN Administration Sodium Chloride 10 ml 06/02/21 10:00 06/07/21 10:28 Sodium Chloride 0.9% 10 Ml Flush Syringe IV 10 ml BID KRISTIN Administration Sodium Chloride 10 ml 06/02/21 00:31 Sodium Chloride 0.9% 10 Ml Flush Syringe IV PRN PRN LINE FLUSH
[2021-06-07] MEDS: levETIRAcetam 500 MG in DEXTROSE 5% IN WATER 100 ML IV SCH (11:06)
[2021-06-07] MEDS: ACETAMINOPHEN 325 MG TAB PO PRN (11:53)
[2021-06-07] MEDS: D5W/0.45% NACL 1,000 ML IV SCH (15:01)
--- NOTE | 2021-06-07 17:41 | Progress Note ---
Assessment and Plan Assessment and plan: --Urinary tract infection Angela in urine, Continue Diflucan for total 7 days --Acute metabolic encephalopathy -CT head negative for acute abnormalities Multifactorial, dementia, probably UTI Treat the underlying cause, supportive care --Hyperkalemia; on admission 6.2 Resolved, patient received treatment Closely monitor electrolytes --Acute kidney injury ; present on admission Vasomotor nephropathy Gentle hydration, monitor renal function, avoid nephrotoxin Creatinine trending down Nephrology following --Elevated troponin/non-ST elevation [place] type II No cardiac symptoms like chest pain or shortness of breath Cardiac enzymes trending down Consider cardiology evaluation if needed --Moderate malnutrition/hypoalbuminemia Albumin 3.0, nutrition supplements, supportive care Nutrition consult if needed --History of hypothyroidism Continue Synthroid 75 mcg daily --History of thrombocytopenia Closely monitor --History of liver mass/metastatic disease Outpatient follow-up with hematology oncology --History of stroke ; with residual weakness PT OT, possible home with home health on discharge --History of seizure; Seizure precautions, continue Keppra --DVT and GI PPx -On Protonix and heparin[caution thrombocytopenia] Significant improvement of renal function, creatinine today is 2.0 Nephrology following PT recommended subacute versus acute rehab placement DC planning per case management Daily hospital course: 06/03/2021: Patient is doing well. She is afebrile without acute GI symptoms. Patient denies dysuria abdominal pain lateral flank pain. MITCH is improving with IV fluids. Nephrology is following. 06/04/2021: Patient is doing well. MITCH progressively improving with IV fluids. Nephrology is following. Urine cultures grew yeast. Will discontinue Rocephin and start on Diflucan. Hopefully discharge soon with resolution of MITCH. 06/05/2021 : significant improvement of renal function, creatinine today is 2.0 Nephrology following PT recommended subacute versus acute rehab placement DC planning per case management 06/06/2021; Urine cultures positive for Angela Patient is on Diflucan DC planning per case management Subacute versus acute rehab placement 06/07/2021; Patient feels better receiving Diflucan for Angela UTI Case management assisting with placement subacute/SNF History Interval history: I seen and examined the patient at the bedside Patient feels better no new complaints Vital signs noted Hospitalist Physical - Constitutional Vitals: Temp Pulse Resp BP Pulse Ox 97.9 F 96 H 18 142/60 95 09/05/21 16:40 06/07/21 16:40 06/07/21 16:40 06/07/21 16:40 06/07/21 16:40 General appearance: Present: no acute distress, well-nourished - EENT Eyes: Present: PERRL, EOM intact - Neck Neck: Present: supple, normal ROM - Respiratory Respiratory effort: normal Respiratory: bilateral: diminished, negative: rales, rhonchi, wheezing - Cardiovascular Rhythm: regular Heart Sounds: Present: S1 & S2 - Extremities Extremities: no ischemia, No edema - Abdominal General gastrointestinal: soft, non-tender, non-distended, normal bowel sounds - Integumentary Integumentary: Present: clear, warm - Psychiatric Psychiatric: appropriate mood/affect, cooperative - Neurologic Neurologic: CNII-XII intact, moves all extremities HEART Score - HEART Score Troponin: Troponin T 0.029 ng/mL (0.00-0.029) 06/02/21 05:53 Results - Labs CBC & Chem 7: 06/03/21 04:22 06/04/21 04:28 Labs: Laboratory Last Values WBC 4.1 K/mm3 (4.5-11.0) L 06/03/21 04:22 RBC 3.03 M/mm3 (3.65-5.03) L 06/03/21 04:22 Hgb 9.0 gm/dl (10.1-14.3) L 06/03/21 04:22 Hct 27.2 % (30.3-42.9) L 06/03/21 04:22 MCV 90 fl (79-97) 06/03/21 04:22 MCH 30 pg (28-32) 06/03/21 04:22 MCHC 33 % (30-34) 06/03/21 04:22 RDW 16.5 % (13.2-15.2) H 06/03/21 04:22 Plt Count 106 K/mm3 (140-440) L 06/03/21 04:22 Lymph % (Auto) 32.2 % (13.4-35.0) 06/01/21 20:38 Harding % (Auto) Senior Cost [employer]ant 06/03/21 04:22 Eos % (Auto) 1.1 % (0.0-4.3) 06/01/21 20:38 Baso % (Auto) 0.3 % (0.0-1.8) 06/01/21 20:38 Lymph # (Auto) 2.2 K/mm3 (1.2-5.4) 06/01/21 20:38 Harding # (Auto) 0.9 K/mm3 (0.0-0.8) H 06/01/21 20:38 Eos # (Auto) 0.1 K/mm3 (0.0-0.4) 06/01/21 20:38 Baso # (Auto) 0.0 K/mm3 (0.0-0.1) 06/01/21 20:38 Add Manual Diff Complete 06/03/21 04:22 Total Counted 100 06/03/21 04:22 Seg Neutrophils % 53.2 % (40.0-70.0) 06/01/21 20:38 Seg Neuts % (Manual) 66.0 % (40.0-70.0) 06/03/21 04:22 Lymphocytes % (Manual) 22.0 % (13.4-35.0) 06/03/21 04:22 Reactive Lymphs % (Man) 1.0 % 06/03/21 04:22 Monocytes % (Manual) 6.0 % (0.0-7.3) 06/03/21 04:22 Eosinophils % (Manual) 4.0 % (0.0-4.3) 06/03/21 04:22 Basophils % (Manual) 1.0 % (0.0-1.8) 06/03/21 04:22 Nucleated RBC % Not Reportable 06/03/21 04:22 Seg Neutrophils # 3.6 K/mm3 (1.8-7.7) 06/01/21 20:38 Seg Neutrophils # Man 2.7 K/mm3 (1.8-7.7) 06/03/21 04:22 Band Neutrophils # 0.0 K/mm3 06/03/21 04:22 Lymphocytes # (Manual) 0.9 K/mm3 (1.2-5.4) L 06/03/21 04:22 Abs React Lymphs (Man) 0.0 K/mm3 06/03/21 04:22 Monocytes # (Manual) 0.2 K/mm3 (0.0-0.8) 06/03/21 04:22 Eosinophils # (Manual) 0.2 K/mm3 (0.0-0.4) 06/03/21 04:22 Basophils # (Manual) 0.0 K/mm3 (0.0-0.1) 06/03/21 04:22 Metamyelocytes # 0.0 K/mm3 06/03/21 04:22 Myelocytes # 0.0 K/mm3 06/03/21 04:22 Promyelocytes # 0.0 K/mm3 06/03/21 04:22 Blast Cells # 0.0 K/mm3 06/03/21 04:22 WBC Morphology Not Reportable 06/03/21 04:22 Hypersegmented Neuts Not Reportable 06/03/21 04:22 Hyposegmented Neuts Not Reportable 06/03/21 04:22 Hypogranular Neuts Not Reportable 06/03/21 04:22 Smudge Cells Not Reportable 06/03/21 04:22 Toxic Granulation Not Reportable 06/03/21 04:22 Toxic Vacuolation Not Reportable 06/03/21 04:22 Dohle Bodies Not Reportable 06/03/21 04:22 Pelger-Huet Anomaly Not Reportable 06/03/21 04:22 Wilmer Rods Not Reportable 06/03/21 04:22 Platelet Estimate Consistent w auto 06/03/21 04:22 Clumped Platelets Not Reportable 06/03/21 04:22 Plt Clumps, EDTA Not Reportable 06/03/21 04:22 Large Platelets Not Reportable 06/03/21 04:22 Giant Platelets Not Reportable 06/03/21 04:22 Platelet Satelliting Not Reportable 06/03/21 04:22 Plt Morphology Comment Not Reportable 06/03/21 04:22 RBC Morphology Not Reportable 06/03/21 04:22 Dimorphic RBCs Not Reportable 06/03/21 04:22 Polychromasia Not Reportable 06/03/21 04:22 Hypochromasia Few 06/03/21 04:22 Poikilocytosis Not Reportable 06/03/21 04:22 Anisocytosis 1+ 06/03/21 04:22 Microcytosis Not Reportable 06/03/21 04:22 Macrocytosis Not Reportable 06/03/21 04:22 Spherocytes Not Reportable 06/03/21 04:22 Pappenheimer Bodies Not Reportable 06/03/21 04:22 Sickle Cells Not Reportable 06/03/21 04:22 Target Cells Not Reportable 06/03/21 04:22 Tear Drop Cells Not Reportable 06/03/21 04:22 Ovalocytes Few 06/03/21 04:22 Helmet Cells Not Reportable 06/03/21 04:22 Brown-Pettibone Bodies Not Reportable 06/03/21 04:22 Surprise Rings Not Reportable 06/03/21 04:22 Greg Cells Not Reportable 06/03/21 04:22 Bite Cells Not Reportable 06/03/21 04:22 Crenated Cell Not Reportable 06/03/21 04:22 Elliptocytes Not Reportable 06/03/21 04:22 Acanthocytes (Spur) Not Reportable 06/03/21 04:22 Rouleaux Not Reportable 06/03/21 04:22 Hemoglobin C Crystals Not Reportable 06/03/21 04:22 Schistocytes Not Reportable 06/03/21 04:22 Malaria parasites Not Reportable 06/03/21 04:22 Al Bodies Not Reportable 06/03/21 04:22 Hem Pathologist Commnt No 06/03/21 04:22 PT 15.4 Sec. (12.2-14.9) H 06/01/21 20:38 INR 1.16 (0.87-1.13) H 06/01/21 20:38 Sodium 141 mmol/L (137-145) 06/04/21 04:28 Potassium 4.7 mmol/L (3.6-5.0) 06/04/21 04:28 Chloride 111.6 mmol/L (98-107) H 06/04/21 04:28 Carbon Dioxide 21 mmol/L (22-30) L 06/04/21 04:28 Anion Gap 13 mmol/L 06/04/21 04:28 BUN 52 mg/dL (7-17) H 06/04/21 04:28 Creatinine 2.0 mg/dL (0.6-1.2) H 06/04/21 04:28 Estimated GFR 29 ml/min 06/04/21 04:28 BUN/Creatinine Ratio 26 % 06/04/21 04:28 Glucose 86 mg/dL (65-100) 06/04/21 04:28 POC Glucose 89 mg/dL (70-105) 06/02/21 03:01 Lactic Acid 1.10 mmol/L (0.7-2.0) 06/01/21 23:59 Calcium 9.3 mg/dL (8.4-10.2) 06/04/21 04:28 Magnesium 2.60 mg/dL (1.7-2.3) H 06/03/21 04:22 Total Bilirubin 0.50 mg/dL (0.1-1.2) 06/03/21 04:22 AST 25 units/L (5-40) 06/03/21 04:22 ALT 13 units/L (7-56) 06/03/21 04:22 Alkaline Phosphatase 73 units/L (35-129) 06/03/21 04:22 Ammonia 31.0 umol/L (25-60) 06/01/21 20:38 Total Creatine Kinase 41 units/L (30-135) 06/01/21 20:38 Troponin T 0.029 ng/mL (0.00-0.029) 06/02/21 05:53 Total Protein 7.4 g/dL (6.3-8.2) 06/03/21 04:22 Albumin 2.6 g/dL (3.9-5) L 06/03/21 04:22 Albumin/Globulin Ratio 0.5 % 06/03/21 04:22 Triglycerides 64 mg/dL (2-149) 06/01/21 20:38 Cholesterol 95 mg/dL (50-199) 06/01/21 20:38 LDL Cholesterol Direct 50 mg/dL (50-130) 06/01/21 20:38 HDL Cholesterol 34 mg/dL (40-59) L 06/01/21 20:38 Cholesterol/HDL Ratio 2.79 % 06/01/21 20:38 TSH 0.230 mlU/mL (0.270-4.200) L 06/01/21 20:38 Free T4 1.43 ng/dL (0.76-1.46) 06/02/21 01:04 Thyroxine (T4) 10.4 ug/dL (4.0-12.0) 06/02/21 01:04 Urine Color Yellow (Yellow) 06/01/21 Unknown Urine Turbidity Turbid (Clear) 06/01/21 Unknown Urine pH 5.0 (5.0-7.0) 06/01/21 Unknown Ur Specific [place]anger 1.013 (1.003-1.030) 06/01/21 Unknown Urine Protein 100 mg/dl mg/dL (Negative) 06/01/21 Unknown Urine Glucose (UA) Neg mg/dL (Negative) 06/01/21 Unknown Urine Ketones Neg mg/dL (Negative) 06/01/21 Unknown Urine Blood Lg (Negative) 06/01/21 Unknown Urine Nitrite Neg (Negative) 06/01/21 Unknown Urine Bilirubin Neg (Negative) 06/01/21 Unknown Urine Urobilinogen < 2.0 mg/dL (<2.0) 06/01/21 Unknown Ur Leukocyte Esterase Mod (Negative) 06/01/21 Unknown Urine WBC (Auto) > 182.0 /HPF (0.0-6.0) H 06/01/21 Unknown Urine RBC (Auto) 174.0 /HPF (0.0-6.0) 06/01/21 Unknown U Epithel Cells (Auto) 32.0 /HPF (0-13.0) H 06/01/21 Unknown Urine Bacteria (Auto) 4+ /HPF (Negative) 06/01/21 Unknown Urine WBC Clumps 3+ /HPF 06/01/21 Unknown Urine Yeast (Budding) 3+ /HPF 06/01/21 Unknown Urine Creatinine 105.1 mg/dL (0.1-20.0) H 06/03/21 13:26 Urine Sodium 39 mmol/L 06/03/21 13:26 Urine Total Protein 28 mg/dL (5-11.8) H 06/03/21 13:26 Microbiology: Microbiology 06/01/21 23:50 Peripheral/Venous Blood Culture - Final NO GROWTH AFTER 5 DAYS 06/01/21 23:59 Peripheral/Venous Blood Culture - Final NO GROWTH AFTER 5 DAYS Fitzpatrick/IV: Voiding Method Indwelling Catheter Active Medications - Current Medications Current Medications: Generic Name Dose Route Start Last Admin Trade Name Freq PRN Reason Stop Dose Admin Acetaminophen 650 mg 06/02/21 00:31 06/07/21 11:53 Acetaminophen 325 Mg Tab PO 650 mg Q4H PRN Administration Pain MILD(1-3)/Fever >100.5/GUEVARA Albuterol 2.5 mg 06/02/21 00:34 Albuterol 2.5 Mg/3 Ml Nebu IH Q3HRT PRN Shortness Of Breath Docusate Sodium 100 mg 06/02/21 10:00 06/07/21 10:21 Docusate Sodium 100 Mg Cap PO 100 mg BID KRISTIN Administration Fluconazole 100 mg 06/05/21 10:00 06/07/21 10:21 Fluconazole 100 Mg Tab PO 06/11/21 10:01 100 mg QDAY KRISTIN Administration Protocol Heparin Sodium (Porcine) 5,000 unit 06/02/21 10:00 06/07/21 10:21 Heparin 5,000 Unit/1 Ml Vial SUB-Q 5,000 unit Q12HR KRISTIN Administration Dextrose/Sodium Chloride 1,000 mls @ 75 mls/hr 06/03/21 10:00 06/07/21 15:01 D5/0.45ns IV 75 mls/hr DIRECT KRISTIN Administration Levetiracetam 500 mg 06/07/21 22:00 Levetiracetam 500 Mg Tab PO BID KRISTIN Levothyroxine Sodium 75 mcg 06/02/21 06:00 06/07/21 06:25 Levothyroxine 75 Mcg Tab PO 75 mcg DAILY@0600 KRISTIN Administration Naloxone HCl 0.1 mg 06/02/21 00:35 Naloxone 0.4 Mg/1 Ml Inj IV Q2MIN PRN Res Rate </= 8 or 02 SAT < 92% Ondansetron HCl 4 mg 06/02/21 00:31 Ondansetron 4 Mg/2 Ml Inj IV Q6H PRN Nausea And Vomiting Oxycodone/Acetaminophen 1 tab 06/02/21 00:35 06/04/21 09:35 Oxycodone /Acetaminophen 5-325mg Tab PO 1 tab Q6H PRN Administration Pain, Moderate (4-6) Pantoprazole Sodium 40 mg 06/02/21 10:00 06/07/21 10:20 Pantoprazole 40 Mg Inj IV 40 mg QDAY KRISTIN Administration Sodium Bicarbonate 1,300 mg 06/02/21 18:00 06/07/21 10:21 Sodium Bicarbonate 650 Mg Tab PO 1,300 mg BID KRISTIN Administration Sodium Chloride 10 ml 06/02/21 10:00 06/07/21 10:28 Sodium Chloride 0.9% 10 Ml Flush Syringe IV 10 ml BID KRISTIN Administration Sodium Chloride 10 ml 06/02/21 00:31 Sodium Chloride 0.9% 10 Ml Flush Syringe IV PRN PRN LINE FLUSH Nutrition/Malnutrition Assess - Dietary Evaluation Nutrition/Malnutrition Findings: Nutrition Notes Start: 06/02/21 10:10 Freq: Status: Active Protocol: Document 06/06/21 13:39 CW (Rec: 06/06/21 13:48 CW [id number]) Nutrition Notes Initial or Follow up Reassessment Current Diagnosis Acute Kidney Injury,Stroke Other Pertinent Diagnosis seizure, cirrhosis, liver mass , metastatic carinoma, anemia, debility, UTI Current Diet cardiac Mechanical soft Labs/Tests no new labs Pertinent Medications reviewed Height 5 ft Weight 83.1 kg Roby Body Weight (kg) 45.45 BMI 35.7 Weight change and time frame weight fluctuations noted Weight Status Obese Subjective/Other Information F/U for intakes. Pt reports consuming meals but reports that she historically does not consume large meals. Pt has been consiming <25% Burn Absent Trauma Absent GI Symptoms None Difficulty In Chewing Current % PO Negligible Minimum of two criteria No Energy Intake (severe) < or equal to 50% Estimated Energy Requirement > or equal to 5 days #1 Nutrition Diagnosis Inadequate oral intake Etiology advanced age As Evidenced by Signs and Symptoms PO intake < 25% of meals Is patient on ventilator? No Is Patient Ambulatory and/or Out of Bed No REE-([facility]-confined to bed) 1473.684 Kcal/Kg value to use for calculation 15 Approximate Energy Requirements Using 1247 kcal/Kg Calculation Used for Recommendations Kcal/kg Additional Notes protein needs: 45 - 55g (1 - 1 .2 g/kgIBW) Fluid needs: 1 ml/kcal Nutrition Intervention Change Diet Order: Continue current diet Add Supplement/Snack (indicate name/kcal Ensure Enlive BID /protein ) Provides kCal: 700 Provides Protein (gm) 40 Goal #1 Meet at least 75% of kcal and protein needs via PO Anticipated Discharge Needs: Cardiac Mechanical Soft Diet with ONS PRN Follow-Up By: 06/08/21 Additional Comments f/u for intakes/ ONS tolerance
[2021-06-07] MEDS: levETIRAcetam 500 MG TAB PO SCH (22:18)
[2021-06-08] MEDS: D5W/0.45% NACL 1,000 ML IV SCH ×2 (05:29→16:07)
[2021-06-08] MEDS: LEVOTHYROXINE 75 MCG TAB PO SCH (05:29)
[2021-06-08] MEDS: HEPARIN 5,000 UNIT/1 ML VIAL SUB-Q SCH ×2 (09:59→21:01)
[2021-06-08] MEDS: levETIRAcetam 500 MG TAB PO SCH ×2 (09:59→21:02)
[2021-06-08] MEDS: DOCUSATE SODIUM 100 MG CAP PO SCH ×2 (09:59→21:02)
[2021-06-08] MEDS: SODIUM BICARBONATE 650 MG TAB PO SCH ×2 (09:59→21:02)
[2021-06-08] MEDS: PANTOPRAZOLE 40 MG INJ IV SCH (09:59)
[2021-06-08] MEDS ORDERED: PANTOPRAZOLE 40 MG TAB PO SCH (10:00)
[2021-06-08] MEDS: FLUCONAZOLE 100 MG TAB PO SCH (10:00)
[2021-06-08] MEDS: PANTOPRAZOLE 40 MG TAB PO SCH (10:05)
--- NOTE | 2021-06-08 10:14 | Progress Note ---
Assessment and Plan - Patient Problems (1) MITCH (acute kidney injury) Current Visit: Yes Status: Acute Plan to address problem: Renal function showing steady improvement with IVF hydration and treatment of UTI. Will monitor closely. Will order labs this am. (2) Metabolic acidosis Current Visit: Yes Status: Acute Plan to address problem: Continue current sodium bicarbonate supplementation. (3) Hyperkalemia Current Visit: Yes Status: Acute Plan to address problem: In the setting of MITCH. Showing improvement. (4) Urinary tract infection Current Visit: Yes Status: Acute Plan to address problem: Evidence of aide growth notes in urine culture, continues on diflucan therapy. Subjective Date of service: 06/08/21 Principal diagnosis: MITCH Interval history: No acute issues reported overnight. No new labs this am. Will order to assess progress of renal function. Objective - Vital Signs Vital signs: Vital Signs - 12hr 06/07/21 06/07/21 06/08/21 22:35 23:21 03:07 Temperature 98.1 F 98.4 F Pulse Rate 69 81 Respiratory 17 16 Rate Blood Pressure 170/72 167/77 O2 Sat by Pulse 96 98 96 Oximetry 06/08/21 07:50 Temperature Pulse Rate Respiratory Rate Blood Pressure O2 Sat by Pulse 96 Oximetry - General Appearance General appearance: appears stated age EENT: ATNC Neck: no JVD Respiratory: Present: Clear to Ascultation Cardiology: regular Gastrointestinal: normal Integumentary: no rash Neurologic: no focal deficit Musculoskeletal: deferred Psychiatric: cooperative - Lab 06/03/21 04:22 06/04/21 04:28 Most recent lab results Calcium 9.3 mg/dL (8.4-10.2) 06/04/21 04:28 Magnesium 2.60 mg/dL (1.7-2.3) H 06/03/21 04:22 Urine Creatinine 105.1 mg/dL (0.1-20.0) H 06/03/21 13:26 Urine Sodium 39 mmol/L 06/03/21 13:26 Urine Total Protein 28 mg/dL (5-11.8) H 06/03/21 13:26 - Allied health notes Allied health notes reviewed: nursing Medications & Allergies - Medications Allergies/Adverse Reactions: Allergies No Known Allergies Allergy (Unverified 04/15/21 08:22) Home Medications: Home Medications Medication Instructions Recorded Confirmed Last Taken Type Gabapentin 100 mg PO BID 11/28/16 06/05/21 04/14/21 History levETIRAcetam [Keppra TAB] 500 mg PO BID 11/28/16 06/05/21 04/14/21 21:00 History Torsemide [Demadex] 10 mg PO QDAY 12/26/20 06/05/21 04/14/21 History Pantoprazole [Protonix TAB] 20 mg PO QDAY tablet. 12/29/20 06/05/21 04/14/21 Rx Rifaximin [Xifaxan] 550 mg PO BID tablet 12/29/20 06/05/21 04/14/21 Rx oxyCODONE /ACETAMINOPHEN [Percocet 1 tab PO Q6H PRN #10 tablet 12/29/20 06/05/21 04/14/21 Rx 5/325 mg] Active Medications: Generic Name Dose Route Start Last Admin Trade Name Freq PRN Reason Stop Dose Admin Acetaminophen 650 mg 06/02/21 00:31 06/07/21 11:53 Acetaminophen 325 Mg Tab PO 650 mg Q4H PRN Administration Pain MILD(1-3)/Fever >100.5/GUEVARA Albuterol 2.5 mg 06/02/21 00:34 Albuterol 2.5 Mg/3 Ml Nebu IH Q3HRT PRN Shortness Of Breath Docusate Sodium 100 mg 06/02/21 10:00 06/08/21 09:59 Docusate Sodium 100 Mg Cap PO 100 mg BID KRISTIN Administration Fluconazole 100 mg 06/05/21 10:00 06/08/21 10:00 Fluconazole 100 Mg Tab PO 06/11/21 10:01 100 mg QDAY KRISTIN Administration Protocol Heparin Sodium (Porcine) 5,000 unit 06/02/21 10:00 06/08/21 09:59 Heparin 5,000 Unit/1 Ml Vial SUB-Q 5,000 unit Q12HR KRISTIN Administration Dextrose/Sodium Chloride 1,000 mls @ 75 mls/hr 06/03/21 10:00 06/08/21 05:29 D5/0.45ns IV 75 mls/hr DIRECT KRISTIN Administration Levetiracetam 500 mg 06/07/21 22:00 06/08/21 09:59 Levetiracetam 500 Mg Tab PO 500 mg BID KRISTIN Administration Levothyroxine Sodium 75 mcg 06/02/21 06:00 06/08/21 05:29 Levothyroxine 75 Mcg Tab PO 75 mcg DAILY@0600 KRISTIN Administration Naloxone HCl 0.1 mg 06/02/21 00:35 Naloxone 0.4 Mg/1 Ml Inj IV Q2MIN PRN Res Rate </= 8 or 02 SAT < 92% Ondansetron HCl 4 mg 06/02/21 00:31 Ondansetron 4 Mg/2 Ml Inj IV Q6H PRN Nausea And Vomiting Oxycodone/Acetaminophen 1 tab 06/02/21 00:35 06/04/21 09:35 Oxycodone /Acetaminophen 5-325mg Tab PO 1 tab Q6H PRN Administration Pain, Moderate (4-6) Pantoprazole Sodium 40 mg 06/08/21 10:00 06/08/21 10:05 Pantoprazole 40 Mg Tab PO Not Given QDAC KRISTIN Sodium Bicarbonate 1,300 mg 06/02/21 18:00 06/08/21 09:59 Sodium Bicarbonate 650 Mg Tab PO 1,300 mg BID KRISTIN Administration Sodium Chloride 10 ml 06/02/21 10:00 06/08/21 10:00 Sodium Chloride 0.9% 10 Ml Flush Syringe IV 10 ml BID KRISTIN Administration Sodium Chloride 10 ml 06/02/21 00:31 Sodium Chloride 0.9% 10 Ml Flush Syringe IV PRN PRN LINE FLUSH
--- NOTE | 2021-06-08 12:35 | Progress Note ---
Assessment and Plan Assessment and plan: --Urinary tract infection Angela in urine, Continue Diflucan for total 7 days --Acute metabolic encephalopathy -CT head negative for acute abnormalities Multifactorial, dementia, probably UTI Treat the underlying cause, supportive care --Hyperkalemia; on admission 6.2 Resolved, patient received treatment Closely monitor electrolytes --Acute kidney injury ; present on admission Vasomotor nephropathy Gentle hydration, monitor renal function, avoid nephrotoxin Creatinine trending down 4.1 - 2.0 Nephrology following, plenty of oral fluids --Elevated troponin/non-ST elevation PA type II No cardiac symptoms like chest pain or shortness of breath Cardiac enzymes trending down --Moderate malnutrition/hypoalbuminemia Albumin 3.0, nutrition supplements, supportive care Nutrition consult if needed --History of hypothyroidism Continue Synthroid 75 mcg daily --History of thrombocytopenia Closely monitor --History of liver mass/metastatic disease Outpatient follow-up with hematology oncology --History of stroke ; with residual weakness PT OT, possible home with home health on discharge --History of seizure; Seizure precautions, continue Keppra --DVT and GI PPx -On Protonix and heparin[caution thrombocytopenia] Significant improvement of renal function, creatinine today is 2.0 Nephrology following PT recommended subacute versus acute rehab placement DC planning per case management Closely monitor the patient and adjust management as needed Plan of care reviewed with the patient and her nurse Pending placement, patient is medically stable Daily hospital course: 06/03/2021: Patient is doing well. She is afebrile without acute GI symptoms. Patient denies dysuria abdominal pain lateral flank pain. MITCH is improving with IV fluids. Nephrology is following. 06/04/2021: Patient is doing well. MITCH progressively improving with IV fluids. Nephrology is following. Urine cultures grew yeast. Will discontinue Rocephin and start on Diflucan. Hopefully discharge soon with resolution of MITCH. 06/05/2021 : significant improvement of renal function, creatinine today is 2.0 Nephrology following PT recommended subacute versus acute rehab placement DC planning per case management 06/06/2021; Urine cultures positive for Angela Patient is on Diflucan DC planning per case management Subacute versus acute rehab placement 06/07/2021; Patient feels better receiving Diflucan for Angela UTI Case management assisting with placement subacute/SNF 06/08/21; Pending placement subacute vs SNF DC planning per case management Pending placement Patient is medically stable History Interval history: I have seen and examined the patient at the bedside Patient has no new complaint Hospitalist Physical - Constitutional Vitals: Temp Pulse Resp BP Pulse Ox 98.4 F 72 18 170/68 95 06/08/21 11:52 06/08/21 11:52 06/08/21 11:52 06/08/21 11:52 06/08/21 11:52 General appearance: Present: no acute distress, well-nourished - EENT Eyes: Present: PERRL, EOM intact - Neck Neck: Present: supple, normal ROM - Respiratory Respiratory effort: normal Respiratory: bilateral: diminished, negative: rales, rhonchi, wheezing - Cardiovascular Rhythm: regular Heart Sounds: Present: S1 & S2 - Extremities Extremities: no ischemia, No edema - Abdominal General gastrointestinal: soft, non-tender, non-distended, normal bowel sounds - Integumentary Integumentary: Present: clear, warm - Psychiatric Psychiatric: appropriate mood/affect, cooperative - Neurologic Neurologic: CNII-XII intact, moves all extremities HEART Score - HEART Score Troponin: Troponin T 0.029 ng/mL (0.00-0.029) 06/02/21 05:53 Results - Labs CBC & Chem 7: 06/03/21 04:22 06/04/21 04:28 Labs: Laboratory Last Values WBC 4.1 K/mm3 (4.5-11.0) L 06/03/21 04:22 RBC 3.03 M/mm3 (3.65-5.03) L 06/03/21 04:22 Hgb 9.0 gm/dl (10.1-14.3) L 06/03/21 04:22 Hct 27.2 % (30.3-42.9) L 06/03/21 04:22 MCV 90 fl (79-97) 06/03/21 04:22 MCH 30 pg (28-32) 06/03/21 04:22 MCHC 33 % (30-34) 06/03/21 04:22 RDW 16.5 % (13.2-15.2) H 06/03/21 04:22 Plt Count 106 K/mm3 (140-440) L 06/03/21 04:22 Lymph % (Auto) 32.2 % (13.4-35.0) 06/01/21 20:38 Marion % (Auto) Presentation Designer 06/03/21 04:22 Eos % (Auto) 1.1 % (0.0-4.3) 06/01/21 20:38 Baso % (Auto) 0.3 % (0.0-1.8) 06/01/21 20:38 Lymph # (Auto) 2.2 K/mm3 (1.2-5.4) 06/01/21 20:38 Marion # (Auto) 0.9 K/mm3 (0.0-0.8) H 06/01/21 20:38 Eos # (Auto) 0.1 K/mm3 (0.0-0.4) 06/01/21 20:38 Baso # (Auto) 0.0 K/mm3 (0.0-0.1) 06/01/21 20:38 Add Manual Diff Complete 06/03/21 04:22 Total Counted 100 06/03/21 04:22 Seg Neutrophils % 53.2 % (40.0-70.0) 06/01/21 20:38 Seg Neuts % (Manual) 66.0 % (40.0-70.0) 06/03/21 04:22 Lymphocytes % (Manual) 22.0 % (13.4-35.0) 06/03/21 04:22 Reactive Lymphs % (Man) 1.0 % 06/03/21 04:22 Monocytes % (Manual) 6.0 % (0.0-7.3) 06/03/21 04:22 Eosinophils % (Manual) 4.0 % (0.0-4.3) 06/03/21 04:22 Basophils % (Manual) 1.0 % (0.0-1.8) 06/03/21 04:22 Nucleated RBC % Not Reportable 06/03/21 04:22 Seg Neutrophils # 3.6 K/mm3 (1.8-7.7) 06/01/21 20:38 Seg Neutrophils # Man 2.7 K/mm3 (1.8-7.7) 06/03/21 04:22 Band Neutrophils # 0.0 K/mm3 06/03/21 04:22 Lymphocytes # (Manual) 0.9 K/mm3 (1.2-5.4) L 06/03/21 04:22 Abs React Lymphs (Man) 0.0 K/mm3 06/03/21 04:22 Monocytes # (Manual) 0.2 K/mm3 (0.0-0.8) 06/03/21 04:22 Eosinophils # (Manual) 0.2 K/mm3 (0.0-0.4) 06/03/21 04:22 Basophils # (Manual) 0.0 K/mm3 (0.0-0.1) 06/03/21 04:22 Metamyelocytes # 0.0 K/mm3 06/03/21 04:22 Myelocytes # 0.0 K/mm3 06/03/21 04:22 Promyelocytes # 0.0 K/mm3 06/03/21 04:22 Blast Cells # 0.0 K/mm3 06/03/21 04:22 WBC Morphology Not Reportable 06/03/21 04:22 Hypersegmented Neuts Not Reportable 06/03/21 04:22 Hyposegmented Neuts Not Reportable 06/03/21 04:22 Hypogranular Neuts Not Reportable 06/03/21 04:22 Smudge Cells Not Reportable 06/03/21 04:22 Toxic Granulation Not Reportable 06/03/21 04:22 Toxic Vacuolation Not Reportable 06/03/21 04:22 Dohle Bodies Not Reportable 06/03/21 04:22 Pelger-Huet Anomaly Not Reportable 06/03/21 04:22 Wilmer Rods Not Reportable 06/03/21 04:22 Platelet Estimate Consistent w auto 06/03/21 04:22 Clumped Platelets Not Reportable 06/03/21 04:22 Plt Clumps, EDTA Not Reportable 06/03/21 04:22 Large Platelets Not Reportable 06/03/21 04:22 Giant Platelets Not Reportable 06/03/21 04:22 Platelet Satelliting Not Reportable 06/03/21 04:22 Plt Morphology Comment Not Reportable 06/03/21 04:22 RBC Morphology Not Reportable 06/03/21 04:22 Dimorphic RBCs Not Reportable 06/03/21 04:22 Polychromasia Not Reportable 06/03/21 04:22 Hypochromasia Few 06/03/21 04:22 Poikilocytosis Not Reportable 06/03/21 04:22 Anisocytosis 1+ 06/03/21 04:22 Microcytosis Not Reportable 06/03/21 04:22 Macrocytosis Not Reportable 06/03/21 04:22 Spherocytes Not Reportable 06/03/21 04:22 Pappenheimer Bodies Not Reportable 06/03/21 04:22 Sickle Cells Not Reportable 06/03/21 04:22 Target Cells Not Reportable 06/03/21 04:22 Tear Drop Cells Not Reportable 06/03/21 04:22 Ovalocytes Few 06/03/21 04:22 Helmet Cells Not Reportable 06/03/21 04:22 Brown-Geddes Bodies Not Reportable 06/03/21 04:22 [place] Rings Not Reportable 06/03/21 04:22 [place] Cells Not Reportable 06/03/21 04:22 Bite Cells Not Reportable 06/03/21 04:22 Crenated Cell Not Reportable 06/03/21 04:22 Elliptocytes Not Reportable 06/03/21 04:22 Acanthocytes (Spur) Not Reportable 06/03/21 04:22 Rouleaux Not Reportable 06/03/21 04:22 Hemoglobin C Crystals Not Reportable 06/03/21 04:22 Schistocytes Not Reportable 06/03/21 04:22 Malaria parasites Not Reportable 06/03/21 04:22 Al Bodies Not Reportable 06/03/21 04:22 Hem Pathologist Commnt No 06/03/21 04:22 PT 15.4 Sec. (12.2-14.9) H 06/01/21 20:38 INR 1.16 (0.87-1.13) H 06/01/21 20:38 Sodium 141 mmol/L (137-145) 06/04/21 04:28 Potassium 4.7 mmol/L (3.6-5.0) 06/04/21 04:28 Chloride 111.6 mmol/L (98-107) H 06/04/21 04:28 Carbon Dioxide 21 mmol/L (22-30) L 06/04/21 04:28 Anion Gap 13 mmol/L 06/04/21 04:28 BUN 52 mg/dL (7-17) H 06/04/21 04:28 Creatinine 2.0 mg/dL (0.6-1.2) H 06/04/21 04:28 Estimated GFR 29 ml/min 06/04/21 04:28 BUN/Creatinine Ratio 26 % 06/04/21 04:28 Glucose 86 mg/dL (65-100) 06/04/21 04:28 POC Glucose 89 mg/dL (70-105) 06/02/21 03:01 Lactic Acid 1.10 mmol/L (0.7-2.0) 06/01/21 23:59 Calcium 9.3 mg/dL (8.4-10.2) 06/04/21 04:28 Magnesium 2.60 mg/dL (1.7-2.3) H 06/03/21 04:22 Total Bilirubin 0.50 mg/dL (0.1-1.2) 06/03/21 04:22 AST 25 units/L (5-40) 06/03/21 04:22 ALT 13 units/L (7-56) 06/03/21 04:22 Alkaline Phosphatase 73 units/L (35-129) 06/03/21 04:22 Ammonia 31.0 umol/L (25-60) 06/01/21 20:38 Total Creatine Kinase 41 units/L (30-135) 06/01/21 20:38 Troponin T 0.029 ng/mL (0.00-0.029) 06/02/21 05:53 Total Protein 7.4 g/dL (6.3-8.2) 06/03/21 04:22 Albumin 2.6 g/dL (3.9-5) L 06/03/21 04:22 Albumin/Globulin Ratio 0.5 % 06/03/21 04:22 Triglycerides 64 mg/dL (2-149) 06/01/21 20:38 Cholesterol 95 mg/dL (50-199) 06/01/21 20:38 LDL Cholesterol Direct 50 mg/dL (50-130) 06/01/21 20:38 HDL Cholesterol 34 mg/dL (40-59) L 06/01/21 20:38 Cholesterol/HDL Ratio 2.79 % 06/01/21 20:38 TSH 0.230 mlU/mL (0.270-4.200) L 06/01/21 20:38 Free T4 1.43 ng/dL (0.76-1.46) 06/02/21 01:04 Thyroxine (T4) 10.4 ug/dL (4.0-12.0) 06/02/21 01:04 Urine Color Yellow (Yellow) 06/01/21 Unknown Urine Turbidity Turbid (Clear) 06/01/21 Unknown Urine pH 5.0 (5.0-7.0) 06/01/21 Unknown Ur Specific [place] 1.013 (1.003-1.030) 06/01/21 Unknown Urine Protein 100 mg/dl mg/dL (Negative) 06/01/21 Unknown Urine Glucose (UA) Neg mg/dL (Negative) 06/01/21 Unknown Urine Ketones Neg mg/dL (Negative) 06/01/21 Unknown Urine Blood Lg (Negative) 06/01/21 Unknown Urine Nitrite Neg (Negative) 06/01/21 Unknown Urine Bilirubin Neg (Negative) 06/01/21 Unknown Urine Urobilinogen < 2.0 mg/dL (<2.0) 06/01/21 Unknown Ur Leukocyte Esterase Mod (Negative) 06/01/21 Unknown Urine WBC (Auto) > 182.0 /HPF (0.0-6.0) H 06/01/21 Unknown Urine RBC (Auto) 174.0 /HPF (0.0-6.0) 06/01/21 Unknown U Epithel Cells (Auto) 32.0 /HPF (0-13.0) H 06/01/21 Unknown Urine Bacteria (Auto) 4+ /HPF (Negative) 06/01/21 Unknown Urine WBC Clumps 3+ /HPF 06/01/21 Unknown Urine Yeast (Budding) 3+ /HPF 06/01/21 Unknown Urine Creatinine 105.1 mg/dL (0.1-20.0) H 06/03/21 13:26 Urine Sodium 39 mmol/L 06/03/21 13:26 Urine Total Protein 28 mg/dL (5-11.8) H 06/03/21 13:26 Fitzpatrick/IV: Voiding Method Indwelling Catheter Active Medications - Current Medications Current Medications: Generic Name Dose Route Start Last Admin Trade Name Freq PRN Reason Stop Dose Admin Acetaminophen 650 mg 06/02/21 00:31 06/07/21 11:53 Acetaminophen 325 Mg Tab PO 650 mg Q4H PRN Administration Pain MILD(1-3)/Fever >100.5/GUEVARA Albuterol 2.5 mg 06/02/21 00:34 Albuterol 2.5 Mg/3 Ml Nebu IH Q3HRT PRN Shortness Of Breath Docusate Sodium 100 mg 06/02/21 10:00 06/08/21 09:59 Docusate Sodium 100 Mg Cap PO 100 mg BID KRISTIN Administration Fluconazole 100 mg 06/05/21 10:00 06/08/21 10:00 Fluconazole 100 Mg Tab PO 06/11/21 10:01 100 mg QDAY KRISTIN Administration Protocol Heparin Sodium (Porcine) 5,000 unit 06/02/21 10:00 06/08/21 09:59 Heparin 5,000 Unit/1 Ml Vial SUB-Q 5,000 unit Q12HR KRISTIN Administration Dextrose/Sodium Chloride 1,000 mls @ 75 mls/hr 06/03/21 10:00 06/08/21 05:29 D5/0.45ns IV 75 mls/hr DIRECT KRISTIN Administration Levetiracetam 500 mg 06/07/21 22:00 06/08/21 09:59 Levetiracetam 500 Mg Tab PO 500 mg BID KRISTIN Administration Levothyroxine Sodium 75 mcg 06/02/21 06:00 06/08/21 05:29 Levothyroxine 75 Mcg Tab PO 75 mcg DAILY@0600 KRISTIN Administration Naloxone HCl 0.1 mg 06/02/21 00:35 Naloxone 0.4 Mg/1 Ml Inj IV Q2MIN PRN Res Rate </= 8 or 02 SAT < 92% Ondansetron HCl 4 mg 06/02/21 00:31 Ondansetron 4 Mg/2 Ml Inj IV Q6H PRN Nausea And Vomiting Oxycodone/Acetaminophen 1 tab 06/02/21 00:35 06/04/21 09:35 Oxycodone /Acetaminophen 5-325mg Tab PO 1 tab Q6H PRN Administration Pain, Moderate (4-6) Pantoprazole Sodium 40 mg 06/08/21 10:00 06/08/21 10:05 Pantoprazole 40 Mg Tab PO Not Given QDAC KRISTIN Sodium Bicarbonate 1,300 mg 06/02/21 18:00 06/08/21 09:59 Sodium Bicarbonate 650 Mg Tab PO 1,300 mg BID KRISTIN Administration Sodium Chloride 10 ml 06/02/21 10:00 06/08/21 10:00 Sodium Chloride 0.9% 10 Ml Flush Syringe IV 10 ml BID KRISTIN Administration Sodium Chloride 10 ml 06/02/21 00:31 Sodium Chloride 0.9% 10 Ml Flush Syringe IV PRN PRN LINE FLUSH Nutrition/Malnutrition Assess - Dietary Evaluation Nutrition/Malnutrition Findings: Nutrition Notes Start: 06/02/21 10:10 Freq: Status: Active Protocol: Document 06/06/21 13:39 CW (Rec: 06/06/21 13:48 CW [id number]) Nutrition Notes Initial or Follow up Reassessment Current Diagnosis Acute Kidney Injury,Stroke Other Pertinent Diagnosis seizure, cirrhosis, liver mass , metastatic carinoma, anemia, debility, UTI Current Diet cardiac Mechanical soft Labs/Tests no new labs Pertinent Medications reviewed Height 5 ft Weight 83.1 kg [place] Body Weight (kg) 45.45 BMI 35.7 Weight change and time frame weight fluctuations noted Weight Status Obese Subjective/Other Information F/U for intakes. Pt reports consuming meals but reports that she historically does not consume large meals. Pt has been consiming <25% Burn Absent Trauma Absent GI Symptoms None Difficulty In Chewing Current % PO Negligible Minimum of two criteria No Energy Intake (severe) < or equal to 50% Estimated Energy Requirement > or equal to 5 days #1 Nutrition Diagnosis Inadequate oral intake Etiology advanced age As Evidenced by Signs and Symptoms PO intake < 25% of meals Is patient on ventilator? No Is Patient Ambulatory and/or Out of Bed No REE-([facility]-confined to bed) 1473.684 Kcal/Kg value to use for calculation 15 Approximate Energy Requirements Using 1247 kcal/Kg Calculation Used for Recommendations Kcal/kg Additional Notes protein needs: 45 - 55g (1 - 1 .2 g/kgIBW) Fluid needs: 1 ml/kcal Nutrition Intervention Change Diet Order: Continue current diet Add Supplement/Snack (indicate name/kcal Ensure Enlive BID /protein ) Provides kCal: 700 Provides Protein (gm) 40 Goal #1 Meet at least 75% of kcal and protein needs via PO Anticipated Discharge Needs: Cardiac Mechanical Soft Diet with ONS PRN Follow-Up By: 06/08/21 Additional Comments f/u for intakes/ ONS tolerance
[2021-06-08] MEDS ORDERED: hydrALAZINE 20 MG/1 ML INJ IV PRN (13:19)
[2021-06-08] MEDS: hydrALAZINE 25 MG TAB PO SCH (21:03)
[2021-06-09] MEDS: LEVOTHYROXINE 75 MCG TAB PO SCH (05:23)
[2021-06-09] MEDS: hydrALAZINE 25 MG TAB PO SCH ×3 (05:23→22:44)
[2021-06-09] MEDS: D5W/0.45% NACL 1,000 ML IV SCH ×2 (06:37→22:53)
[2021-06-09] MEDS: PANTOPRAZOLE 40 MG TAB PO SCH (08:20)
--- NOTE | 2021-06-09 09:45 | Progress Note ---
Hospitalist Physical - Constitutional Vitals: Temp Pulse Resp BP Pulse Ox 99.2 F 93 H 20 145/70 99 06/09/21 07:28 06/09/21 08:36 06/09/21 07:28 06/09/21 07:28 06/09/21 07:28 General appearance: Present: no acute distress, well-nourished HEART Score - HEART Score Troponin: Troponin T 0.029 ng/mL (0.00-0.029) 06/02/21 05:53 Results - Labs CBC & Chem 7: 06/03/21 04:22 06/08/21 15:14 Labs: Laboratory Last Values WBC 4.1 K/mm3 (4.5-11.0) L 06/03/21 04:22 RBC 3.03 M/mm3 (3.65-5.03) L 06/03/21 04:22 Hgb 9.0 gm/dl (10.1-14.3) L 06/03/21 04:22 Hct 27.2 % (30.3-42.9) L 06/03/21 04:22 MCV 90 fl (79-97) 06/03/21 04:22 MCH 30 pg (28-32) 06/03/21 04:22 MCHC 33 % (30-34) 06/03/21 04:22 RDW 16.5 % (13.2-15.2) H 06/03/21 04:22 Plt Count 106 K/mm3 (140-440) L 06/03/21 04:22 Lymph % (Auto) 32.2 % (13.4-35.0) 06/01/21 20:38 [place] % (Auto) Heel Seat Fitter 06/03/21 04:22 Eos % (Auto) 1.1 % (0.0-4.3) 06/01/21 20:38 Baso % (Auto) 0.3 % (0.0-1.8) 06/01/21 20:38 Lymph # (Auto) 2.2 K/mm3 (1.2-5.4) 06/01/21 20:38 [place] # (Auto) 0.9 K/mm3 (0.0-0.8) H 06/01/21 20:38 Eos # (Auto) 0.1 K/mm3 (0.0-0.4) 06/01/21 20:38 Baso # (Auto) 0.0 K/mm3 (0.0-0.1) 06/01/21 20:38 Add Manual Diff Complete 06/03/21 04:22 Total Counted 100 06/03/21 04:22 Seg Neutrophils % 53.2 % (40.0-70.0) 06/01/21 20:38 Seg Neuts % (Manual) 66.0 % (40.0-70.0) 06/03/21 04:22 Lymphocytes % (Manual) 22.0 % (13.4-35.0) 06/03/21 04:22 Reactive Lymphs % (Man) 1.0 % 06/03/21 04:22 Monocytes % (Manual) 6.0 % (0.0-7.3) 06/03/21 04:22 Eosinophils % (Manual) 4.0 % (0.0-4.3) 06/03/21 04:22 Basophils % (Manual) 1.0 % (0.0-1.8) 06/03/21 04:22 Nucleated RBC % Not Reportable 06/03/21 04:22 Seg Neutrophils # 3.6 K/mm3 (1.8-7.7) 06/01/21 20:38 Seg Neutrophils # Man 2.7 K/mm3 (1.8-7.7) 06/03/21 04:22 Band Neutrophils # 0.0 K/mm3 06/03/21 04:22 Lymphocytes # (Manual) 0.9 K/mm3 (1.2-5.4) L 06/03/21 04:22 Abs React Lymphs (Man) 0.0 K/mm3 06/03/21 04:22 Monocytes # (Manual) 0.2 K/mm3 (0.0-0.8) 06/03/21 04:22 Eosinophils # (Manual) 0.2 K/mm3 (0.0-0.4) 06/03/21 04:22 Basophils # (Manual) 0.0 K/mm3 (0.0-0.1) 06/03/21 04:22 Metamyelocytes # 0.0 K/mm3 06/03/21 04:22 Myelocytes # 0.0 K/mm3 06/03/21 04:22 Promyelocytes # 0.0 K/mm3 06/03/21 04:22 Blast Cells # 0.0 K/mm3 06/03/21 04:22 WBC Morphology Not Reportable 06/03/21 04:22 Hypersegmented Neuts Not Reportable 06/03/21 04:22 Hyposegmented Neuts Not Reportable 06/03/21 04:22 Hypogranular Neuts Not Reportable 06/03/21 04:22 Smudge Cells Not Reportable 06/03/21 04:22 Toxic Granulation Not Reportable 06/03/21 04:22 Toxic Vacuolation Not Reportable 06/03/21 04:22 Dohle Bodies Not Reportable 06/03/21 04:22 Pelger-Huet Anomaly Not Reportable 06/03/21 04:22 Wilmer Rods Not Reportable 06/03/21 04:22 Platelet Estimate Consistent w auto 06/03/21 04:22 Clumped Platelets Not Reportable 06/03/21 04:22 Plt Clumps, EDTA Not Reportable 06/03/21 04:22 Large Platelets Not Reportable 06/03/21 04:22 Giant Platelets Not Reportable 06/03/21 04:22 Platelet Satelliting Not Reportable 06/03/21 04:22 Plt Morphology Comment Not Reportable 06/03/21 04:22 RBC Morphology Not Reportable 06/03/21 04:22 Dimorphic RBCs Not Reportable 06/03/21 04:22 Polychromasia Not Reportable 06/03/21 04:22 Hypochromasia Few 06/03/21 04:22 Poikilocytosis Not Reportable 06/03/21 04:22 Anisocytosis 1+ 06/03/21 04:22 Microcytosis Not Reportable 06/03/21 04:22 Macrocytosis Not Reportable 06/03/21 04:22 Spherocytes Not Reportable 06/03/21 04:22 Pappenheimer Bodies Not Reportable 06/03/21 04:22 Sickle Cells Not Reportable 06/03/21 04:22 Target Cells Not Reportable 06/03/21 04:22 Tear Drop Cells Not Reportable 06/03/21 04:22 Ovalocytes Few 06/03/21 04:22 Helmet Cells Not Reportable 06/03/21 04:22 Brown-[place] Bodies Not Reportable 06/03/21 04:22 [place] Rings Not Reportable 06/03/21 04:22 Greg Cells Not Reportable 06/03/21 04:22 Bite Cells Not Reportable 06/03/21 04:22 Crenated Cell Not Reportable 06/03/21 04:22 Elliptocytes Not Reportable 06/03/21 04:22 Acanthocytes (Spur) Not Reportable 06/03/21 04:22 Rouleaux Not Reportable 06/03/21 04:22 Hemoglobin C Crystals Not Reportable 06/03/21 04:22 Schistocytes Not Reportable 06/03/21 04:22 Malaria parasites Not Reportable 06/03/21 04:22 Al Bodies Not Reportable 06/03/21 04:22 Hem Pathologist Commnt No 06/03/21 04:22 PT 15.4 Sec. (12.2-14.9) H 06/01/21 20:38 INR 1.16 (0.87-1.13) H 06/01/21 20:38 Sodium 141 mmol/L (137-145) 06/08/21 15:14 Potassium 4.8 mmol/L (3.6-5.0) 06/08/21 15:14 Chloride 112.7 mmol/L (98-107) H 06/08/21 15:14 Carbon Dioxide 21 mmol/L (22-30) L 06/08/21 15:14 Anion Gap 12 mmol/L 06/08/21 15:14 BUN 15 mg/dL (7-17) 06/08/21 15:14 Creatinine 1.4 mg/dL (0.6-1.2) H 06/08/21 15:14 Estimated GFR 44 ml/min 06/08/21 15:14 BUN/Creatinine Ratio 11 % 06/08/21 15:14 Glucose 96 mg/dL (65-100) 06/08/21 15:14 POC Glucose 89 mg/dL (70-105) 06/02/21 03:01 Lactic Acid 1.10 mmol/L (0.7-2.0) 06/01/21 23:59 Calcium 9.0 mg/dL (8.4-10.2) 06/08/21 15:14 Magnesium 2.60 mg/dL (1.7-2.3) H 06/03/21 04:22 Total Bilirubin 0.50 mg/dL (0.1-1.2) 06/03/21 04:22 AST 25 units/L (5-40) 06/03/21 04:22 ALT 13 units/L (7-56) 06/03/21 04:22 Alkaline Phosphatase 73 units/L (35-129) 06/03/21 04:22 Ammonia 31.0 umol/L (25-60) 06/01/21 20:38 Total Creatine Kinase 41 units/L (30-135) 06/01/21 20:38 Troponin T 0.029 ng/mL (0.00-0.029) 06/02/21 05:53 Total Protein 7.4 g/dL (6.3-8.2) 06/03/21 04:22 Albumin 2.6 g/dL (3.9-5) L 06/03/21 04:22 Albumin/Globulin Ratio 0.5 % 06/03/21 04:22 Triglycerides 64 mg/dL (2-149) 06/01/21 20:38 Cholesterol 95 mg/dL (50-199) 06/01/21 20:38 LDL Cholesterol Direct 50 mg/dL (50-130) 06/01/21 20:38 HDL Cholesterol 34 mg/dL (40-59) L 06/01/21 20:38 Cholesterol/HDL Ratio 2.79 % 06/01/21 20:38 TSH 0.230 mlU/mL (0.270-4.200) L 06/01/21 20:38 Free T4 1.43 ng/dL (0.76-1.46) 06/02/21 01:04 Thyroxine (T4) 10.4 ug/dL (4.0-12.0) 06/02/21 01:04 Urine Color Yellow (Yellow) 06/01/21 Unknown Urine Turbidity Turbid (Clear) 06/01/21 Unknown Urine pH 5.0 (5.0-7.0) 06/01/21 Unknown Ur Specific [place] 1.013 (1.003-1.030) 06/01/21 Unknown Urine Protein 100 mg/dl mg/dL (Negative) 06/01/21 Unknown Urine Glucose (UA) Neg mg/dL (Negative) 06/01/21 Unknown Urine Ketones Neg mg/dL (Negative) 06/01/21 Unknown Urine Blood Lg (Negative) 06/01/21 Unknown Urine Nitrite Neg (Negative) 06/01/21 Unknown Urine Bilirubin Neg (Negative) 06/01/21 Unknown Urine Urobilinogen < 2.0 mg/dL (<2.0) 06/01/21 Unknown Ur Leukocyte Esterase Mod (Negative) 06/01/21 Unknown Urine WBC (Auto) > 182.0 /HPF (0.0-6.0) H 06/01/21 Unknown Urine RBC (Auto) 174.0 /HPF (0.0-6.0) 06/01/21 Unknown U Epithel Cells (Auto) 32.0 /HPF (0-13.0) H 06/01/21 Unknown Urine Bacteria (Auto) 4+ /HPF (Negative) 06/01/21 Unknown Urine WBC Clumps 3+ /HPF 06/01/21 Unknown Urine Yeast (Budding) 3+ /HPF 06/01/21 Unknown Urine Creatinine 105.1 mg/dL (0.1-20.0) H 06/03/21 13:26 Urine Sodium 39 mmol/L 06/03/21 13:26 Urine Total Protein 28 mg/dL (5-11.8) H 06/03/21 13:26 [place]/IV: Voiding Method Indwelling Catheter Active Medications - Current Medications Current Medications: Generic Name Dose Route Start Last Admin Trade Name Freq PRN Reason Stop Dose Admin Acetaminophen 650 mg 06/02/21 00:31 06/07/21 11:53 Acetaminophen 325 Mg Tab PO 650 mg Q4H PRN Administration Pain MILD(1-3)/Fever >100.5/GUEVARA Albuterol 2.5 mg 06/02/21 00:34 Albuterol 2.5 Mg/3 Ml Nebu IH Q3HRT PRN Shortness Of Breath Docusate Sodium 100 mg 06/02/21 10:00 06/08/21 21:02 Docusate Sodium 100 Mg Cap PO 100 mg BID KRISTIN Administration Fluconazole 100 mg 06/05/21 10:00 06/08/21 10:00 Fluconazole 100 Mg Tab PO 06/11/21 10:01 100 mg QDAY KRISTIN Administration Protocol Heparin Sodium (Porcine) 5,000 unit 06/02/21 10:00 06/08/21 21:01 Heparin 5,000 Unit/1 Ml Vial SUB-Q 5,000 unit Q12HR KRISTIN Administration Hydralazine HCl 25 mg 06/08/21 22:00 06/09/21 05:23 Hydralazine 25 Mg Tab PO 25 mg Q8HR KRISTIN Administration Hydralazine HCl 10 mg 06/08/21 13:19 Hydralazine 20 Mg/1 Ml Inj IV Q4H PRN Hypertension Dextrose/Sodium Chloride 1,000 mls @ 75 mls/hr 06/03/21 10:00 06/09/21 06:37 D5/0.45ns IV 75 mls/hr DIRECT KRISTIN Administration Levetiracetam 500 mg 06/07/21 22:00 06/08/21 21:02 Levetiracetam 500 Mg Tab PO 500 mg BID KRISTIN Administration Levothyroxine Sodium 75 mcg 06/02/21 06:00 06/09/21 05:23 Levothyroxine 75 Mcg Tab PO 75 mcg DAILY@0600 KRISTIN Administration Naloxone HCl 0.1 mg 06/02/21 00:35 Naloxone 0.4 Mg/1 Ml Inj IV Q2MIN PRN Res Rate </= 8 or 02 SAT < 92% Ondansetron HCl 4 mg 06/02/21 00:31 Ondansetron 4 Mg/2 Ml Inj IV Q6H PRN Nausea And Vomiting Oxycodone/Acetaminophen 1 tab 06/02/21 00:35 06/04/21 09:35 Oxycodone /Acetaminophen 5-325mg Tab PO 1 tab Q6H PRN Administration Pain, Moderate (4-6) Pantoprazole Sodium 40 mg 06/08/21 10:00 06/09/21 08:20 Pantoprazole 40 Mg Tab PO 40 mg QDAC KRISTIN Administration Sodium Bicarbonate 1,300 mg 06/02/21 18:00 06/08/21 21:02 Sodium Bicarbonate 650 Mg Tab PO 1,300 mg BID KRISTIN Administration Sodium Chloride 10 ml 06/02/21 10:00 06/08/21 21:01 Sodium Chloride 0.9% 10 Ml Flush Syringe IV 10 ml BID KRISTIN Administration Sodium Chloride 10 ml 06/02/21 00:31 Sodium Chloride 0.9% 10 Ml Flush Syringe IV PRN PRN LINE FLUSH Nutrition/Malnutrition Assess - Dietary Evaluation Nutrition/Malnutrition Findings: Nutrition Notes Start: 06/02/21 10:10 Freq: Status: Active Protocol: Document 06/08/21 13:08 CW (Rec: 06/08/21 13:12 CW [id number]) Nutrition Notes Initial or Follow up Reassessment Current Diagnosis Acute Kidney Injury,Stroke Other Pertinent Diagnosis seizure, cirrhosis, liver mass , metastatic carinoma, anemia, debility, UTI Current Diet cardiac Mechanical soft Labs/Tests no new labs Pertinent Medications Colace D5 1/2 NS Height 5 ft Weight 83 kg [place] Body Weight (kg) 45.45 BMI 35.7 Weight Status Obese Subjective/Other Information [facility]. Pt did not eat lunch and states that she is not hungry. Pt also states that she does not want to drink ONS . Recommend appetite stimulant . Percent of energy/protein needs met: 0%/0% Burn Absent Trauma Absent GI Symptoms None Difficulty In Chewing Skin Integrity/Comment multiple pressure ulcer present Minimum of two criteria No Energy Intake (severe) < or equal to 50% Estimated Energy Requirement > or equal to 5 days #2 Nutrition Diagnosis Increased nutrient needs ( specify in comment below) Comments: protein Etiology wound healing As Evidenced by Signs and Symptoms pressure ulcers present #1 Nutrition Diagnosis Inadequate oral intake Diagnosis Progress(for reassessment Continues documentation) Is patient on ventilator? No Is Patient Ambulatory and/or Out of Bed No REE-([place]-confined to bed) 1472.484 Kcal/Kg value to use for calculation 15 Approximate Energy Requirements Using 1245 kcal/Kg Calculation Used for Recommendations Kcal/kg Additional Notes protein needs:55 - 68g (1.2 - 1.5 g/kgIBW) Fluid needs: 1 ml/kcal Nutrition Intervention Change Diet Order: Continue current diet Add Supplement/Snack (indicate name/kcal Ensure Enlive BID /protein ) Provides kCal: 700 Provides Protein (gm) 40 Goal #1 Meet at least 75% of kcal and protein needs via PO Goal #2 wound healing Anticipated Discharge Needs: Cardiac Mechanical Soft Diet with ONS PRN Follow-Up By: 06/10/21 Additional Comments f/u for intakes/ ONS tolerance
[2021-06-09] MEDS: levETIRAcetam 500 MG TAB PO SCH ×2 (10:25→22:44)
[2021-06-09] MEDS: SODIUM BICARBONATE 650 MG TAB PO SCH ×2 (10:25→22:44)
[2021-06-09] MEDS: DOCUSATE SODIUM 100 MG CAP PO SCH ×2 (10:25→22:44)
[2021-06-09] MEDS: HEPARIN 5,000 UNIT/1 ML VIAL SUB-Q SCH ×2 (10:25→22:45)
[2021-06-09] MEDS: FLUCONAZOLE 100 MG TAB PO SCH (10:29)
--- NOTE | 2021-06-09 12:12 | Progress Note ---
Assessment and Plan - Patient Problems (1) MITCH (acute kidney injury) Current Visit: Yes Status: Acute Plan to address problem: Renal function showing steady improvement with IVF hydration and treatment of UTI. Will monitor closely. (2) Metabolic acidosis Current Visit: Yes Status: Acute Plan to address problem: Continue current sodium bicarbonate supplementation. (3) Hyperkalemia Current Visit: Yes Status: Acute Plan to address problem: In the setting of MITCH. Showing improvement. (4) Urinary tract infection Current Visit: Yes Status: Acute Plan to address problem: Evidence of aide growth notes in urine culture, continues on diflucan therapy. Subjective Date of service: 06/09/21 Principal diagnosis: MITCH Interval history: no acute events reported overnight. Renal function is showing improvement. Objective - Vital Signs Vital signs: Vital Signs - 12hr 06/09/21 06/09/21 06/09/21 03:27 04:00 07:28 Temperature 97.4 F L 99.2 F Pulse Rate 98 H 86 93 H Respiratory 18 20 Rate Blood Pressure 163/77 145/70 O2 Sat by Pulse 89 99 Oximetry 06/09/21 08:36 Temperature Pulse Rate 93 H Respiratory Rate Blood Pressure O2 Sat by Pulse Oximetry - General Appearance General appearance: appears stated age EENT: ATNC Neck: no JVD Respiratory: Present: Clear to Ascultation, Normal Exam Cardiology: regular Gastrointestinal: normal Integumentary: no rash Neurologic: no focal deficit Musculoskeletal: deferred Psychiatric: cooperative - Lab 06/03/21 04:22 06/08/21 15:14 Most recent lab results Calcium 9.0 mg/dL (8.4-10.2) 06/08/21 15:14 Magnesium 2.60 mg/dL (1.7-2.3) H 06/03/21 04:22 Urine Creatinine 105.1 mg/dL (0.1-20.0) H 06/03/21 13:26 Urine Sodium 39 mmol/L 06/03/21 13:26 Urine Total Protein 28 mg/dL (5-11.8) H 06/03/21 13:26 - Allied health notes Allied health notes reviewed: nursing Medications & Allergies - Medications Allergies/Adverse Reactions: Allergies No Known Allergies Allergy (Unverified 04/15/21 08:22) Home Medications: Home Medications Medication Instructions Recorded Confirmed Last Taken Type Gabapentin 100 mg PO BID 0206/05/21 04/14/21 History levETIRAcetam [Keppra TAB] 500 mg PO BID 11/28/16 06/05/21 04/14/21 21:00 History Torsemide [Demadex] 10 mg PO QDAY 12/26/20 06/05/21 04/14/21 History Pantoprazole [Protonix TAB] 20 mg PO QDAY tablet. 12/29/20 06/05/21 04/14/21 Rx Rifaximin [Xifaxan] 550 mg PO BID tablet 12/29/20 06/05/21 04/14/21 Rx oxyCODONE /ACETAMINOPHEN [Percocet 1 tab PO Q6H PRN #10 tablet 12/29/20 06/05/21 04/14/21 Rx 5/325 mg] Active Medications: Generic Name Dose Route Start Last Admin Trade Name Freq PRN Reason Stop Dose Admin Acetaminophen 650 mg 06/02/21 00:31 06/07/21 11:53 Acetaminophen 325 Mg Tab PO 650 mg Q4H PRN Administration Pain MILD(1-3)/Fever >100.5/GUEVARA Albuterol 2.5 mg 06/02/21 00:34 Albuterol 2.5 Mg/3 Ml Nebu IH Q3HRT PRN Shortness Of Breath Docusate Sodium 100 mg 06/02/21 10:00 06/09/21 10:25 Docusate Sodium 100 Mg Cap PO 100 mg BID KRISTIN Administration Fluconazole 100 mg 06/05/21 10:00 06/09/21 10:29 Fluconazole 100 Mg Tab PO 06/11/21 10:01 100 mg QDAY KRISTIN Administration Protocol Heparin Sodium (Porcine) 5,000 unit 06/02/21 10:00 06/09/21 10:25 Heparin 5,000 Unit/1 Ml Vial SUB-Q 5,000 unit Q12HR KRISTIN Administration Hydralazine HCl 25 mg 06/08/21 22:00 06/09/21 05:23 Hydralazine 25 Mg Tab PO 25 mg Q8HR KRISTIN Administration Hydralazine HCl 10 mg 06/08/21 13:19 Hydralazine 20 Mg/1 Ml Inj IV Q4H PRN Hypertension Dextrose/Sodium Chloride 1,000 mls @ 75 mls/hr 06/03/21 10:00 06/09/21 06:37 D5/0.45ns IV 75 mls/hr DIRECT KRISTIN Administration Levetiracetam 500 mg 06/07/21 22:00 06/09/21 10:25 Levetiracetam 500 Mg Tab PO 500 mg BID KRISTIN Administration Levothyroxine Sodium 75 mcg 06/02/21 06:00 06/09/21 05:23 Levothyroxine 75 Mcg Tab PO 75 mcg DAILY@0600 KRISTIN Administration Naloxone HCl 0.1 mg 06/02/21 00:35 Naloxone 0.4 Mg/1 Ml Inj IV Q2MIN PRN Res Rate </= 8 or 02 SAT < 92% Ondansetron HCl 4 mg 06/02/21 00:31 Ondansetron 4 Mg/2 Ml Inj IV Q6H PRN Nausea And Vomiting Oxycodone/Acetaminophen 1 tab 06/02/21 00:35 06/04/21 09:35 Oxycodone /Acetaminophen 5-325mg Tab PO 1 tab Q6H PRN Administration Pain, Moderate (4-6) Pantoprazole Sodium 40 mg 06/08/21 10:00 06/09/21 08:20 Pantoprazole 40 Mg Tab PO 40 mg QDAC KRISTIN Administration Sodium Bicarbonate 1,300 mg 06/02/21 18:00 06/09/21 10:25 Sodium Bicarbonate 650 Mg Tab PO 1,300 mg BID KRISTIN Administration Sodium Chloride 10 ml 06/02/21 10:00 06/09/21 10:25 Sodium Chloride 0.9% 10 Ml Flush Syringe IV 10 ml BID KRISTIN Administration Sodium Chloride 10 ml 06/02/21 00:31 Sodium Chloride 0.9% 10 Ml Flush Syringe IV PRN PRN LINE FLUSH
--- NOTE | 2021-06-09 18:48 | Progress Note ---
Assessment and Plan Assessment and plan: --Urinary tract infection Angela in urine, Continue Diflucan for total 7 days --Acute metabolic encephalopathy -CT head negative for acute abnormalities Multifactorial, dementia, probably UTI Treat the underlying cause, supportive care --Hyperkalemia; on admission 6.2 Resolved, patient received treatment Closely monitor electrolytes --Acute kidney injury ; present on admission Vasomotor nephropathy Gentle hydration, monitor renal function, avoid nephrotoxin Creatinine trending down 4.1 - 2.0 Nephrology following, plenty of oral fluids --Elevated troponin/non-ST elevation DC type II No cardiac symptoms like chest pain or shortness of breath Cardiac enzymes trending down --Moderate malnutrition/hypoalbuminemia Albumin 3.0, nutrition supplements, supportive care Nutrition consult if needed --History of hypothyroidism Continue Synthroid 75 mcg daily --History of thrombocytopenia Closely monitor --History of liver mass/metastatic disease Outpatient follow-up with hematology oncology --History of stroke ; with residual weakness PT OT, possible home with home health on discharge --History of seizure; Seizure precautions, continue Keppra --DVT and GI PPx -On Protonix and heparin[caution thrombocytopenia] Significant improvement of renal function, creatinine today is 2.0 Nephrology following PT recommended subacute versus acute rehab placement DC planning per case management Closely monitor the patient and adjust management as needed Plan of care reviewed with the patient and her nurse Pending placement, patient is medically stable Daily hospital course: 06/03/2021: Patient is doing well. She is afebrile without acute GI symptoms. Patient denies dysuria abdominal pain lateral flank pain. MITCH is improving with IV fluids. Nephrology is following. 06/04/2021: Patient is doing well. MITCH progressively improving with IV fluids. Nephrology is following. Urine cultures grew yeast. Will discontinue Rocephin and start on Diflucan. Hopefully discharge soon with resolution of MITCH. 06/05/2021 : significant improvement of renal function, creatinine today is 2.0 Nephrology following PT recommended subacute versus acute rehab placement DC planning per case management 06/06/2021; Urine cultures positive for Angela Patient is on Diflucan DC planning per case management Subacute versus acute rehab placement 06/07/2021; Patient feels better receiving Diflucan for Angela UTI Case management assisting with placement subacute/SNF 06/08/21; Pending placement subacute vs SNF DC planning per case management Pending placement Patient is medically stable 06/09/2021; patient awaiting placement subacute versus SNF Paul PCR test sent Continue current management, continue Diflucan History Interval history: Seen and examined the patient at the bedside Patient's chart and medications reviewed Patient feels slightly better Receiving Diflucan Case management processing placement Hospitalist Physical - Constitutional Vitals: Temp Pulse Resp BP Pulse Ox 98.0 F 90 20 167/86 98 06/09/21 17:20 06/09/21 17:20 06/09/21 17:20 06/09/21 17:20 06/09/21 17:20 General appearance: Present: no acute distress, well-nourished - EENT Eyes: Present: PERRL, EOM intact - Neck Neck: Present: supple, normal ROM - Respiratory Respiratory effort: normal Respiratory: bilateral: diminished, negative: rales, rhonchi, wheezing - Cardiovascular Rhythm: regular Heart Sounds: Present: S1 & S2 - Extremities Extremities: no ischemia, No edema - Abdominal General gastrointestinal: soft, non-tender, non-distended, normal bowel sounds - Integumentary Integumentary: Present: clear, warm - Psychiatric Psychiatric: appropriate mood/affect, cooperative - Neurologic Neurologic: CNII-XII intact, moves all extremities HEART Score - HEART Score Troponin: Troponin T 0.029 ng/mL (0.00-0.029) 06/02/21 05:53 Results - Labs CBC & Chem 7: 06/03/21 04:22 06/08/21 15:14 Labs: Laboratory Last Values WBC 4.1 K/mm3 (4.5-11.0) L 06/03/21 04:22 RBC 3.03 M/mm3 (3.65-5.03) L 06/03/21 04:22 Hgb 9.0 gm/dl (10.1-14.3) L 06/03/21 04:22 Hct 27.2 % (30.3-42.9) L 06/03/21 04:22 MCV 90 fl (79-97) 06/03/21 04:22 MCH 30 pg (28-32) 06/03/21 04:22 MCHC 33 % (30-34) 06/03/21 04:22 RDW 16.5 % (13.2-15.2) H 06/03/21 04:22 Plt Count 106 K/mm3 (140-440) L 06/03/21 04:22 Lymph % (Auto) 32.2 % (13.4-35.0) 06/01/21 20:38 [place] % (Auto) Hedis Review Nurse 06/03/21 04:22 Eos % (Auto) 1.1 % (0.0-4.3) 06/01/21 20:38 Baso % (Auto) 0.3 % (0.0-1.8) 06/01/21 20:38 Lymph # (Auto) 2.2 K/mm3 (1.2-5.4) 06/01/21 20:38 [place] # (Auto) 0.9 K/mm3 (0.0-0.8) H 06/01/21 20:38 Eos # (Auto) 0.1 K/mm3 (0.0-0.4) 06/01/21 20:38 Baso # (Auto) 0.0 K/mm3 (0.0-0.1) 06/01/21 20:38 Add Manual Diff Complete 06/03/21 04:22 Total Counted 100 06/03/21 04:22 Seg Neutrophils % 53.2 % (40.0-70.0) 06/01/21 20:38 Seg Neuts % (Manual) 66.0 % (40.0-70.0) 06/03/21 04:22 Lymphocytes % (Manual) 22.0 % (13.4-35.0) 06/03/21 04:22 Reactive Lymphs % (Man) 1.0 % 06/03/21 04:22 Monocytes % (Manual) 6.0 % (0.0-7.3) 06/03/21 04:22 Eosinophils % (Manual) 4.0 % (0.0-4.3) 06/03/21 04:22 Basophils % (Manual) 1.0 % (0.0-1.8) 06/03/21 04:22 Nucleated RBC % Not Reportable 06/03/21 04:22 Seg Neutrophils # 3.6 K/mm3 (1.8-7.7) 06/01/21 20:38 Seg Neutrophils # Man 2.7 K/mm3 (1.8-7.7) 06/03/21 04:22 Band Neutrophils # 0.0 K/mm3 06/03/21 04:22 Lymphocytes # (Manual) 0.9 K/mm3 (1.2-5.4) L 06/03/21 04:22 Abs React Lymphs (Man) 0.0 K/mm3 06/03/21 04:22 Monocytes # (Manual) 0.2 K/mm3 (0.0-0.8) 06/03/21 04:22 Eosinophils # (Manual) 0.2 K/mm3 (0.0-0.4) 06/03/21 04:22 Basophils # (Manual) 0.0 K/mm3 (0.0-0.1) 06/03/21 04:22 Metamyelocytes # 0.0 K/mm3 06/03/21 04:22 Myelocytes # 0.0 K/mm3 06/03/21 04:22 Promyelocytes # 0.0 K/mm3 06/03/21 04:22 Blast Cells # 0.0 K/mm3 06/03/21 04:22 WBC Morphology Not Reportable 06/03/21 04:22 Hypersegmented Neuts Not Reportable 06/03/21 04:22 Hyposegmented Neuts Not Reportable 06/03/21 04:22 Hypogranular Neuts Not Reportable 06/03/21 04:22 Smudge Cells Not Reportable 06/03/21 04:22 Toxic Granulation Not Reportable 06/03/21 04:22 Toxic Vacuolation Not Reportable 06/03/21 04:22 Dohle Bodies Not Reportable 06/03/21 04:22 Pelger-Huet Anomaly Not Reportable 06/03/21 04:22 Wilmer Rods Not Reportable 06/03/21 04:22 Platelet Estimate Consistent w auto 06/03/21 04:22 Clumped Platelets Not Reportable 06/03/21 04:22 Plt Clumps, EDTA Not Reportable 06/03/21 04:22 Large Platelets Not Reportable 06/03/21 04:22 Giant Platelets Not Reportable 06/03/21 04:22 Platelet Satelliting Not Reportable 06/03/21 04:22 Plt Morphology Comment Not Reportable 06/03/21 04:22 RBC Morphology Not Reportable 06/03/21 04:22 Dimorphic RBCs Not Reportable 06/03/21 04:22 Polychromasia Not Reportable 06/03/21 04:22 Hypochromasia Few 06/03/21 04:22 Poikilocytosis Not Reportable 06/03/21 04:22 Anisocytosis 1+ 06/03/21 04:22 Microcytosis Not Reportable 06/03/21 04:22 Macrocytosis Not Reportable 06/03/21 04:22 Spherocytes Not Reportable 06/03/21 04:22 Pappenheimer Bodies Not Reportable 06/03/21 04:22 Sickle Cells Not Reportable 06/03/21 04:22 Target Cells Not Reportable 06/03/21 04:22 Tear Drop Cells Not Reportable 06/03/21 04:22 Ovalocytes Few 06/03/21 04:22 Helmet Cells Not Reportable 06/03/21 04:22 [place] Bodies Not Reportable 06/03/21 04:22 [place] Rings Not Reportable 06/03/21 04:22 Greg Cells Not Reportable 06/03/21 04:22 Bite Cells Not Reportable 06/03/21 04:22 Crenated Cell Not Reportable 06/03/21 04:22 Elliptocytes Not Reportable 06/03/21 04:22 Acanthocytes (Spur) Not Reportable 06/03/21 04:22 Rouleaux Not Reportable 06/03/21 04:22 Hemoglobin C Crystals Not Reportable 06/03/21 04:22 Schistocytes Not Reportable 06/03/21 04:22 Malaria parasites Not Reportable 06/03/21 04:22 Al Bodies Not Reportable 06/03/21 04:22 Hem Pathologist Commnt No 06/03/21 04:22 PT 15.4 Sec. (12.2-14.9) H 06/01/21 20:38 INR 1.16 (0.87-1.13) H 06/01/21 20:38 Sodium 141 mmol/L (137-145) 06/08/21 15:14 Potassium 4.8 mmol/L (3.6-5.0) 06/08/21 15:14 Chloride 112.7 mmol/L (98-107) H 06/08/21 15:14 Carbon Dioxide 21 mmol/L (22-30) L 06/08/21 15:14 Anion Gap 12 mmol/L 06/08/21 15:14 BUN 15 mg/dL (7-17) 06/08/21 15:14 Creatinine 1.4 mg/dL (0.6-1.2) H 06/08/21 15:14 Estimated GFR 44 ml/min 06/08/21 15:14 BUN/Creatinine Ratio 11 % 06/08/21 15:14 Glucose 96 mg/dL (65-100) 06/08/21 15:14 POC Glucose 89 mg/dL (70-105) 06/02/21 03:01 Lactic Acid 1.10 mmol/L (0.7-2.0) 06/01/21 23:59 Calcium 9.0 mg/dL (8.4-10.2) 06/08/21 15:14 Magnesium 2.60 mg/dL (1.7-2.3) H 06/03/21 04:22 Total Bilirubin 0.50 mg/dL (0.1-1.2) 06/03/21 04:22 AST 25 units/L (5-40) 06/03/21 04:22 ALT 13 units/L (7-56) 06/03/21 04:22 Alkaline Phosphatase 73 units/L (35-129) 06/03/21 04:22 Ammonia 31.0 umol/L (25-60) 06/01/21 20:38 Total Creatine Kinase 41 units/L (30-135) 06/01/21 20:38 Troponin T 0.029 ng/mL (0.00-0.029) 06/02/21 05:53 Total Protein 7.4 g/dL (6.3-8.2) 06/03/21 04:22 Albumin 2.6 g/dL (3.9-5) L 06/03/21 04:22 Albumin/Globulin Ratio 0.5 % 06/03/21 04:22 Triglycerides 64 mg/dL (2-149) 06/01/21 20:38 Cholesterol 95 mg/dL (50-199) 06/01/21 20:38 LDL Cholesterol Direct 50 mg/dL (50-130) 06/01/21 20:38 HDL Cholesterol 34 mg/dL (40-59) L 06/01/21 20:38 Cholesterol/HDL Ratio 2.79 % 06/01/21 20:38 TSH 0.230 mlU/mL (0.270-4.200) L 06/01/21 20:38 Free T4 1.43 ng/dL (0.76-1.46) 06/02/21 01:04 Thyroxine (T4) 10.4 ug/dL (4.0-12.0) 06/02/21 01:04 Urine Color Yellow (Yellow) 06/01/21 Unknown Urine Turbidity Turbid (Clear) 06/01/21 Unknown Urine pH 5.0 (5.0-7.0) 06/01/21 Unknown Ur Specific [place] 1.013 (1.003-1.030) 06/01/21 Unknown Urine Protein 100 mg/dl mg/dL (Negative) 06/01/21 Unknown Urine Glucose (UA) Neg mg/dL (Negative) 06/01/21 Unknown Urine Ketones Neg mg/dL (Negative) 06/01/21 Unknown Urine Blood Lg (Negative) 06/01/21 Unknown Urine Nitrite Neg (Negative) 06/01/21 Unknown Urine Bilirubin Neg (Negative) 06/01/21 Unknown Urine Urobilinogen < 2.0 mg/dL (<2.0) 06/01/21 Unknown Ur Leukocyte Esterase Mod (Negative) 06/01/21 Unknown Urine WBC (Auto) > 182.0 /HPF (0.0-6.0) H 06/01/21 Unknown Urine RBC (Auto) 174.0 /HPF (0.0-6.0) 06/01/21 Unknown U Epithel Cells (Auto) 32.0 /HPF (0-13.0) H 06/01/21 Unknown Urine Bacteria (Auto) 4+ /HPF (Negative) 06/01/21 Unknown Urine WBC Clumps 3+ /HPF 06/01/21 Unknown Urine Yeast (Budding) 3+ /HPF 06/01/21 Unknown Urine Creatinine 105.1 mg/dL (0.1-20.0) H 06/03/21 13:26 Urine Sodium 39 mmol/L 06/03/21 13:26 Urine Total Protein 28 mg/dL (5-11.8) H 06/03/21 13:26 Coronavirus (PCR) Positive (Negative) A 06/08/21 08:50 Fitzpatrick/IV: Voiding Method Indwelling Catheter Active Medications - Current Medications Current Medications: Generic Name Dose Route Start Last Admin Trade Name Freq PRN Reason Stop Dose Admin Acetaminophen 650 mg 06/02/21 00:31 06/07/21 11:53 Acetaminophen 325 Mg Tab PO 650 mg Q4H PRN Administration Pain MILD(1-3)/Fever >100.5/GUEVARA Albuterol 2.5 mg 06/02/21 00:34 Albuterol 2.5 Mg/3 Ml Nebu IH Q3HRT PRN Shortness Of Breath Docusate Sodium 100 mg 06/02/21 10:00 06/09/21 10:25 Docusate Sodium 100 Mg Cap PO 100 mg BID KRISTIN Administration Fluconazole 100 mg 06/05/21 10:00 06/09/21 10:29 Fluconazole 100 Mg Tab PO 06/11/21 10:01 100 mg QDAY KRISTIN Administration Protocol Heparin Sodium (Porcine) 5,000 unit 06/02/21 10:00 06/09/21 10:25 Heparin 5,000 Unit/1 Ml Vial SUB-Q 5,000 unit Q12HR KRISTIN Administration Hydralazine HCl 25 mg 06/08/21 22:00 06/09/21 15:11 Hydralazine 25 Mg Tab PO 25 mg Q8HR KRISTIN Administration Hydralazine HCl 10 mg 06/08/21 13:19 Hydralazine 20 Mg/1 Ml Inj IV Q4H PRN Hypertension Dextrose/Sodium Chloride 1,000 mls @ 75 mls/hr 06/03/21 10:00 06/09/21 06:37 D5/0.45ns IV 75 mls/hr DIRECT KRISTIN Administration Levetiracetam 500 mg 06/07/21 22:00 06/09/21 10:25 Levetiracetam 500 Mg Tab PO 500 mg BID KRISTIN Administration Levothyroxine Sodium 75 mcg 06/02/21 06:00 06/09/21 05:23 Levothyroxine 75 Mcg Tab PO 75 mcg DAILY@0600 KRISTIN Administration Naloxone HCl 0.1 mg 06/02/21 00:35 Naloxone 0.4 Mg/1 Ml Inj IV Q2MIN PRN Res Rate </= 8 or 02 SAT < 92% Ondansetron HCl 4 mg 06/02/21 00:31 Ondansetron 4 Mg/2 Ml Inj IV Q6H PRN Nausea And Vomiting Oxycodone/Acetaminophen 1 tab 06/02/21 00:35 06/04/21 09:35 Oxycodone /Acetaminophen 5-325mg Tab PO 1 tab Q6H PRN Administration Pain, Moderate (4-6) Pantoprazole Sodium 40 mg 06/08/21 10:00 06/09/21 08:20 Pantoprazole 40 Mg Tab PO 40 mg QDAC KRISTIN Administration Sodium Bicarbonate 1,300 mg 06/02/21 18:00 06/09/21 10:25 Sodium Bicarbonate 650 Mg Tab PO 1,300 mg BID KRISTIN Administration Sodium Chloride 10 ml 06/02/21 10:00 06/09/21 10:25 Sodium Chloride 0.9% 10 Ml Flush Syringe IV 10 ml BID KRISTIN Administration Sodium Chloride 10 ml 06/02/21 00:31 Sodium Chloride 0.9% 10 Ml Flush Syringe IV PRN PRN LINE FLUSH Nutrition/Malnutrition Assess - Dietary Evaluation Nutrition/Malnutrition Findings: Nutrition Notes Start: 06/02/21 10:10 Freq: Status: Active Protocol: Document 06/08/21 13:08 CW (Rec: 06/08/21 13:12 CW [id number]) Nutrition Notes Initial or Follow up Reassessment Current Diagnosis Acute Kidney Injury,Stroke Other Pertinent Diagnosis seizure, cirrhosis, liver mass , metastatic carinoma, anemia, debility, UTI Current Diet cardiac Mechanical soft Labs/Tests no new labs Pertinent Medications Colace D5 1/2 NS Height 5 ft Weight 83 kg [place] Body Weight (kg) 45.45 BMI 35.7 Weight Status Obese Subjective/Other Information Pt whith lunch at [facility] and Ens[employer]. Pt did not eat lunch and states that she is not hungry. Pt also states that she does not want to drink ONS . Recommend appetite stimulant . Percent of energy/protein needs met: 0%/0% Burn Absent Trauma Absent GI Symptoms None Difficulty In Chewing Skin Integrity/Comment multiple pressure ulcer present Minimum of two criteria No Energy Intake (severe) < or equal to 50% Estimated Energy Requirement > or equal to 5 days #2 Nutrition Diagnosis Increased nutrient needs ( specify in comment below) Comments: protein Etiology wound healing As Evidenced by Signs and Symptoms pressure ulcers present #1 Nutrition Diagnosis Inadequate oral intake Diagnosis Progress(for reassessment Continues documentation) Is patient on ventilator? No Is Patient Ambulatory and/or Out of Bed No REE-([place]-confined to bed) 1472.484 Kcal/Kg value to use for calculation 15 Approximate Energy Requirements Using 1245 kcal/Kg Calculation Used for Recommendations Kcal/kg Additional Notes protein needs:55 - 68g (1.2 - 1.5 g/kgIBW) Fluid needs: 1 ml/kcal Nutrition Intervention Change Diet Order: Continue current diet Add Supplement/Snack (indicate name/kcal Ensure Enlive BID /protein ) Provides kCal: 700 Provides Protein (gm) 40 Goal #1 Meet at least 75% of kcal and protein needs via PO Goal #2 wound healing Anticipated Discharge Needs: Cardiac Mechanical Soft Diet with ONS PRN Follow-Up By: 06/10/21 Additional Comments f/u for intakes/ ONS tolerance
[2021-06-09] MEDS: oxyCODONE /ACETAMINOPHEN 5-325MG TAB PO PRN (23:00)
[2021-06-10] MEDS: PANTOPRAZOLE 40 MG TAB PO SCH (06:51)
[2021-06-10] MEDS: hydrALAZINE 25 MG TAB PO SCH ×3 (06:51→22:35)
[2021-06-10] MEDS: LEVOTHYROXINE 75 MCG TAB PO SCH (06:51)
--- NOTE | 2021-06-10 09:13 | Progress Note ---
Assessment and Plan Assessment and plan: --COVID-19 positive; 06/09/2021 Continue droplet and contact isolation check inflammatory markers, and consult ID in the morning Continue supportive care Oxygen evaluation if hypoxia start dexamethasone No remdesivir due to acute kidney injury Home O2 evaluation at discharge --Urinary tract infection Angela in urine, Continue Diflucan for total 7 days --Acute metabolic encephalopathy -CT head negative for acute abnormalities Multifactorial, dementia, probably UTI Treat the underlying cause, supportive care --Hyperkalemia; on admission 6.2 Resolved, patient received treatment Closely monitor electrolytes --Acute kidney injury ; present on admission Vasomotor nephropathy Gentle hydration, monitor renal function, avoid nephrotoxin Creatinine trending down 4.1 - 2.0 Nephrology following, plenty of oral fluids --Elevated troponin/non-ST elevation MA type II No cardiac symptoms like chest pain or shortness of breath Cardiac enzymes trending down --Moderate malnutrition/hypoalbuminemia Albumin 3.0, nutrition supplements, supportive care Nutrition consult if needed --History of hypothyroidism Continue Synthroid 75 mcg daily --History of thrombocytopenia Closely monitor --History of liver mass/metastatic disease Outpatient follow-up with hematology oncology --History of stroke ; with residual weakness PT OT, possible home with home health on discharge --History of seizure; Seizure precautions, continue Keppra --DVT and GI PPx -On Protonix and heparin[caution thrombocytopenia] Significant improvement of renal function, creatinine today is 2.0 Nephrology following PT recommended subacute versus acute rehab placement DC planning per case management Closely monitor the patient and adjust management as needed Plan of care reviewed with the patient and her nurse Pending placement, patient is medically stable Daily hospital course: 06/03/2021: Patient is doing well. She is afebrile without acute GI symptoms. Patient denies dysuria abdominal pain lateral flank pain. MITCH is improving with IV fluids. Nephrology is following. 06/04/2021: Patient is doing well. MITCH progressively improving with IV fluids. Nephrology is following. Urine cultures grew yeast. Will discontinue Rocephin and start on Diflucan. Hopefully discharge soon with resolution of MITCH. 06/05/2021 : significant improvement of renal function, creatinine today is 2.0 Nephrology following PT recommended subacute versus acute rehab placement DC planning per case management 06/06/2021; Urine cultures positive for Angela Patient is on Diflucan DC planning per case management Subacute versus acute rehab placement 06/07/2021; Patient feels better receiving Diflucan for Angela UTI Case management assisting with placement subacute/SNF 06/08/21; Pending placement subacute vs SNF DC planning per case management Pending placement Patient is medically stable 06/09/2021; patient awaiting placement subacute versus SNF Paul PCR test sent Continue current management, continue Diflucan 06/10/2021; patient is Covid positive Isolation, O2 evaluation, no remdesivir due to acute kidney injury Follow ID evaluation and recommendations History Interval history: I seen and examined the patient at the bedside Isolation precautions PPE protocols followed Patient complains of mild shortness of breath and generalized weakness Vital signs noted Hospitalist Physical - Constitutional Vitals: Temp Pulse Resp BP Pulse Ox 97.7 F 82 16 169/85 98 06/09/21 22:16 06/09/21 22:44 06/09/21 22:16 06/09/21 22:44 06/09/21 22:16 General appearance: Present: no acute distress, well-nourished - EENT Eyes: Present: PERRL, EOM intact - Neck Neck: Present: supple, normal ROM - Respiratory Respiratory effort: normal Respiratory: bilateral: diminished, rhonchi, negative: rales, wheezing - Cardiovascular Rhythm: regular Heart Sounds: Present: S1 & S2 - Extremities Extremities: no ischemia, pulses intact - Abdominal General gastrointestinal: soft, non-tender, non-distended, normal bowel sounds - Integumentary Integumentary: Present: clear, warm - Psychiatric Psychiatric: appropriate mood/affect, cooperative - Neurologic Neurologic: moves all extremities HEART Score - HEART Score Troponin: Troponin T 0.029 ng/mL (0.00-0.029) 06/02/21 05:53 Results - Labs CBC & Chem 7: 06/03/21 04:22 06/08/21 15:14 Labs: Laboratory Last Values WBC 4.1 K/mm3 (4.5-11.0) L 06/03/21 04:22 RBC 3.03 M/mm3 (3.65-5.03) L 06/03/21 04:22 Hgb 9.0 gm/dl (10.1-14.3) L 06/03/21 04:22 Hct 27.2 % (30.3-42.9) L 06/03/21 04:22 MCV 90 fl (79-97) 06/03/21 04:22 MCH 30 pg (28-32) 06/03/21 04:22 MCHC 33 % (30-34) 06/03/21 04:22 RDW 16.5 % (13.2-15.2) H 06/03/21 04:22 Plt Count 106 K/mm3 (140-440) L 06/03/21 04:22 Lymph % (Auto) 32.2 % (13.4-35.0) 06/01/21 20:38 Towns % (Auto) Advertising Supervisor 06/03/21 04:22 Eos % (Auto) 1.1 % (0.0-4.3) 06/01/21 20:38 Baso % (Auto) 0.3 % (0.0-1.8) 06/01/21 20:38 Lymph # (Auto) 2.2 K/mm3 (1.2-5.4) 06/01/21 20:38 Towns # (Auto) 0.9 K/mm3 (0.0-0.8) H 06/01/21 20:38 Eos # (Auto) 0.1 K/mm3 (0.0-0.4) 06/01/21 20:38 Baso # (Auto) 0.0 K/mm3 (0.0-0.1) 06/01/21 20:38 Add Manual Diff Complete 06/03/21 04:22 Total Counted 100 06/03/21 04:22 Seg Neutrophils % 53.2 % (40.0-70.0) 06/01/21 20:38 Seg Neuts % (Manual) 66.0 % (40.0-70.0) 06/03/21 04:22 Lymphocytes % (Manual) 22.0 % (13.4-35.0) 06/03/21 04:22 Reactive Lymphs % (Man) 1.0 % 06/03/21 04:22 Monocytes % (Manual) 6.0 % (0.0-7.3) 06/03/21 04:22 Eosinophils % (Manual) 4.0 % (0.0-4.3) 06/03/21 04:22 Basophils % (Manual) 1.0 % (0.0-1.8) 06/03/21 04:22 Nucleated RBC % Not Reportable 06/03/21 04:22 Seg Neutrophils # 3.6 K/mm3 (1.8-7.7) 06/01/21 20:38 Seg Neutrophils # Man 2.7 K/mm3 (1.8-7.7) 06/03/21 04:22 Band Neutrophils # 0.0 K/mm3 06/03/21 04:22 Lymphocytes # (Manual) 0.9 K/mm3 (1.2-5.4) L 06/03/21 04:22 Abs React Lymphs (Man) 0.0 K/mm3 06/03/21 04:22 Monocytes # (Manual) 0.2 K/mm3 (0.0-0.8) 06/03/21 04:22 Eosinophils # (Manual) 0.2 K/mm3 (0.0-0.4) 06/03/21 04:22 Basophils # (Manual) 0.0 K/mm3 (0.0-0.1) 06/03/21 04:22 Metamyelocytes # 0.0 K/mm3 06/03/21 04:22 Myelocytes # 0.0 K/mm3 06/03/21 04:22 Promyelocytes # 0.0 K/mm3 06/03/21 04:22 Blast Cells # 0.0 K/mm3 06/03/21 04:22 WBC Morphology Not Reportable 06/03/21 04:22 Hypersegmented Neuts Not Reportable 06/03/21 04:22 Hyposegmented Neuts Not Reportable 06/03/21 04:22 Hypogranular Neuts Not Reportable 06/03/21 04:22 Smudge Cells Not Reportable 06/03/21 04:22 Toxic Granulation Not Reportable 06/03/21 04:22 Toxic Vacuolation Not Reportable 06/03/21 04:22 Dohle Bodies Not Reportable 06/03/21 04:22 Pelger-Huet Anomaly Not Reportable 06/03/21 04:22 Wilmer Rods Not Reportable 06/03/21 04:22 Platelet Estimate Consistent w auto 06/03/21 04:22 Clumped Platelets Not Reportable 06/03/21 04:22 Plt Clumps, EDTA Not Reportable 06/03/21 04:22 Large Platelets Not Reportable 06/03/21 04:22 Giant Platelets Not Reportable 06/03/21 04:22 Platelet Satelliting Not Reportable 06/03/21 04:22 Plt Morphology Comment Not Reportable 06/03/21 04:22 RBC Morphology Not Reportable 06/03/21 04:22 Dimorphic RBCs Not Reportable 06/03/21 04:22 Polychromasia Not Reportable 06/03/21 04:22 Hypochromasia Few 06/03/21 04:22 Poikilocytosis Not Reportable 06/03/21 04:22 Anisocytosis 1+ 06/03/21 04:22 Microcytosis Not Reportable 06/03/21 04:22 Macrocytosis Not Reportable 06/03/21 04:22 Spherocytes Not Reportable 06/03/21 04:22 Pappenheimer Bodies Not Reportable 06/03/21 04:22 Sickle Cells Not Reportable 06/03/21 04:22 Target Cells Not Reportable 06/03/21 04:22 Tear Drop Cells Not Reportable 06/03/21 04:22 Ovalocytes Few 06/03/21 04:22 Helmet Cells Not Reportable 06/03/21 04:22 [place] Bodies Not Reportable 06/03/21 04:22 [place] Rings Not Reportable 06/03/21 04:22 Greg Cells Not Reportable 06/03/21 04:22 Bite Cells Not Reportable 06/03/21 04:22 Crenated Cell Not Reportable 06/03/21 04:22 Elliptocytes Not Reportable 06/03/21 04:22 Acanthocytes (Spur) Not Reportable 06/03/21 04:22 Rouleaux Not Reportable 06/03/21 04:22 Hemoglobin C Crystals Not Reportable 06/03/21 04:22 Schistocytes Not Reportable 06/03/21 04:22 Malaria parasites Not Reportable 06/03/21 04:22 Al Bodies Not Reportable 06/03/21 04:22 Hem Pathologist Commnt No 06/03/21 04:22 PT 15.4 Sec. (12.2-14.9) H 06/01/21 20:38 INR 1.16 (0.87-1.13) H 06/01/21 20:38 Sodium 141 mmol/L (137-145) 06/08/21 15:14 Potassium 4.8 mmol/L (3.6-5.0) 06/08/21 15:14 Chloride 112.7 mmol/L (98-107) H 06/08/21 15:14 Carbon Dioxide 21 mmol/L (22-30) L 06/08/21 15:14 Anion Gap 12 mmol/L 06/08/21 15:14 BUN 15 mg/dL (7-17) 06/08/21 15:14 Creatinine 1.4 mg/dL (0.6-1.2) H 06/08/21 15:14 Estimated GFR 44 ml/min 06/08/21 15:14 BUN/Creatinine Ratio 11 % 06/08/21 15:14 Glucose 96 mg/dL (65-100) 06/08/21 15:14 POC Glucose 89 mg/dL (70-105) 06/02/21 03:01 Lactic Acid 1.10 mmol/L (0.7-2.0) 06/01/21 23:59 Calcium 9.0 mg/dL (8.4-10.2) 06/08/21 15:14 Magnesium 2.60 mg/dL (1.7-2.3) H 06/03/21 04:22 Total Bilirubin 0.50 mg/dL (0.1-1.2) 06/03/21 04:22 AST 25 units/L (5-40) 06/03/21 04:22 ALT 13 units/L (7-56) 06/03/21 04:22 Alkaline Phosphatase 73 units/L (35-129) 06/03/21 04:22 Ammonia 31.0 umol/L (25-60) 06/01/21 20:38 Total Creatine Kinase 41 units/L (30-135) 06/01/21 20:38 Troponin T 0.029 ng/mL (0.00-0.029) 06/02/21 05:53 Total Protein 7.4 g/dL (6.3-8.2) 06/03/21 04:22 Albumin 2.6 g/dL (3.9-5) L 06/03/21 04:22 Albumin/Globulin Ratio 0.5 % 06/03/21 04:22 Triglycerides 64 mg/dL (2-149) 06/01/21 20:38 Cholesterol 95 mg/dL (50-199) 06/01/21 20:38 LDL Cholesterol Direct 50 mg/dL (50-130) 06/01/21 20:38 HDL Cholesterol 34 mg/dL (40-59) L 06/01/21 20:38 Cholesterol/HDL Ratio 2.79 % 06/01/21 20:38 TSH 0.230 mlU/mL (0.270-4.200) L 06/01/21 20:38 Free T4 1.43 ng/dL (0.76-1.46) 06/02/21 01:04 Thyroxine (T4) 10.4 ug/dL (4.0-12.0) 06/02/21 01:04 Urine Color Yellow (Yellow) 06/01/21 Unknown Urine Turbidity Turbid (Clear) 06/01/21 Unknown Urine pH 5.0 (5.0-7.0) 06/01/21 Unknown Ur Specific [place] 1.013 (1.003-1.030) 06/01/21 Unknown Urine Protein 100 mg/dl mg/dL (Negative) 06/01/21 Unknown Urine Glucose (UA) Neg mg/dL (Negative) 06/01/21 Unknown Urine Ketones Neg mg/dL (Negative) 06/01/21 Unknown Urine Blood Lg (Negative) 06/01/21 Unknown Urine Nitrite Neg (Negative) 06/01/21 Unknown Urine Bilirubin Neg (Negative) 06/01/21 Unknown Urine Urobilinogen < 2.0 mg/dL (<2.0) 06/01/21 Unknown Ur Leukocyte Esterase Mod (Negative) 06/01/21 Unknown Urine WBC (Auto) > 182.0 /HPF (0.0-6.0) H 06/01/21 Unknown Urine RBC (Auto) 174.0 /HPF (0.0-6.0) 06/01/21 Unknown U Epithel Cells (Auto) 32.0 /HPF (0-13.0) H 06/01/21 Unknown Urine Bacteria (Auto) 4+ /HPF (Negative) 06/01/21 Unknown Urine WBC Clumps 3+ /HPF 06/01/21 Unknown Urine Yeast (Budding) 3+ /HPF 06/01/21 Unknown Urine Creatinine 105.1 mg/dL (0.1-20.0) H 06/03/21 13:26 Urine Sodium 39 mmol/L 06/03/21 13:26 Urine Total Protein 28 mg/dL (5-11.8) H 06/03/21 13:26 Coronavirus (PCR) Positive (Negative) A 06/08/21 08:50 Fitzpatrick/IV: Voiding Method External Female Catheter Active Medications - Current Medications Current Medications: Generic Name Dose Route Start Last Admin Trade Name Freq PRN Reason Stop Dose Admin Acetaminophen 650 mg 06/02/21 00:31 06/07/21 11:53 Acetaminophen 325 Mg Tab PO 650 mg Q4H PRN Administration Pain MILD(1-3)/Fever >100.5/GUEVARA Albuterol 2.5 mg 06/02/21 00:34 Albuterol 2.5 Mg/3 Ml Nebu IH Q3HRT PRN Shortness Of Breath Docusate Sodium 100 mg 06/02/21 10:00 06/09/21 22:44 Docusate Sodium 100 Mg Cap PO 100 mg BID KRISTIN Administration Fluconazole 100 mg 06/05/21 10:00 06/09/21 10:29 Fluconazole 100 Mg Tab PO 06/11/21 10:01 100 mg QDAY KRISTIN Administration Protocol Heparin Sodium (Porcine) 5,000 unit 06/02/21 10:00 06/09/21 22:45 Heparin 5,000 Unit/1 Ml Vial SUB-Q 5,000 unit Q12HR KRISTIN Administration Hydralazine HCl 25 mg 06/08/21 22:00 06/10/21 06:51 Hydralazine 25 Mg Tab PO 25 mg Q8HR KRISTIN Administration Hydralazine HCl 10 mg 06/08/21 13:19 Hydralazine 20 Mg/1 Ml Inj IV Q4H PRN Hypertension Dextrose/Sodium Chloride 1,000 mls @ 75 mls/hr 06/03/21 10:00 06/09/21 22:53 D5/0.45ns IV 75 mls/hr DIRECT KRISTIN Administration Levetiracetam 500 mg 06/07/21 22:00 06/09/21 22:44 Levetiracetam 500 Mg Tab PO 500 mg BID KRISTIN Administration Levothyroxine Sodium 75 mcg 06/02/21 06:00 06/10/21 06:51 Levothyroxine 75 Mcg Tab PO 75 mcg DAILY@0600 KRISTIN Administration Naloxone HCl 0.1 mg 06/02/21 00:35 Naloxone 0.4 Mg/1 Ml Inj IV Q2MIN PRN Res Rate </= 8 or 02 SAT < 92% Ondansetron HCl 4 mg 06/02/21 00:31 Ondansetron 4 Mg/2 Ml Inj IV Q6H PRN Nausea And Vomiting Oxycodone/Acetaminophen 1 tab 06/02/21 00:35 06/09/21 23:00 Oxycodone /Acetaminophen 5-325mg Tab PO 1 tab Q6H PRN Administration Pain, Moderate (4-6) Pantoprazole Sodium 40 mg 06/08/21 10:00 06/10/21 06:51 Pantoprazole 40 Mg Tab PO 40 mg QDAC KRISTIN Administration Sodium Bicarbonate 1,300 mg 06/02/21 18:00 06/09/21 22:44 Sodium Bicarbonate 650 Mg Tab PO 1,300 mg BID KRISTIN Administration Sodium Chloride 10 ml 06/02/21 10:00 06/09/21 22:45 Sodium Chloride 0.9% 10 Ml Flush Syringe IV 10 ml BID KRISTIN Administration Sodium Chloride 10 ml 06/02/21 00:31 Sodium Chloride 0.9% 10 Ml Flush Syringe IV PRN PRN LINE FLUSH Nutrition/Malnutrition Assess - Dietary Evaluation Nutrition/Malnutrition Findings: Nutrition Notes Start: 06/02/21 10:10 Freq: Status: Active Protocol: Document 06/08/21 13:08 CW (Rec: 06/08/21 13:12 CW [id number]) Nutrition Notes Initial or Follow up Reassessment Current Diagnosis Acute Kidney Injury,Stroke Other Pertinent Diagnosis seizure, cirrhosis, liver mass , metastatic carinoma, anemia, debility, UTI Current Diet cardiac Mechanical soft Labs/Tests no new labs Pertinent Medications Colace D5 1/2 NS Height 5 ft Weight 83 kg [place] Body Weight (kg) 45.45 BMI 35.7 Weight Status Obese Subjective/Other Information Pt whith lunch at [facility] and [employer]. Pt did not eat lunch and states that she is not hungry. Pt also states that she does not want to drink ONS . Recommend appetite stimulant . Percent of energy/protein needs met: 0%/0% Burn Absent Trauma Absent GI Symptoms None Difficulty In Chewing Skin Integrity/Comment multiple pressure ulcer present Minimum of two criteria No Energy Intake (severe) < or equal to 50% Estimated Energy Requirement > or equal to 5 days #2 Nutrition Diagnosis Increased nutrient needs ( specify in comment below) Comments: protein Etiology wound healing As Evidenced by Signs and Symptoms pressure ulcers present #1 Nutrition Diagnosis Inadequate oral intake Diagnosis Progress(for reassessment Continues documentation) Is patient on ventilator? No Is Patient Ambulatory and/or Out of Bed No REE-([facility]-confined to bed) 1472.484 Kcal/Kg value to use for calculation 15 Approximate Energy Requirements Using 1245 kcal/Kg Calculation Used for Recommendations Kcal/kg Additional Notes protein needs:55 - 68g (1.2 - 1.5 g/kgIBW) Fluid needs: 1 ml/kcal Nutrition Intervention Change Diet Order: Continue current diet Add Supplement/Snack (indicate name/kcal Ensure Enlive BID /protein ) Provides kCal: 700 Provides Protein (gm) 40 Goal #1 Meet at least 75% of kcal and protein needs via PO Goal #2 wound healing Anticipated Discharge Needs: Cardiac Mechanical Soft Diet with ONS PRN Follow-Up By: 06/10/21 Additional Comments f/u for intakes/ ONS tolerance
[2021-06-10] MEDS: FLUCONAZOLE 100 MG TAB PO SCH (09:35)
[2021-06-10] MEDS: DOCUSATE SODIUM 100 MG CAP PO SCH ×2 (09:35→22:35)
[2021-06-10] MEDS: HEPARIN 5,000 UNIT/1 ML VIAL SUB-Q SCH ×2 (09:35→22:35)
[2021-06-10] MEDS: SODIUM BICARBONATE 650 MG TAB PO SCH ×2 (09:35→22:35)
[2021-06-10] MEDS: levETIRAcetam 500 MG TAB PO SCH ×2 (09:36→22:37)
--- NOTE | 2021-06-10 09:42 | Progress Note ---
Assessment and Plan - Patient Problems (1) MITCH (acute kidney injury) Current Visit: Yes Status: Acute Plan to address problem: Renal function showing steady improvement with IVF hydration and treatment of UTI. Will monitor closely. (2) Metabolic acidosis Current Visit: Yes Status: Acute Plan to address problem: Continue current sodium bicarbonate supplementation. (3) Hyperkalemia Current Visit: Yes Status: Acute Plan to address problem: In the setting of MITCH. Showing improvement. (4) Urinary tract infection Current Visit: Yes Status: Acute Plan to address problem: Evidence of aide growth notes in urine culture, continues on diflucan therapy. (5) 2019 novel coronavirus detected Current Visit: Yes Status: Acute Plan to address problem: On appropriate isolation precautions. Asymptomatic at this time. Management per primary team. Subjective Date of service: 06/10/21 Principal diagnosis: MITCH Interval history: Patient now under isolation precautions as she has tested positive for COVID-19. No respiratory complaints otherwise and remains on room air per nursing staff. Objective - Exam Narrative Exam: Patient not examined directly in order to preserve PPE and decrease risk of transmission of COVID-19. Examination by primary team reviewed. - Vital Signs Vital signs: Vital Signs - 12hr 06/09/21 06/09/21 06/09/21 22:00 22:16 22:44 Temperature 97.7 F Pulse Rate 82 82 Pulse Rate [ 82 From Monitor] Respiratory 16 16 Rate Blood Pressure 169/85 169/85 O2 Sat by Pulse 98 98 Oximetry - Lab 06/03/21 04:22 06/08/21 15:14 Most recent lab results Calcium 9.0 mg/dL (8.4-10.2) 06/08/21 15:14 Magnesium 2.60 mg/dL (1.7-2.3) H 06/03/21 04:22 Urine Creatinine 105.1 mg/dL (0.1-20.0) H 06/03/21 13:26 Urine Sodium 39 mmol/L 06/03/21 13:26 Urine Total Protein 28 mg/dL (5-11.8) H 06/03/21 13:26 Medications & Allergies - Medications Allergies/Adverse Reactions: Allergies No Known Allergies Allergy (Unverified 04/15/21 08:22) Home Medications: Home Medications Medication Instructions Recorded Confirmed Last Taken Type Gabapentin 100 mg PO BID 11/28/16 06/05/21 04/14/21 History levETIRAcetam [Keppra TAB] 500 mg PO BID 11/28/16 06/05/21 04/14/21 21:00 History Torsemide [Demadex] 10 mg PO QDAY 12/26/20 06/05/21 04/14/21 History Pantoprazole [Protonix TAB] 20 mg PO QDAY tablet. 12/29/20 06/05/21 04/14/21 Rx Rifaximin [Xifaxan] 550 mg PO BID tablet 12/29/20 06/05/21 04/14/21 Rx oxyCODONE /ACETAMINOPHEN [Percocet 1 tab PO Q6H PRN #10 tablet 12/29/20 06/05/21 04/14/21 Rx 5/325 mg] Active Medications: Generic Name Dose Route Start Last Admin Trade Name Freq PRN Reason Stop Dose Admin Acetaminophen 650 mg 06/02/21 00:31 06/07/21 11:53 Acetaminophen 325 Mg Tab PO 650 mg Q4H PRN Administration Pain MILD(1-3)/Fever >100.5/GUEVARA Albuterol 2.5 mg 06/02/21 00:34 Albuterol 2.5 Mg/3 Ml Nebu IH Q3HRT PRN Shortness Of Breath Docusate Sodium 100 mg 06/02/21 10:00 06/10/21 09:35 Docusate Sodium 100 Mg Cap PO 100 mg BID KRISTIN Administration Fluconazole 100 mg 06/05/21 10:00 06/10/21 09:35 Fluconazole 100 Mg Tab PO 06/11/21 10:01 100 mg QDAY KRISTIN Administration Protocol Heparin Sodium (Porcine) 5,000 unit 06/02/21 10:00 06/10/21 09:35 Heparin 5,000 Unit/1 Ml Vial SUB-Q 5,000 unit Q12HR KRISTIN Administration Hydralazine HCl 25 mg 06/08/21 22:00 06/10/21 06:51 Hydralazine 25 Mg Tab PO 25 mg Q8HR KRISTIN Administration Hydralazine HCl 10 mg 06/08/21 13:19 Hydralazine 20 Mg/1 Ml Inj IV Q4H PRN Hypertension Dextrose/Sodium Chloride 1,000 mls @ 75 mls/hr 06/03/21 10:00 06/09/21 22:53 D5/0.45ns IV 75 mls/hr DIRECT KRISTIN Administration Levetiracetam 500 mg 06/07/21 22:00 06/10/21 09:36 Levetiracetam 500 Mg Tab PO 500 mg BID KRISTIN Administration Levothyroxine Sodium 75 mcg 06/02/21 06:00 06/10/21 06:51 Levothyroxine 75 Mcg Tab PO 75 mcg DAILY@0600 KRISTIN Administration Naloxone HCl 0.1 mg 06/02/21 00:35 Naloxone 0.4 Mg/1 Ml Inj IV Q2MIN PRN Res Rate </= 8 or 02 SAT < 92% Ondansetron HCl 4 mg 06/02/21 00:31 Ondansetron 4 Mg/2 Ml Inj IV Q6H PRN Nausea And Vomiting Oxycodone/Acetaminophen 1 tab 06/02/21 00:35 06/09/21 23:00 Oxycodone /Acetaminophen 5-325mg Tab PO 1 tab Q6H PRN Administration Pain, Moderate (4-6) Pantoprazole Sodium 40 mg 06/08/21 10:00 06/10/21 06:51 Pantoprazole 40 Mg Tab PO 40 mg QDAC KRISTIN Administration Sodium Bicarbonate 1,300 mg 06/02/21 18:00 06/10/21 09:35 Sodium Bicarbonate 650 Mg Tab PO 1,300 mg BID KRISTIN Administration Sodium Chloride 10 ml 06/02/21 10:00 06/10/21 09:35 Sodium Chloride 0.9% 10 Ml Flush Syringe IV 10 ml BID KRISTIN Administration Sodium Chloride 10 ml 06/02/21 00:31 Sodium Chloride 0.9% 10 Ml Flush Syringe IV PRN PRN LINE FLUSH
--- NOTE | 2021-06-10 10:32 | XRay Report ---
CHEST 1 VIEW INDICATION: Newly positive COVID-19/evaluate for pneumonia. COMPARISON: 06/01/2021 FINDINGS: Support devices: None. Heart: Within normal limits. Lungs/Pleura: There is poor inspiration. The lungs remain grossly clear. No large pleural effusion or pneumothorax. Additional findings: None. IMPRESSION: Grossly negative expiratory AP chest. No significant change since 06/01/2021. Signer Name: Akash Lima Jr, MD Signed: 06/10/2021 10:28 AM Workstation Name: [id number]
[2021-06-10 15:08] LABS: C-Reactive Protein 2.8 mg/dL (0.00-1.30)
[2021-06-10] MEDS: D5W/0.45% NACL 1,000 ML IV SCH (16:54)
[2021-06-11] MEDS: D5W/0.45% NACL 1,000 ML IV SCH (02:24)
[2021-06-11 04:38] LABS: Basophils % (Auto) 0.3 % (0.0-1.8); Eosinophils # (Auto) 0.2 K/mm3 (0.0-0.4); Eosinophils % (Auto) 2.7 % (0.0-4.3); Hematocrit 24.3 % (30.3-42.9); Hemoglobin 8.1 gm/dl (10.1-14.3); Lymphocytes # (Auto) 1.8 K/mm3 (1.2-5.4); Mean Corpuscular HGB Conc 33 % (30-34); Mean Corpuscular Volume 89 fl (79-97); Monocytes # (Auto) 0.8 K/mm3 (0.0-0.8); Monocytes % (Auto) 12.9 % (0.0-7.3); Red Blood Count 2.74 M/mm3 (3.65-5.03); Red Cell Distribution Width 15.9 % (13.2-15.2)
[2021-06-11 04:40] LABS: Platelet Count 89 K/mm3 (140-440)
[2021-06-11 04:58] LABS: Calcium 8.4 mg/dL (8.4-10.2)
[2021-06-11] MEDS: hydrALAZINE 25 MG TAB PO SCH ×3 (05:34→22:15)
[2021-06-11] MEDS: LEVOTHYROXINE 75 MCG TAB PO SCH (05:34)
[2021-06-11] MEDS: PANTOPRAZOLE 40 MG TAB PO SCH (10:22)
[2021-06-11] MEDS: FLUCONAZOLE 100 MG TAB PO SCH (10:22)
[2021-06-11] MEDS: DOCUSATE SODIUM 100 MG CAP PO SCH ×2 (10:22→22:14)
[2021-06-11] MEDS: HEPARIN 5,000 UNIT/1 ML VIAL SUB-Q SCH ×2 (10:22→22:14)
[2021-06-11] MEDS: SODIUM BICARBONATE 650 MG TAB PO SCH ×2 (10:22→22:14)
[2021-06-11] MEDS: levETIRAcetam 500 MG TAB PO SCH ×2 (10:23→22:15)
--- NOTE | 2021-06-11 17:35 | Progress Note ---
Assessment and Plan - Patient Problems (1) MITCH (acute kidney injury) Current Visit: Yes Status: Acute Plan to address problem: Renal function showing steady improvement with IVF hydration and treatment of UTI. Will monitor closely. (2) Metabolic acidosis Current Visit: Yes Status: Acute Plan to address problem: Continue current sodium bicarbonate supplementation. (3) Hyperkalemia Current Visit: Yes Status: Acute Plan to address problem: In the setting of MITCH. Showing improvement. (4) Urinary tract infection Current Visit: Yes Status: Acute Plan to address problem: Evidence of aide growth notes in urine culture, continues on diflucan therapy. (5) 2019 novel coronavirus detected Current Visit: Yes Status: Acute Plan to address problem: On appropriate isolation precautions. Asymptomatic at this time. Management per primary team. Subjective Date of service: 06/11/21 Principal diagnosis: MITCH Interval history: NO acute issues overnight per nursing staff. Objective - Exam Narrative Exam: Patient not examined directly in order to preserve PPE and decrease risk of transmission of COVID-19. Examination by primary team reviewed. - Vital Signs Vital signs: Vital Signs - 12hr 06/11/21 06/11/21 10:00 11:30 Temperature 99.2 F Pulse Rate 89 Respiratory 20 Rate Blood Pressure 153/65 O2 Sat by Pulse 99 99 Oximetry - Lab 06/11/21 03:37 06/11/21 03:37 Most recent lab results Calcium 8.4 mg/dL (8.4-10.2) 06/11/21 03:37 Magnesium 1.20 mg/dL (1.7-2.3) L 06/11/21 03:37 Urine Creatinine 105.1 mg/dL (0.1-20.0) H 06/03/21 13:26 Urine Sodium 39 mmol/L 06/03/21 13:26 Urine Total Protein 28 mg/dL (5-11.8) H 06/03/21 13:26 Medications & Allergies - Medications Allergies/Adverse Reactions: Allergies No Known Allergies Allergy (Unverified 04/15/21 08:22) Home Medications: Home Medications Medication Instructions Recorded Confirmed Last Taken Type Gabapentin 100 mg PO BID 11/28/16 06/05/21 04/14/21 History levETIRAcetam [Keppra TAB] 500 mg PO BID 11/28/16 06/05/21 04/14/21 21:00 History Torsemide [Demadex] 10 mg PO QDAY 12/26/20 06/05/21 04/14/21 History Pantoprazole [Protonix TAB] 20 mg PO QDAY tablet. 12/29/20 06/05/21 04/14/21 Rx Rifaximin [Xifaxan] 550 mg PO BID tablet 12/29/20 06/05/21 04/14/21 Rx oxyCODONE /ACETAMINOPHEN [Percocet 1 tab PO Q6H PRN #10 tablet 12/29/20 06/05/21 04/14/21 Rx 5/325 mg] Active Medications: Generic Name Dose Route Start Last Admin Trade Name Freq PRN Reason Stop Dose Admin Acetaminophen 650 mg 06/02/21 00:31 06/07/21 11:53 Acetaminophen 325 Mg Tab PO 650 mg Q4H PRN Administration Pain MILD(1-3)/Fever >100.5/GUEVARA Albuterol 2.5 mg 06/02/21 00:34 Albuterol 2.5 Mg/3 Ml Nebu IH Q3HRT PRN Shortness Of Breath Docusate Sodium 100 mg 06/02/21 10:00 06/11/21 10:22 Docusate Sodium 100 Mg Cap PO 100 mg BID KRISTIN Administration Heparin Sodium (Porcine) 5,000 unit 06/02/21 10:00 06/11/21 10:22 Heparin 5,000 Unit/1 Ml Vial SUB-Q 5,000 unit Q12HR KRISTIN Administration Hydralazine HCl 25 mg 06/08/21 22:00 06/11/21 05:34 Hydralazine 25 Mg Tab PO 25 mg Q8HR KRISTIN Administration Hydralazine HCl 10 mg 06/08/21 13:19 Hydralazine 20 Mg/1 Ml Inj IV Q4H PRN Hypertension Dextrose/Sodium Chloride 1,000 mls @ 75 mls/hr 06/03/21 10:00 06/11/21 02:24 D5/0.45ns IV 75 mls/hr DIRECT KRISTIN Administration Levetiracetam 500 mg 06/07/21 22:00 06/11/21 10:23 Levetiracetam 500 Mg Tab PO 500 mg BID KRISTIN Administration Levothyroxine Sodium 75 mcg 06/02/21 06:00 06/11/21 05:34 Levothyroxine 75 Mcg Tab PO 75 mcg DAILY@0600 KRISTIN Administration Naloxone HCl 0.1 mg 06/02/21 00:35 Naloxone 0.4 Mg/1 Ml Inj IV Q2MIN PRN Res Rate </= 8 or 02 SAT < 92% Ondansetron HCl 4 mg 06/02/21 00:31 Ondansetron 4 Mg/2 Ml Inj IV Q6H PRN Nausea And Vomiting Oxycodone/Acetaminophen 1 tab 06/02/21 00:35 06/09/21 23:00 Oxycodone /Acetaminophen 5-325mg Tab PO 1 tab Q6H PRN Administration Pain, Moderate (4-6) Pantoprazole Sodium 40 mg 06/08/21 10:00 06/11/21 10:22 Pantoprazole 40 Mg Tab PO 40 mg QDAC KRISTIN Administration Sodium Bicarbonate 1,300 mg 06/02/21 18:00 06/11/21 10:22 Sodium Bicarbonate 650 Mg Tab PO 1,300 mg BID KRISTIN Administration Sodium Chloride 10 ml 06/02/21 10:00 06/11/21 10:23 Sodium Chloride 0.9% 10 Ml Flush Syringe IV 10 ml BID KRISTIN Administration Sodium Chloride 10 ml 06/02/21 00:31 Sodium Chloride 0.9% 10 Ml Flush Syringe IV PRN PRN LINE FLUSH
--- NOTE | 2021-06-11 19:21 | Progress Note ---
Assessment and Plan Assessment and plan: --COVID-19 positive; 06/09/2021 Continue droplet and contact isolation check inflammatory markers, and consult ID in the morning Continue supportive care Oxygen evaluation if hypoxia start dexamethasone No remdesivir due to acute kidney injury Home O2 evaluation at discharge --Urinary tract infection Angela in urine, Continue Diflucan for total 7 days --Acute metabolic encephalopathy -CT head negative for acute abnormalities Multifactorial, dementia, probably UTI Treat the underlying cause, supportive care --Hyperkalemia; on admission 6.2 Resolved, patient received treatment Closely monitor electrolytes --Acute kidney injury ; present on admission Vasomotor nephropathy Gentle hydration, monitor renal function, avoid nephrotoxin Creatinine trending down 4.1 - 2.0 Nephrology following, plenty of oral fluids --Elevated troponin/non-ST elevation [place] type II No cardiac symptoms like chest pain or shortness of breath Cardiac enzymes trending down --Moderate malnutrition/hypoalbuminemia Albumin 3.0, nutrition supplements, supportive care Nutrition consult if needed --History of hypothyroidism Continue Synthroid 75 mcg daily --History of thrombocytopenia Closely monitor --History of liver mass/metastatic disease Outpatient follow-up with hematology oncology --History of stroke ; with residual weakness PT OT, possible home with home health on discharge --History of seizure; Seizure precautions, continue Keppra --DVT and GI PPx -On Protonix and heparin[caution thrombocytopenia] Significant improvement of renal function, creatinine today is 2.0 Nephrology following PT recommended subacute versus acute rehab placement DC planning per case management Closely monitor the patient and adjust management as needed Plan of care reviewed with the patient and her nurse Pending placement, patient is medically stable Daily hospital course: 06/03/2021: Patient is doing well. She is afebrile without acute GI symptoms. Patient denies dysuria abdominal pain lateral flank pain. MITCH is improving with IV fluids. Nephrology is following. 06/04/2021: Patient is doing well. MITCH progressively improving with IV fluids. Nephrology is following. Urine cultures grew yeast. Will discontinue Rocephin and start on Diflucan. Hopefully discharge soon with resolution of MITCH. 06/05/2021 : significant improvement of renal function, creatinine today is 2.0 Nephrology following PT recommended subacute versus acute rehab placement DC planning per case management 06/06/2021; Urine cultures positive for Angela Patient is on Diflucan DC planning per case management Subacute versus acute rehab placement 06/07/2021; Patient feels better receiving Diflucan for Angela UTI Case management assisting with placement subacute/SNF 06/08/21; Pending placement subacute vs SNF DC planning per case management Pending placement Patient is medically stable 06/09/2021; patient awaiting placement subacute versus SNF Paul PCR test sent Continue current management, continue Diflucan 06/10/2021; patient is Covid positive Isolation, O2 evaluation, no remdesivir due to acute kidney injury Follow ID evaluation and recommendations 06/11/2021; family considering hospice Possible discharge tomorrow Home with home hospice versus inpatient hospice DC planning per case management History Interval history: I have seen and examined the patient at the bedside Patient's chart and medications reviewed Patient feels slightly better Saturating well on room air Awaiting placement Hospitalist Physical - Constitutional Vitals: Temp Pulse Resp BP Pulse Ox 99.7 F H 85 20 163/75 98 06/11/21 17:55 06/11/21 17:55 06/11/21 17:55 06/11/21 17:55 06/11/21 17:55 General appearance: Present: no acute distress, well-nourished - EENT Eyes: Present: PERRL, EOM intact - Neck Neck: Present: supple, normal ROM - Respiratory Respiratory effort: normal Respiratory: bilateral: diminished, rhonchi, negative: rales, wheezing - Cardiovascular Rhythm: regular Heart Sounds: Present: S1 & S2 - Extremities Extremities: no ischemia, No edema - Abdominal General gastrointestinal: soft, non-tender, non-distended, normal bowel sounds - Integumentary Integumentary: Present: clear, warm - Psychiatric Psychiatric: other (Dementia) - Neurologic Neurologic: moves all extremities HEART Score - HEART Score Troponin: Troponin T 0.029 ng/mL (0.00-0.029) 06/02/21 05:53 Results - Labs CBC & Chem 7: 06/11/21 03:37 06/11/21 03:37 Labs: Laboratory Last Values WBC 6.0 K/mm3 (4.5-11.0) 06/11/21 03:37 RBC 2.74 M/mm3 (3.65-5.03) L 06/11/21 03:37 Hgb 8.1 gm/dl (10.1-14.3) L 06/11/21 03:37 Hct 24.3 % (30.3-42.9) L 06/11/21 03:37 MCV 89 fl (79-97) 06/11/21 03:37 MCH 30 pg (28-32) 06/11/21 03:37 MCHC 33 % (30-34) 06/11/21 03:37 RDW 15.9 % (13.2-15.2) H 06/11/21 03:37 Plt Count 89 K/mm3 (140-440) L 06/11/21 03:37 Lymph % (Auto) 30.0 % (13.4-35.0) 06/11/21 03:37 [place] % (Auto) 12.9 % (0.0-7.3) H 06/11/21 03:37 Eos % (Auto) 2.7 % (0.0-4.3) 06/11/21 03:37 Baso % (Auto) 0.3 % (0.0-1.8) 06/11/21 03:37 Lymph # (Auto) 1.8 K/mm3 (1.2-5.4) 06/11/21 03:37 [place] # (Auto) 0.8 K/mm3 (0.0-0.8) 06/11/21 03:37 Eos # (Auto) 0.2 K/mm3 (0.0-0.4) 06/11/21 03:37 Baso # (Auto) 0.0 K/mm3 (0.0-0.1) 06/11/21 03:37 Add Manual Diff Complete 06/03/21 04:22 Total Counted 100 06/03/21 04:22 Seg Neutrophils % 54.1 % (40.0-70.0) 06/11/21 03:37 Seg Neuts % (Manual) 66.0 % (40.0-70.0) 06/03/21 04:22 Lymphocytes % (Manual) 22.0 % (13.4-35.0) 06/03/21 04:22 Reactive Lymphs % (Man) 1.0 % 06/03/21 04:22 Monocytes % (Manual) 6.0 % (0.0-7.3) 06/03/21 04:22 Eosinophils % (Manual) 4.0 % (0.0-4.3) 06/03/21 04:22 Basophils % (Manual) 1.0 % (0.0-1.8) 06/03/21 04:22 Nucleated RBC % Not Reportable 06/03/21 04:22 Seg Neutrophils # 3.2 K/mm3 (1.8-7.7) 06/11/21 03:37 Seg Neutrophils # Man 2.7 K/mm3 (1.8-7.7) 06/03/21 04:22 Band Neutrophils # 0.0 K/mm3 06/03/21 04:22 Lymphocytes # (Manual) 0.9 K/mm3 (1.2-5.4) L 06/03/21 04:22 Abs React Lymphs (Man) 0.0 K/mm3 06/03/21 04:22 Monocytes # (Manual) 0.2 K/mm3 (0.0-0.8) 06/03/21 04:22 Eosinophils # (Manual) 0.2 K/mm3 (0.0-0.4) 06/03/21 04:22 Basophils # (Manual) 0.0 K/mm3 (0.0-0.1) 06/03/21 04:22 Metamyelocytes # 0.0 K/mm3 06/03/21 04:22 Myelocytes # 0.0 K/mm3 06/03/21 04:22 Promyelocytes # 0.0 K/mm3 06/03/21 04:22 Blast Cells # 0.0 K/mm3 06/03/21 04:22 WBC Morphology Not Reportable 06/03/21 04:22 Hypersegmented Neuts Not Reportable 06/03/21 04:22 Hyposegmented Neuts Not Reportable 06/03/21 04:22 Hypogranular Neuts Not Reportable 06/03/21 04:22 Smudge Cells Not Reportable 06/03/21 04:22 Toxic Granulation Not Reportable 06/03/21 04:22 Toxic Vacuolation Not Reportable 06/03/21 04:22 Dohle Bodies Not Reportable 06/03/21 04:22 Pelger-Huet Anomaly Not Reportable 06/03/21 04:22 Wilmer Rods Not Reportable 06/03/21 04:22 Platelet Estimate Consistent w auto 06/03/21 04:22 Clumped Platelets Not Reportable 06/03/21 04:22 Plt Clumps, EDTA Not Reportable 06/03/21 04:22 Large Platelets Not Reportable 06/03/21 04:22 Giant Platelets Not Reportable 06/03/21 04:22 Platelet Satelliting Not Reportable 06/03/21 04:22 Plt Morphology Comment Not Reportable 06/03/21 04:22 RBC Morphology Not Reportable 06/03/21 04:22 Dimorphic RBCs Not Reportable 06/03/21 04:22 Polychromasia Not Reportable 06/03/21 04:22 Hypochromasia Few 06/03/21 04:22 Poikilocytosis Not Reportable 06/03/21 04:22 Anisocytosis 1+ 06/03/21 04:22 Microcytosis Not Reportable 06/03/21 04:22 Macrocytosis Not Reportable 06/03/21 04:22 Spherocytes Not Reportable 06/03/21 04:22 Pappenheimer Bodies Not Reportable 06/03/21 04:22 Sickle Cells Not Reportable 06/03/21 04:22 Target Cells Not Reportable 06/03/21 04:22 Tear Drop Cells Not Reportable 06/03/21 04:22 Ovalocytes Few 06/03/21 04:22 Helmet Cells Not Reportable 06/03/21 04:22 Brown-Chrisney Bodies Not Reportable 06/03/21 04:22 [place] Rings Not Reportable 06/03/21 04:22 [place] Cells Not Reportable 06/03/21 04:22 Bite Cells Not Reportable 06/03/21 04:22 Crenated Cell Not Reportable 06/03/21 04:22 Elliptocytes Not Reportable 06/03/21 04:22 Acanthocytes (Spur) Not Reportable 06/03/21 04:22 Rouleaux Not Reportable 06/03/21 04:22 Hemoglobin C Crystals Not Reportable 06/03/21 04:22 Schistocytes Not Reportable 06/03/21 04:22 Malaria parasites Not Reportable 06/03/21 04:22 Al Bodies Not Reportable 06/03/21 04:22 Hem Pathologist Commnt No 06/03/21 04:22 PT 15.4 Sec. (12.2-14.9) H 06/01/21 20:38 INR 1.16 (0.87-1.13) H 06/01/21 20:38 D-Dimer 1170.90 ng/mlDDU (0-234) H 06/10/21 13:29 Sodium 139 mmol/L (137-145) 06/11/21 03:37 Potassium 4.5 mmol/L (3.6-5.0) 06/11/21 03:37 Chloride 110.2 mmol/L (98-107) H 06/11/21 03:37 Carbon Dioxide 22 mmol/L (22-30) 06/11/21 03:37 Anion Gap 11 mmol/L 06/11/21 03:37 BUN 14 mg/dL (7-17) 06/11/21 03:37 Creatinine 1.4 mg/dL (0.6-1.2) H 06/11/21 03:37 Estimated GFR 44 ml/min 06/11/21 03:37 BUN/Creatinine Ratio 10 % 06/11/21 03:37 Glucose 98 mg/dL (65-100) 06/11/21 03:37 POC Glucose 89 mg/dL (70-105) 06/02/21 03:01 Lactic Acid 1.10 mmol/L (0.7-2.0) 06/01/21 23:59 Calcium 8.4 mg/dL (8.4-10.2) 06/11/21 03:37 Magnesium 1.20 mg/dL (1.7-2.3) L 06/11/21 03:37 Ferritin 342.6 ng/mL (10.0-200.0) H 06/10/21 13:29 Total Bilirubin 0.50 mg/dL (0.1-1.2) 06/03/21 04:22 AST 25 units/L (5-40) 06/03/21 04:22 ALT 13 units/L (7-56) 06/03/21 04:22 Alkaline Phosphatase 73 units/L (35-129) 06/03/21 04:22 Ammonia 31.0 umol/L (25-60) 06/01/21 20:38 Lactate Dehydrogenase 200 units/L (91-180) H 06/10/21 13:29 Total Creatine Kinase 41 units/L (30-135) 06/01/21 20:38 Troponin T 0.029 ng/mL (0.00-0.029) 06/02/21 05:53 C-Reactive Protein 2.80 mg/dL (0.00-1.30) H 06/10/21 13:29 Total Protein 7.4 g/dL (6.3-8.2) 06/03/21 04:22 Albumin 2.6 g/dL (3.9-5) L 06/03/21 04:22 Albumin/Globulin Ratio 0.5 % 06/03/21 04:22 Triglycerides 64 mg/dL (2-149) 06/01/21 20:38 Cholesterol 95 mg/dL (50-199) 06/01/21 20:38 LDL Cholesterol Direct 50 mg/dL (50-130) 06/01/21 20:38 HDL Cholesterol 34 mg/dL (40-59) L 06/01/21 20:38 Cholesterol/HDL Ratio 2.79 % 06/01/21 20:38 TSH 0.230 mlU/mL (0.270-4.200) L 06/01/21 20:38 Free T4 1.43 ng/dL (0.76-1.46) 06/02/21 01:04 Thyroxine (T4) 10.4 ug/dL (4.0-12.0) 06/02/21 01:04 Urine Color Yellow (Yellow) 06/01/21 Unknown Urine Turbidity Turbid (Clear) 06/01/21 Unknown Urine pH 5.0 (5.0-7.0) 06/01/21 Unknown Ur Specific [place] 1.013 (1.003-1.030) 06/01/21 Unknown Urine Protein 100 mg/dl mg/dL (Negative) 06/01/21 Unknown Urine Glucose (UA) Neg mg/dL (Negative) 06/01/21 Unknown Urine Ketones Neg mg/dL (Negative) 06/01/21 Unknown Urine Blood Lg (Negative) 06/01/21 Unknown Urine Nitrite Neg (Negative) 06/01/21 Unknown Urine Bilirubin Neg (Negative) 06/01/21 Unknown Urine Urobilinogen < 2.0 mg/dL (<2.0) 06/01/21 Unknown Ur Leukocyte Esterase Mod (Negative) 06/01/21 Unknown Urine WBC (Auto) > 182.0 /HPF (0.0-6.0) H 06/01/21 Unknown Urine RBC (Auto) 174.0 /HPF (0.0-6.0) 06/01/21 Unknown U Epithel Cells (Auto) 32.0 /HPF (0-13.0) H 06/01/21 Unknown Urine Bacteria (Auto) 4+ /HPF (Negative) 06/01/21 Unknown Urine WBC Clumps 3+ /HPF 06/01/21 Unknown Urine Yeast (Budding) 3+ /HPF 06/01/21 Unknown Urine Creatinine 105.1 mg/dL (0.1-20.0) H 06/03/21 13:26 Urine Sodium 39 mmol/L 06/03/21 13:26 Urine Total Protein 28 mg/dL (5-11.8) H 06/03/21 13:26 Coronavirus (PCR) Positive (Negative) A 06/08/21 08:50 [place]/IV: Voiding Method Incontinent Active Medications - Current Medications Current Medications: Generic Name Dose Route Start Last Admin Trade Name Freq PRN Reason Stop Dose Admin Acetaminophen 650 mg 06/02/21 00:31 06/07/21 11:53 Acetaminophen 325 Mg Tab PO 650 mg Q4H PRN Administration Pain MILD(1-3)/Fever >100.5/GUEVARA Albuterol 2.5 mg 06/02/21 00:34 Albuterol 2.5 Mg/3 Ml Nebu IH Q3HRT PRN Shortness Of Breath Docusate Sodium 100 mg 06/02/21 10:00 06/11/21 10:22 Docusate Sodium 100 Mg Cap PO 100 mg BID KRISTIN Administration Heparin Sodium (Porcine) 5,000 unit 06/02/21 10:00 06/11/21 10:22 Heparin 5,000 Unit/1 Ml Vial SUB-Q 5,000 unit Q12HR KRISTIN Administration Hydralazine HCl 25 mg 06/08/21 22:00 06/11/21 05:34 Hydralazine 25 Mg Tab PO 25 mg Q8HR KRISTIN Administration Hydralazine HCl 10 mg 06/08/21 13:19 Hydralazine 20 Mg/1 Ml Inj IV Q4H PRN Hypertension Dextrose/Sodium Chloride 1,000 mls @ 75 mls/hr 06/03/21 10:00 06/11/21 02:24 D5/0.45ns IV 75 mls/hr DIRECT KRISTIN Administration Levetiracetam 500 mg 06/07/21 22:00 06/11/21 10:23 Levetiracetam 500 Mg Tab PO 500 mg BID KRISTIN Administration Levothyroxine Sodium 75 mcg 06/02/21 06:00 06/11/21 05:34 Levothyroxine 75 Mcg Tab PO 75 mcg DAILY@0600 KRISTIN Administration Naloxone HCl 0.1 mg 06/02/21 00:35 Naloxone 0.4 Mg/1 Ml Inj IV Q2MIN PRN Res Rate </= 8 or 02 SAT < 92% Ondansetron HCl 4 mg 06/02/21 00:31 Ondansetron 4 Mg/2 Ml Inj IV Q6H PRN Nausea And Vomiting Oxycodone/Acetaminophen 1 tab 06/02/21 00:35 06/09/21 23:00 Oxycodone /Acetaminophen 5-325mg Tab PO 1 tab Q6H PRN Administration Pain, Moderate (4-6) Pantoprazole Sodium 40 mg 06/08/21 10:00 06/11/21 10:22 Pantoprazole 40 Mg Tab PO 40 mg QDAC KRISTIN Administration Sodium Bicarbonate 1,300 mg 06/02/21 18:00 06/11/21 10:22 Sodium Bicarbonate 650 Mg Tab PO 1,300 mg BID KRISTIN Administration Sodium Chloride 10 ml 06/02/21 10:00 06/11/21 10:23 Sodium Chloride 0.9% 10 Ml Flush Syringe IV 10 ml BID KRISTIN Administration Sodium Chloride 10 ml 06/02/21 00:31 Sodium Chloride 0.9% 10 Ml Flush Syringe IV PRN PRN LINE FLUSH Nutrition/Malnutrition Assess - Dietary Evaluation Nutrition/Malnutrition Findings: Nutrition Notes Start: 06/02/21 10:10 Freq: Status: Active Protocol: Document 06/10/21 12:01 (Rec: 06/10/21 12:05 [id number]) Nutrition Notes Initial or Follow up Reassessment Current Diagnosis Acute Kidney Injury,Stroke Other Pertinent Diagnosis seizure, cirrhosis, liver mass , metastatic carinoma, anemia, debility, UTI Current Diet cardiac Mechanical soft Labs/Tests Cr 1.4 Pertinent Medications reviewed Height 5 ft Weight 81.8 kg [place] Body Weight (kg) 45.45 BMI 35.2 Weight change and time frame weight fluctuations noted Weight Status Obese Subjective/Other Information Per RN, pt not eating meals. She is drinking 100% of ONS and other fluids. Percent of energy/protein needs met: 57%/73% Burn Absent Trauma Absent GI Symptoms None Difficulty In Chewing Skin Integrity/Comment multiple pressure ulcer present Current % PO Negligible Minimum of two criteria No Energy Intake (severe) < or equal to 50% Estimated Energy Requirement > or equal to 5 days #2 Nutrition Diagnosis Increased nutrient needs ( specify in comment below) Comments: protein Diagnosis Progress(for reassessment Continues documentation) #1 Nutrition Diagnosis Inadequate oral intake Diagnosis Progress(for reassessment Continues documentation) Is patient on ventilator? No Is Patient Ambulatory and/or Out of Bed No REE-([facility]-confined to bed) 1458.096 Kcal/Kg value to use for calculation 15 Approximate Energy Requirements Using 1227 kcal/Kg Calculation Used for Recommendations Kcal/kg Additional Notes protein needs:55 - 68g (1.2 - 1.5 g/kgIBW) Fluid needs: 1 ml/kcal Nutrition Intervention Change Diet Order: Continue current diet Add Supplement/Snack (indicate name/kcal Ensure Enlive TID /protein ) Provides kCal: 1,050 Provides Protein (gm) 60 Goal #1 Meet at least 75% of kcal and protein needs via PO Goal #2 wound healing Anticipated Discharge Needs: Cardiac Mechanical Soft Diet with ONS PRN Follow-Up By: 06/12/21 Additional Comments F/U for intakes/ ONS tolerance
[2021-06-11] MEDS: oxyCODONE /ACETAMINOPHEN 5-325MG TAB PO PRN (22:15)
[2021-06-12 04:45] VITALS: BP 150/62
[2021-06-12] MEDS: LEVOTHYROXINE 75 MCG TAB PO SCH (06:05)
[2021-06-12] MEDS: hydrALAZINE 25 MG TAB PO SCH (06:05)
--- NOTE | 2021-06-12 08:53 | Discharge Summary ---
Providers - Providers Date of Admission: 06/01/21 23:20 Date of discharge: 06/12/21 Attending physician: GABBY MILLS 06/01/21 22:44 Consult to Physician [CONS] Urgent Comment: Consulting Provider: IVETT ROQUE Physician Instructions: Reason For Exam: ye 06/02/21 00:51 Physical Therapy Evaluation and Treat [CONS] Routine Comment: Reason For Exam: generalized weakness, rt sided deficits 06/02/21 00:52 Occupational Therapy Evaluate and Treat [CONS] Routine Comment: Reason For Exam: generalized weakness, rt sided deficits 06/02/21 03:05 Consult to Dietitian/Nutrition [CONS] Routine Physician Instructions: Reason For Exam: Reason for Consult: Malnutrition 06/03/21 13:10 Consult to Wound/ET Nurse [CONS] Routine Reason For Exam: wound eval Primary care physician: ACUTE CARE PHYSICIAN Hospitalization Reason for admission: Generalized weakness, urinary tract infection, COVID-19 Condition: Fair Hospital course: Generalized weakness and decreased urination: 80-year-old -Italian female with history of seizure, cirrhosis, liver mass,?? Metastatic hepatocellular carcinoma, dementia, thrombocytopenia, malnutrition and chronic normocytic anemia who presents [facility] ED with complaints of weakness and decreased urination. Initial work-up is consistent with urinary tract infection with Angela, completed the treatment Patient was also tested positive for COVID-19, treated per COVID-19 guidelines, acute kidney injury present on admission gradually improved, nephrology evaluated and optimize medications PT OT evaluated case management, has seen the patient and offered different options with the family, they wanted home with home hospice. Patient is hemodynamically and clinically stable with guarded prognosis because of multiple medical problems Discharge diagnosis; --COVID-19 positive; 06/09/2021 Continue droplet and contact isolation check inflammatory markers, and consult ID in the morning Continue supportive care Oxygen evaluation if hypoxia start dexamethasone No remdesivir due to acute kidney injury Home O2 evaluation at discharge --Urinary tract infection Angela in urine, Continue Diflucan for total 7 days --Acute metabolic encephalopathy -CT head negative for acute abnormalities Multifactorial, dementia, probably UTI Treat the underlying cause, supportive care --Hyperkalemia; on admission 6.2 Resolved, patient received treatment Closely monitor electrolytes --Acute kidney injury ; present on admission Vasomotor nephropathy Gentle hydration, monitor renal function, avoid nephrotoxin Creatinine trending down 4.1 - 2.0 Nephrology following, plenty of oral fluids --Elevated troponin/non-ST elevation DC type II No cardiac symptoms like chest pain or shortness of breath Cardiac enzymes trending down --Moderate malnutrition/hypoalbuminemia Albumin 3.0, nutrition supplements, supportive care Nutrition consult if needed --History of hypothyroidism Continue Synthroid 75 mcg daily --History of thrombocytopenia Closely monitor --History of liver mass/metastatic disease Outpatient follow-up with hematology oncology --History of stroke ; with residual weakness PT OT, possible home with home health on discharge --History of seizure; Seizure precautions, continue Keppra --DVT and GI PPx -On Protonix and heparin[caution thrombocytopenia] Patient has poor prognosis with multiple medical problems Being discharged to home hospice further management per hospice medical orderly Disposition: 50 HOSPICE/HOME Final Discharge Diagnosis (Prints w/discharge instructions): COVID-19 positive. Nonspecific elevation of troponins/type II. Moderate malnutrition. History of hypothyroidism. History of thrombocytopenia. History of liver mass metastatic disease. History of stroke. History of seizure. Acute kidney injury vasomotor nephropathy. Significantly improved. Urinary tract infection/Angela treated. obesity; BMI 35.2 Time spent for discharge: 35 min Core Measure Documentation - Palliative Care Palliative Care/ Comfort Measures: Hospice Care - Core Measures Any of the following diagnoses?: none Exam - Constitutional Vitals: Temp Pulse Resp BP Pulse Ox 98.7 F 82 16 150/62 98 06/12/21 04:00 06/12/21 04:00 06/12/21 04:00 06/12/21 04:00 06/12/21 04:00 General appearance: Present: no acute distress, well-nourished - EENT Eyes: Present: PERRL, EOM intact - Neck Neck: Present: supple, normal ROM - Respiratory Respiratory effort: normal Respiratory: bilateral: diminished, rhonchi, negative: rales, wheezing - Cardiovascular Rhythm: regular Heart Sounds: Present: S1 & S2 - Extremities Extremities: no ischemia, No edema - Abdominal General gastrointestinal: Present: soft, non-tender, non-distended - Integumentary Integumentary: Present: clear, warm - Musculoskeletal Musculoskeletal: strength equal bilaterally, generalized weakness - Psychiatric Psychiatric: appropriate mood/affect, cooperative - Neurologic Neurologic: moves all extremities Plan Activity: advance as tolerated, fall precautions Diet: other (Cardiac diet as tolerated) Additional Instructions: Patient is being discharged home with hospice. Further management per hospice medical orderly. If she has worsening symptoms contact MD or go to the nearest emergency room. Fall precautions, aspiration precautions Follow up with: PRIMARY CARE, [Primary Care Provider] - 7 Days YVONNE BETHEA DO [Staff Physician] - 7 Days Prescriptions: hydrALAZINE [Apresoline TAB] 25 mg PO Q8HR #90 tablet Docusate Sodium [Colace CAP] 100 mg PO BID #30 capsule Gabapentin 100 mg PO BID #60 cap levETIRAcetam [Keppra TAB] 500 mg PO BID #60 oxyCODONE /ACETAMINOPHEN [Percocet 5/325 mg] 1 tab PO Q6H PRN #10 tablet PRN Reason: Pain, Moderate (4-6) Pantoprazole [Protonix TAB] 20 mg PO QDAY #30 tablet. Sodium Bicarbonate 1,300 mg PO BID #60 tablet Levothyroxine [Synthroid] 75 mcg PO DAILY@0600 #30 tablet
[2021-06-12] MEDS: DOCUSATE SODIUM 100 MG CAP PO SCH (09:55)
[2021-06-12] MEDS: levETIRAcetam 500 MG TAB PO SCH (09:55)
[2021-06-12] MEDS: HEPARIN 5,000 UNIT/1 ML VIAL SUB-Q SCH (09:55)
[2021-06-12] MEDS: PANTOPRAZOLE 40 MG TAB PO SCH (09:55)
[2021-06-12] MEDS: SODIUM BICARBONATE 650 MG TAB PO SCH (09:56)
--- NOTE | 2021-06-12 13:43 | Progress Note ---
Assessment and Plan - Patient Problems (1) MITCH (acute kidney injury) Current Visit: Yes Status: Acute Plan to address problem: Renal function showing steady improvement with IVF hydration and treatment of UTI. Will monitor closely. patient is being discharged to home hospice. Stable from renal standpoint. (2) Metabolic acidosis Current Visit: Yes Status: Acute Plan to address problem: Continue current sodium bicarbonate supplementation. (3) Hyperkalemia Current Visit: Yes Status: Acute Plan to address problem: In the setting of MITCH. Showing improvement. (4) Urinary tract infection Current Visit: Yes Status: Acute Plan to address problem: Evidence of aide growth notes in urine culture, continues on diflucan therapy. (5) 2019 novel coronavirus detected Current Visit: Yes Status: Acute Plan to address problem: On appropriate isolation precautions. Asymptomatic at this time. Management per primary team. Subjective Date of service: 06/12/21 Principal diagnosis: MITCH Interval history: plan for discharge to home hospice today. Renal function stable. Objective - Exam Narrative Exam: Patient not examined directly in order to preserve PPE and decrease risk of transmission of COVID-19. Examination by primary team reviewed. - Vital Signs Vital signs: Vital Signs - 12hr 06/12/21 04:00 Temperature 98.7 F Pulse Rate 82 Respiratory 16 Rate Blood Pressure 150/62 [Left] O2 Sat by Pulse 98 Oximetry - Lab 06/11/21 03:37 06/11/21 03:37 Most recent lab results Calcium 8.4 mg/dL (8.4-10.2) 06/11/21 03:37 Magnesium 1.20 mg/dL (1.7-2.3) L 06/11/21 03:37 Urine Creatinine 105.1 mg/dL (0.1-20.0) H 06/03/21 13:26 Urine Sodium 39 mmol/L 06/03/21 13:26 Urine Total Protein 28 mg/dL (5-11.8) H 06/03/21 13:26 Medications & Allergies - Medications Allergies/Adverse Reactions: Allergies No Known Allergies Allergy (Unverified 04/15/21 08:22) Home Medications: Home Medications Medication Instructions Recorded Confirmed Last Taken Type Torsemide [Demadex] 10 mg PO QDAY 12/26/20 06/05/21 04/14/21 History Rifaximin [Xifaxan] 550 mg PO BID tablet 12/29/20 06/05/21 04/14/21 Rx Docusate Sodium [Colace CAP] 100 mg PO BID #30 capsule 06/12/21 Unknown Rx Gabapentin 100 mg PO BID #60 cap 06/12/21 Unknown Rx Levothyroxine [Synthroid] 75 mcg PO DAILY@0600 #30 tablet 06/12/21 Unknown Rx Pantoprazole [Protonix TAB] 20 mg PO QDAY #30 tablet. 06/12/21 Unknown Rx Sodium Bicarbonate 1,300 mg PO BID #60 tablet 06/12/21 Unknown Rx hydrALAZINE [Apresoline TAB] 25 mg PO Q8HR #90 tablet 06/12/21 Unknown Rx levETIRAcetam [Keppra TAB] 500 mg PO BID #60 06/12/21 Unknown Rx oxyCODONE /ACETAMINOPHEN [Percocet 1 tab PO Q6H PRN #10 tablet 06/12/21 Unknown Rx 5/325 mg] Active Medications: Generic Name Dose Route Start Last Admin Trade Name Freq PRN Reason Stop Dose Admin Acetaminophen 650 mg 06/02/21 00:31 06/07/21 11:53 Acetaminophen 325 Mg Tab PO 650 mg Q4H PRN Administration Pain MILD(1-3)/Fever >100.5/GUEVARA Albuterol 2.5 mg 06/02/21 00:34 Albuterol 2.5 Mg/3 Ml Nebu IH Q3HRT PRN Shortness Of Breath Docusate Sodium 100 mg 06/02/21 10:00 06/12/21 09:55 Docusate Sodium 100 Mg Cap PO 100 mg BID KRISTIN Administration Heparin Sodium (Porcine) 5,000 unit 06/02/21 10:00 06/12/21 09:55 Heparin 5,000 Unit/1 Ml Vial SUB-Q 5,000 unit Q12HR KRISTIN Administration Hydralazine HCl 25 mg 06/08/21 22:00 06/12/21 06:05 Hydralazine 25 Mg Tab PO 25 mg Q8HR KRISTIN Administration Hydralazine HCl 10 mg 06/08/21 13:19 Hydralazine 20 Mg/1 Ml Inj IV Q4H PRN Hypertension Levetiracetam 500 mg 06/07/21 22:00 06/12/21 09:55 Levetiracetam 500 Mg Tab PO 500 mg BID KRISTIN Administration Levothyroxine Sodium 75 mcg 06/02/21 06:00 06/12/21 06:05 Levothyroxine 75 Mcg Tab PO 75 mcg DAILY@0600 KRISTIN Administration Naloxone HCl 0.1 mg 06/02/21 00:35 Naloxone 0.4 Mg/1 Ml Inj IV Q2MIN PRN Res Rate </= 8 or 02 SAT < 92% Ondansetron HCl 4 mg 06/02/21 00:31 Ondansetron 4 Mg/2 Ml Inj IV Q6H PRN Nausea And Vomiting Oxycodone/Acetaminophen 1 tab 06/02/21 00:35 06/11/21 22:15 Oxycodone /Acetaminophen 5-325mg Tab PO 1 tab Q6H PRN Administration Pain, Moderate (4-6) Pantoprazole Sodium 40 mg 06/08/21 10:00 06/12/21 09:55 Pantoprazole 40 Mg Tab PO 40 mg QDAC KRISITN Administration Sodium Bicarbonate 1,300 mg 06/02/21 18:00 06/12/21 09:56 Sodium Bicarbonate 650 Mg Tab PO 1,300 mg BID KRISTIN Administration Sodium Chloride 10 ml 06/02/21 10:00 06/12/21 09:56 Sodium Chloride 0.9% 10 Ml Flush Syringe IV 10 ml BID KRISTIN Administration Sodium Chloride 10 ml 06/02/21 00:31 Sodium Chloride 0.9% 10 Ml Flush Syringe IV PRN PRN LINE FLUSH
== END 2021-06-12 15:38 | disposition hospice, home (50) | DRG 682 ==
LOC: ED 19:35 → 4A 23:20 → 3A 06-09 16:58
PROVIDERS: ADMIT Internal Medicine Geriatric Medicine; ATTEND Internal Medicine
DX: N17.0 Acute kidney failure with tubular necrosis (principal); G93.41 Metabolic encephalopathy; I21.A1 Myocardial infarction type 2; U07.1 COVID-19; N39.0 Urinary tract infection, site not specified; E44.0 Moderate protein-calorie malnutrition; E87.2 Acidosis; E87.5 Hyperkalemia; Z86.73 Personal history of transient ischemic attack (TIA), and cerebral infarction without residual deficits; I11.0 Hypertensive heart disease with heart failure; I50.9 Heart failure, unspecified; M19.90 Unspecified osteoarthritis, unspecified site; Z90.710 Acquired absence of both cervix and uterus; F03.90 Unspecified dementia, unspecified severity, without behavioral disturbance, psychotic disturbance, mood disturbance, and anxiety; K74.60 Unspecified cirrhosis of liver; R00.1 Bradycardia, unspecified; Z85.850 Personal history of malignant neoplasm of thyroid; D64.9 Anemia, unspecified; E66.9 Obesity, unspecified; Z68.35 Body mass index [BMI] 35.0-35.9, adult; Z71.3 Dietary counseling and surveillance
CPT/HCPCS: 36415; 70450; 71045; 76770; 80048; 80053; 80061; 81001; 82140; 82550; 82570; 82728; 82962; 83615; 83735; 84132; 84156; 84300; 84436; 84439; 84443; 84484; 85007; 85025; 85379; 85610; 86140; 87040; 87086; 93005; 94644; G0378; C9113; J0610; J0696; J1644; J1815; J1953; J7030; U0003